=== PATIENT | male | born 1945 | race Caucasian/White ===

== ENCOUNTER → 2017-04-03 11:54 | Emergency (ER) | payer MEDICARE ==
[~2017-04-03 11:54] MED LIST: Iodixanol* (CONTRAST) 320 MG/ML 100 ML SDV IV ONE; NS 0.9% 1000 ML* 1,000 ML IV ONE
[2017-04-03 13:34] LABS: Hematocrit 41 % (42-52); Hemoglobin 13.9 g/dl (14.0-18.0); Mean Corpuscular HGB Conc 34 g/dl (31-36); Mean Corpuscular Hemoglobin 30 pg (27-31); Mean Corpuscular Volume 90 fL (80-94); Mean Platelet Volume 8 um3 (7.4-10.4); Red Blood Count 4.56 10^6/ul (4.0-5.4); Red Cell Distribution Width 14 % (10.5-15); White Blood Count 6.2 10^3/ul (3.5-10.8)
[2017-04-03 13:49] LABS: ALT 16 U/L (7-52); AST 23 U/L (13-39); Albumin 4.1 g/dL (3.2-5.2); Alkaline Phosphatase 64 U/L (34-104); Anion Gap 2 mmol/L (2-11); BUN/Creatinine Ratio 12.4 (8-20); Blood Urea Nitrogen 12 mg/dL (6-24); C Reactive Protein < 1.00 mg/L (< 5.00); CO2 Carbon Dioxide 36 mmol/L (22-32); Calcium 9.7 mg/dL (8.6-10.3); Chloride 100 mmol/L (101-111); EGFR African American 98.4 (>60); EGFR Non-African American 76.5 (>60); Globulin 2.6 g/dL (2-4); Glucose 118 mg/dL (70-100); Lipase 28 U/L (11.0-82.0); Potassium 4.9 mmol/L (3.5-5.0); Sodium 138 mmol/L (133-145); Total Protein 6.7 g/dL (6.4-8.9)
[2017-04-03 13:52] LABS: Urine Bacteria Absent (Absent); Urine Bilirubin Negative (Negative); Urine Glucose Negative (Negative); Urine Nitrite Negative (Negative)
--- NOTE | 2017-04-03 14:10 | RAD ---
HISTORY: Right lower quadrant, right inguinal pain and swelling COMPARISONS: None TECHNIQUE: Multiple transverse and longitudinal ultrasound images were obtained of the scrotum, using grayscale, color Doppler, and spectral Doppler imaging. FINDINGS: RIGHT: RIGHT TESTICLE: The right testicle measures 4.8 x 2.3 x 3.2 cm. The right testicle is homogeneous in echotexture, without testicular parenchymal mass. Normal arterial and venous waveforms are identified within the right testicle on spectral Doppler imaging. RIGHT EPIDIDYMIS: The right epididymis measures 0.8 cm at the head. RIGHT SCROTUM: There is no hydrocele or varicocele. LEFT: LEFT TESTICLE: The left testicle measures 4.4 x 2.4 x 2.9 cm. The left testicle is homogeneous in echotexture, without testicular parenchymal mass. Normal arterial and venous waveforms are identified within the left testicle on spectral Doppler imaging. LEFT EPIDIDYMIS: The left epididymis measures 1 cm at the head. LEFT SCROTUM: There is no hydrocele or varicocele. OTHER: None IMPRESSION: NO TESTICULAR PARENCHYMAL MASS. NO SONOGRAPHIC FEATURES OF TORSION. PLEASE NOTE THAT PARTIAL OR INTERMITTENT TORSION MAY BE SONOGRAPHICALLY NORMAL.
--- NOTE | 2017-04-03 15:29 | RAD ---
CLINICAL HISTORY: Right lower quadrant pain, epigastric pain, inguinal hernia COMPARISON: December 23, 2015 TECHNIQUE: Multiple contiguous axial CT scans were obtained of the abdomen and pelvis after the administration of intravenous contrast. Coronal and sagittal multiplanar reformations are submitted for review. Oral contrast was administered. Delayed images were obtained through the abdomen and pelvis. FINDINGS: LUNG BASES: The lung bases are clear. LIVER: The liver is diffusely low in attenuation compared to the spleen. There are no focal hepatic parenchymal masses. BILE DUCTS: There is no intrahepatic or extrahepatic biliary dilatation. GALLBLADDER: The gallbladder is normal, without pericholecystic inflammatory change. PANCREAS: The pancreas is normal, without mass or ductal dilatation. SPLEEN: Normal in size and appearance. UPPER GI TRACT: Evaluation of the gastrointestinal tract is limited by incomplete gastric distention. The upper GI tract is unremarkable. SMALL BOWEL AND MESENTERY: The small bowel is normal in contour, course, and caliber. There is no obstruction or dilatation. COLON: There is large amount of stool throughout the colon. There is a tubular, vermiform, hollow viscus that is blind ending, and originates from the cecum, consistent with a normal appendix. There is no periappendiceal inflammatory change. This is best seen on coronal images 50 through 54. ADRENALS: Normal bilaterally. KIDNEYS: The kidneys are normal in shape, size, contour, and axis. There is no hydronephrosis or nephrolithiasis. BLADDER: The bladder is smooth in contour. PELVIC ORGANS: The prostate is diffusely enlarged. The seminal vesicles are symmetric. AORTA: There is calcific atherosclerotic disease of the abdominal aorta and its branches, without aneurysmal dilatation IVC: Unremarkable LYMPH NODES: There is no lymphadenopathy by size criteria. ABDOMINAL WALL: There is minimal amount of fluid noted along the right inguinal canal and spermatic cord BONES AND SOFT TISSUES: Degenerative changes noted of the spine. In the area of low attenuation of the right proximal thigh and the previous examination, there is a heterogeneously enhancing lesion measuring approximately 4.3 x 3.1 x 2.9 cm in size. OTHER: None IMPRESSION: 1. FATTY LIVER. 2. LARGE AMOUNT OF STOOL THROUGHOUT THE COLON. 3. ENLARGED PROSTATE. 4. NORMAL APPENDIX. 5. IN THE AREA OF SUSPECTED HEMATOMA OF THE RIGHT THIGH ON THE PREVIOUS EXAMINATION, THERE IS A HETEROGENEOUSLY ENHANCING LESION, MEASURING UP TO 4.3 CM IN SIZE. WHILE THIS MAY REPRESENT CHRONIC HEMATOMA, THE IMAGING APPEARANCE IS ATYPICAL. RECOMMEND CONSIDERATION OF FURTHER EVALUATION CONTRAST ENHANCED MRI OR TISSUE SAMPLING IN THE NONACUTE SETTING. 6. THERE IS MILD INFLAMMATORY CHANGE OF THE RIGHT INGUINAL CANAL AND ALONG THE SPERMATIC CORD.
--- NOTE | 2017-04-03 16:04 | ED ---
Fredrick He SooYoung, scribed for Matthew Mcarthur MD on 04/03/17 at 1215 . Abdominal Pain/Male - HPI Summary HPI Summary: A 71 y/o M presents to ED with c/o suprapubic and umbilicus abd pain onset yesterday, which was still present and worsening this AM around 0900. Pain radiates to back. Pt has had a known hernia for approx 1.5 years. Denies nausea , dysuria, testicular pain. Alleviating factors: lying supine. He took one Vicodin this AM. Last BM was this AM and he says it was nml. Denies pain at bedside. He ate breakfast OK. Denies prev abd surgery. PCP is Dr. Farooq. - History of Current Complaint Chief Complaint: EDAbdPain Stated Complaint: ABD PAIN Time Seen by Provider: 04/03/17 12:06 Hx Obtained From: Patient Onset/Duration: Gradual Onset, Lasting Days - onset yesterday, Still Present Timing: Constant Severity Initially: Moderate Severity Currently: Moderate Pain Intensity: 4 Pain Scale Used: 0-10 Numeric Location: Suprapubic, Umbilical Radiates: Yes Radiates to: Back Alleviating Factor(s): Position - supine Associated Signs And Symptoms: Negative: Urinary Symptoms, Decreased Appetite, Nausea, Other - neg: testicular pain - Allergies/Home Medications Allergies/Adverse Reactions: Allergies Allergy/AdvReac Type Severity Reaction Status Date / Time Cephalexin [From Keflex] Allergy Unknown Verified 12/23/15 11:18 Reaction Details relefan Allergy Nausea And Uncoded 12/23/15 11:18 Vomiting PMH/Surg Hx/FS Hx/Imm Hx Previously Healthy: No Endocrine/Hematology History: Reports: Hx Diabetes - type II, resolved with weight loss Cardiovascular History: Reports: Hx Hypercholesterolemia, Hx Hypertension, Other Cardiovascular Problems/Disorders - HX OF A-FIB GI History: Reports: Hx Gastroesophageal Reflux Disease History: Reports: Hx Benign Prostatic Hyperplasia Musculoskeletal History: Reports: Hx Osteoporosis Denies: Hx Rheumatoid Arthritis Sensory History: Reports: Hx Contacts or Glasses Opthamlomology History: Reports: Hx Contacts or Glasses - Cancer History Cancer Type, Location and Year: 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 Negative: Nausea Negative: dysuria, other - neg: testicular pain All Other Systems Reviewed And Are Negative: Yes Physical Exam Triage Information Reviewed: Yes Vital Signs On Initial Exam: Initial Vitals Temp Pulse Resp BP Pulse Ox 99.6 F 106 20 147/85 97 04/03/17 12:06 04/03/17 12:06 04/03/17 12:06 04/03/17 12:06 04/03/17 12:06 Vital Signs Reviewed: Yes Appearance: Positive: Well-Appearing, No Pain Distress Skin: Positive: Warm, Skin Color Reflects Adequate Perfusion, Dry Head/Face: Positive: Normal Head/Face Inspection Eyes: Positive: EOMI, EDILMA ENT: Positive: Normal ENT inspection Neck: Positive: Supple, Nontender Respiratory/Lung Sounds: Positive: Clear to Auscultation, Breath Sounds Present Cardiovascular: Positive: RRR Abdomen Description: Positive: Nontender, Soft Bowel Sounds: Positive: Present Male Genital Exam: Positive: other - R inguinal swelling that is reducible and non-tender. Testicular exam is nml, non-swollen, non-tender.. Negative: inguinal tenderness, testicular tenderness (R), testicular tenderness (L) Musculoskeletal: Positive: Normal, Strength/ROM Intact Neurological: Positive: Normal, Sensory/Motor Intact, Alert, Oriented to Person Place, Time Psychiatric: Positive: Affect/Mood Appropriate Diagnostics - Vital Signs Vital Signs Temp Pulse Resp BP Pulse Ox 04/03/17 12:06 99.6 F 106 20 147/85 97 - Laboratory Lab Results: Lab Results 04/03/17 04/03/17 04/03/17 Range/Units 13:22 13:22 13:22 WBC 6.2 (3.5-10.8) 10^3/ul RBC 4.56 (4.0-5.4) 10^6/ul Hgb 13.9 L (14.0-18.0) g/dl Hct 41 L (42-52) % MCV 90 (80-94) fL MCH 30 (27-31) pg MCHC 34 (31-36) g/dl RDW 14 (10.5-15) % Plt Count 239 (150-450) 10^3/ul MPV 8 (7.4-10.4) um3 Neut % (Auto) 62.5 (38-83) % Lymph % (Auto) 25.6 (25-47) % Irion % (Auto) 6.2 (1-9) % Eos % (Auto) 4.6 (0-6) % Baso % (Auto) 1.1 (0-2) % Absolute Neuts (auto) 3.9 (1.5-7.7) 10^3/ul Absolute Lymphs (auto) 1.6 (1.0-4.8) 10^3/ul Absolute Monos (auto) 0.4 (0-0.8) 10^3/ul Absolute Eos (auto) 0.3 (0-0.6) 10^3/ul Absolute Basos (auto) 0.1 (0-0.2) 10^3/ul Absolute Nucleated RBC 0 10^3/ul Nucleated RBC % 0 INR (Anticoag Therapy) 1.96 H (0.89-1.11) APTT 37.9 H (26.0-36.3) seconds Sodium 138 (133-145) mmol/L Potassium 4.9 (3.5-5.0) mmol/L Chloride 100 L (101-111) mmol/L Carbon Dioxide 36 H (22-32) mmol/L Anion Gap 2 (2-11) mmol/L BUN 12 (6-24) mg/dL Creatinine 0.97 (0.67-1.17) mg/dL Est GFR ( Amer) 98.4 (>60) Est GFR (Non-Af Amer) 76.5 (>60) BUN/Creatinine Ratio 12.4 (8-20) Glucose 118 H (70-100) mg/dL Lactic Acid (0.5-2.0) mmol/L Calcium 9.7 (8.6-10.3) mg/dL Total Bilirubin 0.50 (0.2-1.0) mg/dL AST 23 (13-39) U/L ALT 16 (7-52) U/L Alkaline Phosphatase 64 (34-104) U/L C-Reactive Protein < 1.00 (< 5.00) mg/L Total Protein 6.7 (6.4-8.9) g/dL Albumin 4.1 (3.2-5.2) g/dL Globulin 2.6 (2-4) g/dL Albumin/Globulin Ratio 1.6 (1-3) Lipase 28 (11.0-82.0) U/L Urine Color Urine Appearance Urine pH (5-9) Ur Specific [place] (1.010-1.030) Urine Protein (Negative) Urine Ketones (Negative) Urine Blood (Negative) Urine Nitrate (Negative) Urine Bilirubin (Negative) Urine Urobilinogen (Negative) Ur Leukocyte Esterase (Negative) Urine WBC (Auto) (Absent) Urine RBC (Auto) (Absent) Urine Bacteria (Absent) Urine Glucose (Negative) 04/03/17 04/03/17 Range/Units 13:22 13:22 WBC (3.5-10.8) 10^3/ul RBC (4.0-5.4) 10^6/ul Hgb (14.0-18.0) g/dl Hct (42-52) % MCV (80-94) fL MCH (27-31) pg MCHC (31-36) g/dl RDW (10.5-15) % Plt Count (150-450) 10^3/ul MPV (7.4-10.4) um3 Neut % (Auto) (38-83) % Lymph % (Auto) (25-47) % Irion % (Auto) (1-9) % Eos % (Auto) (0-6) % Baso % (Auto) (0-2) % Absolute Neuts (auto) (1.5-7.7) 10^3/ul Absolute Lymphs (auto) (1.0-4.8) 10^3/ul Absolute Monos (auto) (0-0.8) 10^3/ul Absolute Eos (auto) (0-0.6) 10^3/ul Absolute Basos (auto) (0-0.2) 10^3/ul Absolute Nucleated RBC 10^3/ul Nucleated RBC % INR (Anticoag Therapy) (0.89-1.11) APTT (26.0-36.3) seconds Sodium (133-145) mmol/L Potassium (3.5-5.0) mmol/L Chloride (101-111) mmol/L Carbon Dioxide (22-32) mmol/L Anion Gap (2-11) mmol/L BUN (6-24) mg/dL Creatinine (0.67-1.17) mg/dL Est GFR ( Amer) (>60) Est GFR (Non-Af Amer) (>60) BUN/Creatinine Ratio (8-20) Glucose (70-100) mg/dL Lactic Acid 1.3 (0.5-2.0) mmol/L Calcium (8.6-10.3) mg/dL Total Bilirubin (0.2-1.0) mg/dL AST (13-39) U/L ALT (7-52) U/L Alkaline Phosphatase (34-104) U/L C-Reactive Protein (< 5.00) mg/L Total Protein (6.4-8.9) g/dL Albumin (3.2-5.2) g/dL Globulin (2-4) g/dL Albumin/Globulin Ratio (1-3) Lipase (11.0-82.0) U/L Urine Color Yellow Urine Appearance Cloudy Urine pH 8.0 (5-9) Ur Specific [place] 1.006 L (1.010-1.030) Urine Protein Negative (Negative) Urine Ketones Negative (Negative) Urine Blood Negative (Negative) Urine Nitrate Negative (Negative) Urine Bilirubin Negative (Negative) Urine Urobilinogen Negative (Negative) Ur Leukocyte Esterase 3+ H (Negative) Urine WBC (Auto) 3+(>20/hpf) H (Absent) Urine RBC (Auto) Absent (Absent) Urine Bacteria Absent (Absent) Urine Glucose Negative (Negative) Result Diagrams: 04/03/17 13:22 04/03/17 13:22 Lab Statement: Any lab studies that have been ordered have been reviewed, and results considered in the medical decision making process. - CT ABD/PEL CT CT Interpretation: Positive (See Comments) - IMPRESSION: 1. FATTY LIVER. 2. LARGE AMOUNT OF STOOL THROUGHOUT THE COLON. 3. ENLARGED PROSTATE. 4. NORMAL APPENDIX. 5. IN THE AREA OF SUSPECTED HEMATOMA OF THE RIGHT THIGH ON THE PREVIOUS EXAMINATION, THERE IS A HETEROGENEOUSLY ENHANCING LESION, MEASURING UP TO 4.3 CM IN SIZE. WHILE THIS MAY REPRESENT CHRONIC HEMATOMA, THE IMAGING APPEARANCE IS ATYPICAL. RECOMMEND CONSIDERATION OF FURTHER EVALUATION CONTRAST ENHANCED MRI OR TISSUE SAMPLING IN THE NONACUTE SETTING. 6. THERE IS MILD INFLAMMATORY CHANGE OF THE RIGHT INGUINAL CANAL AND ALONG THE SPERMATIC CORD. ED physician has reviewed this radiology report and agrees. CT Interpretation Completed By: Radiologist - Ultrasound No standard instances Ultrasound Interpretation: No Acute Changes - Testicular U/S IMPRESSION: NO TESTICULAR PARENCHYMAL MASS. NO SONOGRAPHIC FEATURES OF TORSION. PLEASE NOTE THAT PARTIAL OR INTERMITTENT TORSION MAY BE SONOGRAPHICALLY NORMAL. ED physician has reviewed this radiology report and agrees. Ultrasound Interpretation Completed By: Radiologist Re-Evaluation - Re-Evaluation 1 Re-Evaluation Time: 15:44 Change: Improved Comment: Discussing results with pt and family. Abdominal Pain Fem Course/Dx - Course Course Of Treatment: Pt is a 71 y/o M presenting with known inguinal, has c/o diffuse abd pain radiating to back onset yesterday and worsening this AM around 0900. Denies nausea, dysuria, testicular pain. Alleviating factors: lying supine. He took one Vicodin this AM. Last BM was this AM and he says it was nml. Denies abd SHx. PCP is Dr. Farooq. Medications reviewed. BP noted and advised to follow up with PCP. Bloodwork obtained. UA results are 3+ leukocyte esterase present, 3+ WBCs, and 1.006 specific gravity. PAIN FREE IN THE ED. DISCUSSED RESULTS WITH PATIENT TO INCLUDE THE THIGH MASS. HE WILL F/U WITH HIS PMD AND SURGERY; WILL RETURN IF WORSE. NO CRITICAL CARE TIME. - Diagnoses Provider Diagnoses: Abdominal pain, Inguinal hernia, right Discharge - Discharge Plan Condition: Stable Disposition: HOME Patient Education Materials: Inguinal Hernia (ED), Abdominal Pain (ED) Referrals: [facility] [Provider Group] Joshua Gordillo MD [Medical Doctor] - Montserrat Farooq MD [Primary Care Provider] - Additional Instructions: FOLLOW UP WITH YOUR DOCTOR FOR YOUR PAIN, HERNIA AND THE MASS IN YOUR THIGH. AN MRI OR BIOPSY IS RECOMMENDED FOR THE MASS IN YOUR THIGH; DISCUSS THIS WITH YOUR DOCTOR. FOLLOW UP WITH SURGERY FOR THE HERNIA. RETURN TO THE EMERGENCY DEPARTMENT FOR ANY WORSENING OF YOUR CONDITION; PAIN, FEVER, VOMITING, YOU FEEL ILL OR QUESTIONS OR CONCERNS. The documentation as recorded by the Fredrick gold SooYoung accurately reflects the service I personally performed and the decisions made by me, Matthew Mcarthur MD.
[2017-04-03 16:22] VITALS: BP 122/87
== END | disposition home or self-care (01) ==
LOC: ED 11:54
DX: K40.90 Unilateral inguinal hernia, without obstruction or gangrene, not specified as recurrent (principal); R10.9 Unspecified abdominal pain; Z87.891 Personal history of nicotine dependence
CPT/HCPCS: 36415; 74177; 76870; 80053; 81003; 81015; 83605; 83690; 85025; 85610; 85730; 86140; 87086; 99282; Q9967

== ENCOUNTER 2017-05-12 09:33 | Observation (INO) | payer MEDICARE ==
[~2017-05-12 09:33] MED LIST changes: +Buffered Lidocaine 0.9% SYRIN* 5 ML/SYR SYRINGE INTRADERM ONE; +Dexamethasone IV* 4 MG/ML 1 ML (4 MG) IV SLOW PU ONE; +Famotidine IV* 10 MG/ML 2 ML (20 mg) IV ONE; -Iodixanol* (CONTRAST) 320 MG/ML 100 ML SDV IV ONE; -NS 0.9% 1000 ML* 1,000 ML IV ONE
[2017-05-12] MEDS ORDERED: Famotidine IV* 10 MG/ML 2 ML (20 mg) ONE (09:51)
[2017-05-12] MEDS ORDERED: Dexamethasone IV* 4 MG/ML 1 ML (4 MG) ONE (09:51)
[2017-05-12] MEDS ORDERED: Clindamycin 900 MG IVPREMIX(* 900 MG/50 ML SDV IV ONE (09:51)
[2017-05-12] MEDS ORDERED: Buffered Lidocaine 0.9% SYRIN* 5 ML/SYR SYRINGE ONE (09:52)
[2017-05-12] MEDS ORDERED: Midazolam* 1 MG/ML 5 ML VIAL (5 MG) ONE (11:38)
[2017-05-12] MEDS ORDERED: fentaNYL* 50 MCG/ML 2 ML VIAL (100 MCG VIAL) ONE ×2 (11:38→12:40)
[2017-05-12] MEDS ORDERED: Lidocaine 1% MPF wEPI 200,000* 30 ML SDV ONE (12:01)
[2017-05-12] MEDS ORDERED: Bupivacaine 0.5% SDV PF* 30 ML VIAL ONE (12:02)
[2017-05-12] MEDS ORDERED: Lidocaine 1% INJ* 10 MG/ML 30 ML SDV ONE (12:02)
[2017-05-12] MEDS ORDERED: Propofol* 10 MG/ML 20 ML BTL IV PUSH ONE ×2 (12:09→12:10)
[2017-05-12] MEDS ORDERED: Ketorolac INJ* 30 MG/ML 1 ML VIAL ONE (12:09)
[2017-05-12] MEDS ORDERED: Acetaminophen TAB* 325 MG PO PRN (13:12)
[2017-05-12] MEDS ORDERED: Ondansetron INJ* 2 MG/ML VIAL IV PRN (13:12)
[2017-05-12] MEDS ORDERED: Ibuprofen TAB* 600 MG PO PRN (13:12)
[2017-05-12] MEDS ORDERED: Diazepam TAB(*) 5 MG PO PRN (13:25)
[2017-05-12] MEDS ORDERED: Lisinopril TAB* 5 MG PO SCH (18:00)
[2017-05-12] MEDS: HYDROcodone/ACETAMIN 5-325 MG* 1 TAB PO PRN (20:30)
[2017-05-12] MEDS: Docusate CAP* 100 MG PO SCH (20:30)
--- NOTE | 2017-05-13 04:32 | OP ---
CC: Dr. Montserrat Farooq * DATE OF OPERATION: 05/12/17 - ROOM #337 DATE OF : 47 SURGEON: Joshua Gordillo MD PRINCIPLE SOFTWARE ENGINEER: Jenna Bejarano NP ANESTHESIOLOGIST: Beto Maddox MD ANESTHESIA: LMAC anesthesia. PRE-OP DIAGNOSIS: Right inguinal hernia. POST-OP DIAGNOSES: Right inguinal hernia with suspicious looking mole of right groin. OPERATIVE PROCEDURE: Open right inguinal hernia repair with mesh and biopsy of right groin mole. DESCRIPTION OF PROCEDURE: The patient was supine in the operating room table. After adequate intravenous sedation, compression stockings, Alex Hugger warmer, and intravenous antibiotics, the right groin was clipped and prepped with antiseptic and draped in a sterile fashion. Local infiltrative anesthesia was administered. Right at the site of the groin incision, was a 1-cm mole which had variegated color, brown around the edge and kind of a pinkish brown in the center, somewhat irregularly shaped. It was decided that the biopsy would be carried out. Therefore, approximately a 3-inch incision was created with a small ellipse encompassing the mole which was removed and sent in formalin for pathologic evaluation. Incision was carried down to the external oblique fascia , which had a little bit of a fibrotic appearance, this was opened in the direction of its fibers. Cord structures were encircled. The [place] drain tented upward. A large indirect hernia sac was identified, was dissected from the cord structures and back to the preperitoneal fat and then it was reduced and a cone mesh plug was placed into the internal ring and sutured there with 2- 0 Vicryl. A second piece of mesh was placed on the inguinal floor, sutured at the tubercle at the transverse abdominis at the inguinal ligament and tails were split, brought around the cord structures and tacked down laterally. External oblique was closed over the top with 2-0 Vicryl followed by 3-0 Vicryl for Osito's and 4-0 Prolene for skin followed by sterile dressing. He tolerated the procedure well, was brought to Recovery in good condition. There were no complications. No drains. Pathologic specimen was skin biopsy. Sponge and instrument counts were correct. Estimated blood loss was 30 mL. [id number]/[facility] #: [id number] [facility]
[2017-05-13] MEDS: HYDROcodone/ACETAMIN 5-325 MG* 1 TAB PO PRN (08:36)
[2017-05-13] MEDS: Docusate CAP* 100 MG PO SCH (08:36)
[2017-05-13 08:59] VITALS: BP 129/69
[2017-05-13] MEDS ORDERED: Potassium Chlor TAB* 20 MEQ TAB.ER PO SCH (09:00)
[2017-05-13] MEDS ORDERED: Finasteride TAB* 5 MG PO SCH (09:00)
[2017-05-13] MEDS ORDERED: Diltiazem CD CAP* 120 MG PO SCH (09:00)
--- NOTE | 2017-05-13 10:24 | PN ---
Progress Note - Progress Note Date of Service: 05/13/17 Note: See dictated discharge summary. Home today. Instructions reviewed. I left a message w/ nsg at Dr. Farooq's office re: Rx for Coumadin as patient had discarded his remaining Rx when told to hold preop.
[2017-05-13] MEDS ORDERED: Warfarin TAB(*) 4 MG PO ONE (17:00)
--- NOTE | 2017-05-14 03:36 | DS ---
CC: Dr. Montserrat Farooq, [facility] * DISCHARGE SUMMARY: DATE OF ADMISSION: 05/12/17 DATE OF DISCHARGE: 05/13/17 ATTENDING PHYSICIAN: Dr. Gordillo * (DICTATED BY [facility] [place]) HOSPITAL COURSE: Please refer to admission history and physical for admission details and separate operative report. The patient was taken to the operating room on 05/12/17 and underwent open right inguinal herniorrhaphy with mesh with Dr. Gordillo. There was also an apparent skin lesion in the area of the incision and this was excised as well (pathology pending). Surgery and postoperative course have otherwise been uneventful and as of the morning of discharge, the patient's pain was well controlled and he was tolerating diet well. PHYSICAL EXAMINATION: Vital Signs: Temperature 97.7, blood pressure 129/69, pulse 84, respirations 17, room air saturation 100%. General: Well-nourished, well- developed, in no acute distress. Heart: Irregularly irregular, consistent with known atrial fibrillation. Lungs: Clear to auscultation. Abdomen: Soft, nontender. The right groin incision reveals small amount of dried blood on the dressing. No evidence of active bleeding, no hematoma, minimal incisional tenderness. Clean, dry sterile dressing was placed, which the patient may remove in 24 to 48 hours. IMPRESSION: Status post open right inguinal herniorrhaphy with mesh and excision of skin lesion. PLAN: Home today. Instructions were reviewed. I put a call into Dr. Farooq's office for his Coumadin prescription, which he may resume this evening per his usual preoperative regimen. [place] [place] [id number]/[facility] #: [id number] [facility]
== END 2017-05-13 10:41 | disposition home or self-care (01) ==
LOC: OR 09:33 → SSU 13:12
PROVIDERS: ADMIT Surgery; ATTEND Surgery
PROC: 0YU50JZ Supplement Right Inguinal Region with Synthetic Substitute, Open Approach (ICD-10-PCS; principal; 2017-05-12 12:00)
DX: K40.90 Unilateral inguinal hernia, without obstruction or gangrene, not specified as recurrent (principal); I48.91 Unspecified atrial fibrillation; Z79.01 Long term (current) use of anticoagulants; E11.9 Type 2 diabetes mellitus without complications; I10 Essential (primary) hypertension; E78.5 Hyperlipidemia, unspecified; K21.9 Gastro-esophageal reflux disease without esophagitis; M10.9 Gout, unspecified; F41.9 Anxiety disorder, unspecified; Z88.8 Allergy status to other drugs, medicaments and biological substances; Z87.891 Personal history of nicotine dependence; A63.0 Anogenital (venereal) warts
CPT/HCPCS: 36415; 85610; 88305; A9270-GY; C1781; G0378; J1100; J1885; J2001; J2250; J2704; J3010

== ENCOUNTER 2017-06-07 08:56 | Emergency (ER) | payer MEDICARE ==
[2017-06-07] MEDS ORDERED: NS 0.9% 1000 ML* 1,000 ML IV ONE (09:31)
[2017-06-07] MEDS ORDERED: Diazepam TAB(*) 5 MG PO ONE (09:31)
[2017-06-07 09:53] LABS: Hematocrit 43 % (42-52); Hemoglobin 14.7 g/dl (14.0-18.0); Mean Corpuscular HGB Conc 34 g/dl (31-36); Mean Corpuscular Hemoglobin 31 pg (27-31); Mean Corpuscular Volume 90 fL (80-94); Mean Platelet Volume 8 um3 (7.4-10.4); Red Blood Count 4.78 10^6/ul (4.0-5.4); Red Cell Distribution Width 14 % (10.5-15)
[2017-06-07 10:08] LABS: ALT 15 U/L (7-52); AST 22 U/L (13-39); Albumin 4.4 g/dL (3.2-5.2); Alkaline Phosphatase 75 U/L (34-104); Anion Gap 11 mmol/L (2-11); BUN/Creatinine Ratio 9.3 (8-20); Blood Urea Nitrogen 9 mg/dL (6-24); C Reactive Protein < 1.00 mg/L (< 5.00); CO2 Carbon Dioxide 27 mmol/L (22-32); Calcium 10.2 mg/dL (8.6-10.3); Chloride 104 mmol/L (101-111); EGFR African American 98.4 (>60); EGFR Non-African American 76.5 (>60); Globulin 2.7 g/dL (2-4); Glucose 113 mg/dL (70-100); Potassium 3.6 mmol/L (3.5-5.0); Sodium 142 mmol/L (133-145); Total Protein 7.1 g/dL (6.4-8.9)
[2017-06-07 10:20] LABS: Urine Bacteria 1+ (Absent); Urine Bilirubin Negative (Negative); Urine Glucose Negative (Negative); Urine Nitrite Negative (Negative)
[2017-06-07 10:28] LABS: Benzodiazepine Urine Screen Presumptive Positive (None Detect)
[2017-06-07 10:33] LABS: Acetaminophen < 15 mcg/mL; Alcohol < 10 mg/dL (<10); Salicylate < 2.50 mg/dL (<30)
--- NOTE | 2017-06-07 10:56 | RAD ---
HISTORY: Intermittent headache, anticoagulation COMPARISONS: June 17, 2015 TECHNIQUE: Multiple contiguous axial CT scans were obtained of the head without intravenous contrast. FINDINGS: HEMORRHAGE/INFARCT: There is no hemorrhage or acute infarct. MASSES/SHIFT: There is no mass or shift. EXTRA-AXIAL SPACES: There are no extra-axial fluid collections. SULCI AND VENTRICLES: The sulci and ventricles are normal in size and position for the patient's stated age. CEREBRUM: There are no focal parenchymal abnormalities. BRAINSTEM: There are no focal parenchymal abnormalities. CEREBELLUM: There are no focal parenchymal abnormalities. VESSELS: The vessels are grossly normal. PARANASAL SINUSES: There is mucosal thickening of the ethmoid air cells and maxillary sinuses. There is postsurgical change to the left nasal cavity. ORBITS: The orbits are unremarkable. BONES AND SOFT TISSUE: No bone or soft tissue abnormalities are noted. OTHER: None IMPRESSION: NO ACUTE INTRACRANIAL PATHOLOGY.
--- NOTE | 2017-06-07 11:05 | RAD ---
Indication: Hematuria. Coronal and sagittal reconstructed images were obtained. Lung bases demonstrate no pleural fluid, nodules or masses. Heart is of normal size without evidence of pericardial effusion. Liver is normal in size. No focal lesions or intrahepatic ductal dilatation is noted. The gallbladder demonstrates no calcified gallstones. No pericholecystic fluid or wall thickening is identified. Spleen is normal in size. No adrenal masses are noted. No hydronephrosis is noted in either kidney. No retroperitoneal lymphadenopathy is noted. Atherosclerotic aorta is noted. There is a distended urinary bladder. Enlarged prostate is noted. No hernias are noted. Stool is noted throughout the colon. IMPRESSION: No evidence of obstructive uropathy is noted. Nonobstructing calculi in the right kidney. No abnormal masses or fluid collections are noted. CT of the abdomen and pelvis was performed without oral or IV contrast administration. [facility]
[2017-06-07] MEDS ORDERED: Ciprofloxacin TAB* 500 MG PO ONE (13:48)
[2017-06-07 13:54] VITALS: BP 159/90
--- NOTE | 2017-06-07 13:54 | ED ---
Adolfo He Benjamin, scribed for Matthew Mcarthur MD on 06/07/17 at 0931 . GI/ HPI - HPI Summary HPI Summary: 71yo male c/o having blood in urine yesterday and this morning. Pt had hernia surgery 3 weeks ago. Denies any abdominal or back pain. No testicular pain. Pt reports chills but denies fever. Pt is currently on Coumadin. Also states that he has been having pressure in his head lately. Hx of kidney stones, and afib. - History of Current Complaint Chief Complaint: EDUrogenitalProblems Time Seen by Provider: 06/07/17 09:10 Stated Complaint: BLOOD IN URINE Hx Obtained From: Patient Onset/Duration: Started Days Ago - 1 day ago, Still Present Timing: Intermittent Severity: Mild Current Severity: None Vaginal Bleeding Description: Bright Red Pain Intensity: 0 Location of Pain: None Associated Signs and Symptoms: Positive: Hematuria, Chills. Negative: Back Pain , Weakness, Nausea, Vomiting, Bruising, Abdominal Pain Aggravating Factor(s): Nothing Alleviating Factor(s): Nothing - Additional Pertinent History Primary Care Physician: [id number] - Allergy/Home Medications Allergies/Adverse Reactions: Allergies Allergy/AdvReac Type Severity Reaction Status Date / Time Cephalexin [From Keflex] Allergy Unknown Verified 05/12/17 10:11 Reaction Details Nabumetone [From Relafen] AdvReac Nausea And Verified 05/12/17 13:57 Vomiting Home Medications: Home Medications Cholecalciferol TAB* [Vitamin D TAB*] 1,000 unit PO DAILY 06/07/17 [History Confirmed 06/07/17] Dextromethorphan LIQ(NF) [[facility] Diabetes CF (NF)] 10 ml PO DAILY PRN 06/07 [History Confirmed 06/07/17] Diltiazem CD CAP* [Cardizem CD CAP*] 120 mg PO DAILY 06/07/17 [History Confirmed 06/07/17] Hydrocodone-Acetaminophen [Lorcet Plus 7.5-325 mg] 1 tab PO .5TIMESDAILY PRN 06/12 [History Confirmed 06/07/17] Magnesium Oxide (mg Supplement [Magnesium Oxide] 250 mg PO DAILY 06/07/17 [ History Confirmed 06/07/17] Potassium Chlor TAB* [Klor Con ER TAB*] 20 meq PO DAILY 06/07/17 [History Confirmed 06/07/17] PMH/Surg Hx/FS Hx/Imm Hx Endocrine/Hematology History: Denies: Hx Diabetes - type II, resolved with weight loss Cardiovascular History: Reports: Hx Hypercholesterolemia, Hx Hypertension - ON DAILY MEDS, STATES WELL CONTROLLED, Hx Peripheral Vascular Disease - STATES HAS ANEURYSM BEHIND RT KNEE, Other Cardiovascular Problems/Disorders - FOLLOWED BY DR CHEN, SEEN LAST WEEK & STATES CLEARED Denies: Hx Pacemaker/ICD GI History: Reports: Hx Gastroesophageal Reflux Disease - ON DAILY MEDS History: Reports: Hx Benign Prostatic Hyperplasia, Hx Kidney Stones - 04/12, PASSED Musculoskeletal History: Reports: Hx Osteoporosis Denies: Hx Rheumatoid Arthritis Sensory History: Reports: Hx Contacts or Glasses - READING GLASSES Denies: Hx Hearing Aid Comment Only: Hx Cataracts - STATES RIGHT EYE SLOWLY GROWING Opthamlomology History: Reports: Hx Contacts or Glasses - READING GLASSES Comment Only: Hx Cataracts - STATES RIGHT EYE SLOWLY GROWING Psychiatric History: Reports: Hx Anxiety - PRN MEDS, Hx Depression - GETS VERY DPRESSED, NO SPECIFIC MEDS Denies: Hx Panic Disorder - Cancer History Cancer Type, Location and Year: 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 Hx Anesthesia Reactions: No Infectious Disease History: No Infectious Disease History: Denies: Traveled Outside the [place] in Last 30 Days - Family History Known Family History: Positive: Cardiac Disease - father, Diabetes - father - Social History Alcohol Use: None Hx Substance Use: No Substance Use Type: Reports: None Hx Tobacco Use: Yes Smoking Status (MU): Former Smoker Type: Cigarettes Amount Used/How Often: 2PPD 10 YRS Length of Time of Smoking/Using Tobacco: 10 YRS Have You Smoked in the Last Year: No Review of Systems Positive: Chills. Negative: Fever Eyes: Negative ENT: Negative Cardiovascular: Negative Respiratory: Negative Gastrointestinal: Negative Positive: hematuria Musculoskeletal: Negative Skin: Negative Positive: Headache - pressure in head Psychological: Normal All Other Systems Reviewed And Are Negative: Yes Physical Exam - Summary Physical Exam Summary: General: well-appearing, no pain distress Skin: warm, color reflects adequate perfusion, dry Head: normal Eyes: EOMI, EDILMA ENT: normal Neck: supple, nontender Respiratory: CTA, breath sounds present :normal scrotum exam. Cardiovascular: Irregularly irregular rhythm Abdomen: soft, nontender. healing surgical wound on lower abdomen without any erythema, tenderness or drainage. Bowel: present Musculoskeletal: normal, strength/ROM intact Neurological: normal, sensory/motor intact, A&O x3 Psychological: anxious Triage Information Reviewed: Yes Vital Signs On Initial Exam: Initial Vitals Temp Pulse Resp BP Pulse Ox 98.2 F 81 19 168/98 100 06/07/17 09:02 06/07/17 09:02 06/07/17 09:02 06/07/17 09:02 06/07/17 09:02 Vital Signs Reviewed: Yes Diagnostics - Vital Signs Vital Signs Temp Pulse Resp BP Pulse Ox 06/07/17 09:02 98.2 F 81 19 168/98 100 - Laboratory Lab Results: Lab Results 06/07/17 06/07/17 06/07/17 Range/Units 09:41 09:41 09:41 WBC (3.5-10.8) 10^3/ul RBC (4.0-5.4) 10^6/ul Hgb (14.0-18.0) g/dl Hct (42-52) % MCV (80-94) fL MCH (27-31) pg MCHC (31-36) g/dl RDW (10.5-15) % Plt Count (150-450) 10^3/ul MPV (7.4-10.4) um3 Neut % (Auto) (38-83) % Lymph % (Auto) (25-47) % [place] % (Auto) (1-9) % Eos % (Auto) (0-6) % Baso % (Auto) (0-2) % Absolute Neuts (auto) (1.5-7.7) 10^3/ul Absolute Lymphs (auto) (1.0-4.8) 10^3/ul Absolute Monos (auto) (0-0.8) 10^3/ul Absolute Eos (auto) (0-0.6) 10^3/ul Absolute Basos (auto) (0-0.2) 10^3/ul Absolute Nucleated RBC 10^3/ul Nucleated RBC % INR (Anticoag Therapy) 2.07 H (0.77-1.02) APTT 45.7 H (26.0-36.3) seconds Sodium 142 (133-145) mmol/L Potassium 3.6 (3.5-5.0) mmol/L Chloride 104 (101-111) mmol/L Carbon Dioxide 27 (22-32) mmol/L Anion Gap 11 (2-11) mmol/L BUN 9 (6-24) mg/dL Creatinine 0.97 (0.67-1.17) mg/dL Est GFR ( Amer) 98.4 (>60) Est GFR (Non-Af Amer) 76.5 (>60) BUN/Creatinine Ratio 9.3 (8-20) Glucose 113 H (70-100) mg/dL Lactic Acid (0.5-2.0) mmol/L Calcium 10.2 (8.6-10.3) mg/dL Total Bilirubin 0.90 (0.2-1.0) mg/dL AST 22 (13-39) U/L ALT 15 (7-52) U/L Alkaline Phosphatase 75 (34-104) U/L C-Reactive Protein < 1.00 (< 5.00) mg/L B-Natriuretic Peptide 100 ( - 100) pg/mL Total Protein 7.1 (6.4-8.9) g/dL Albumin 4.4 (3.2-5.2) g/dL Globulin 2.7 (2-4) g/dL Albumin/Globulin Ratio 1.6 (1-3) TSH 1.40 (0.34-5.60) mcIU/mL Urine Color Urine Appearance Urine pH (5-9) Ur Specific [place] (1.010-1.030) Urine Protein (Negative) Urine Ketones (Negative) Urine Blood (Negative) Urine Nitrate (Negative) Urine Bilirubin (Negative) Urine Urobilinogen (Negative) Ur Leukocyte Esterase (Negative) Urine WBC (Auto) (Absent) Urine RBC (Auto) (Absent) Urine Bacteria (Absent) Urine Glucose (Negative) Salicylates < 2.50 (<30) mg/dL Urine Opiates Screen (None Detect) Acetaminophen < 15 mcg/mL Ur Barbiturates Screen (None Detect) Ur Phencyclidine Scrn (None Detect) Ur Amphetamines Screen (None Detect) U Benzodiazepines Scrn (None Detect) Urine Cocaine Screen (None Detect) U Cannabinoids Screen (None Detect) Serum Alcohol < 10 (<10) mg/dL 06/07/17 06/07/17 06/07/17 Range/Units 09:41 09:41 10:00 WBC 6.0 (3.5-10.8) 10^3/ul RBC 4.78 (4.0-5.4) 10^6/ul Hgb 14.7 (14.0-18.0) g/dl Hct 43 (42-52) % MCV 90 (80-94) fL MCH 31 (27-31) pg MCHC 34 (31-36) g/dl RDW 14 (10.5-15) % Plt Count 263 (150-450) 10^3/ul MPV 8 (7.4-10.4) um3 Neut % (Auto) 61.9 (38-83) % Lymph % (Auto) 26.0 (25-47) % [place] % (Auto) 4.9 (1-9) % Eos % (Auto) 5.8 (0-6) % Baso % (Auto) 1.4 (0-2) % Absolute Neuts (auto) 3.7 (1.5-7.7) 10^3/ul Absolute Lymphs (auto) 1.6 (1.0-4.8) 10^3/ul Absolute Monos (auto) 0.3 (0-0.8) 10^3/ul Absolute Eos (auto) 0.4 (0-0.6) 10^3/ul Absolute Basos (auto) 0.1 (0-0.2) 10^3/ul Absolute Nucleated RBC 0 10^3/ul Nucleated RBC % 0 INR (Anticoag Therapy) (0.77-1.02) APTT (26.0-36.3) seconds Sodium (133-145) mmol/L Potassium (3.5-5.0) mmol/L Chloride (101-111) mmol/L Carbon Dioxide (22-32) mmol/L Anion Gap (2-11) mmol/L BUN (6-24) mg/dL Creatinine (0.67-1.17) mg/dL Est GFR ( Amer) (>60) Est GFR (Non-Af Amer) (>60) BUN/Creatinine Ratio (8-20) Glucose (70-100) mg/dL Lactic Acid 1.2 (0.5-2.0) mmol/L Calcium (8.6-10.3) mg/dL Total Bilirubin (0.2-1.0) mg/dL AST (13-39) U/L ALT (7-52) U/L Alkaline Phosphatase (34-104) U/L C-Reactive Protein (< 5.00) mg/L B-Natriuretic Peptide ( - 100) pg/mL Total Protein (6.4-8.9) g/dL Albumin (3.2-5.2) g/dL Globulin (2-4) g/dL Albumin/Globulin Ratio (1-3) TSH (0.34-5.60) mcIU/mL Urine Color Urine Appearance Urine pH (5-9) Ur Specific [place] (1.010-1.030) Urine Protein (Negative) Urine Ketones (Negative) Urine Blood (Negative) Urine Nitrate (Negative) Urine Bilirubin (Negative) Urine Urobilinogen (Negative) Ur Leukocyte Esterase (Negative) Urine WBC (Auto) (Absent) Urine RBC (Auto) (Absent) Urine Bacteria (Absent) Urine Glucose (Negative) Salicylates (<30) mg/dL Urine Opiates Screen Presumptive positive H (None Detect) Acetaminophen mcg/mL Ur Barbiturates Screen None detected (None Detect) Ur Phencyclidine Scrn None detected (None Detect) Ur Amphetamines Screen None detected (None Detect) U Benzodiazepines Scrn Presumptive positive H (None Detect) Urine Cocaine Screen None detected (None Detect) U Cannabinoids Screen None detected (None Detect) Serum Alcohol (<10) mg/dL 06/07/17 Range/Units 10:00 WBC (3.5-10.8) 10^3/ul RBC (4.0-5.4) 10^6/ul Hgb (14.0-18.0) g/dl Hct (42-52) % MCV (80-94) fL MCH (27-31) pg MCHC (31-36) g/dl RDW (10.5-15) % Plt Count (150-450) 10^3/ul MPV (7.4-10.4) um3 Neut % (Auto) (38-83) % Lymph % (Auto) (25-47) % [place] % (Auto) (1-9) % Eos % (Auto) (0-6) % Baso % (Auto) (0-2) % Absolute Neuts (auto) (1.5-7.7) 10^3/ul Absolute Lymphs (auto) (1.0-4.8) 10^3/ul Absolute Monos (auto) (0-0.8) 10^3/ul Absolute Eos (auto) (0-0.6) 10^3/ul Absolute Basos (auto) (0-0.2) 10^3/ul Absolute Nucleated RBC 10^3/ul Nucleated RBC % INR (Anticoag Therapy) (0.77-1.02) APTT (26.0-36.3) seconds Sodium (133-145) mmol/L Potassium (3.5-5.0) mmol/L Chloride (101-111) mmol/L Carbon Dioxide (22-32) mmol/L Anion Gap (2-11) mmol/L BUN (6-24) mg/dL Creatinine (0.67-1.17) mg/dL Est GFR ( Amer) (>60) Est GFR (Non-Af Amer) (>60) BUN/Creatinine Ratio (8-20) Glucose (70-100) mg/dL Lactic Acid (0.5-2.0) mmol/L Calcium (8.6-10.3) mg/dL Total Bilirubin (0.2-1.0) mg/dL AST (13-39) U/L ALT (7-52) U/L Alkaline Phosphatase (34-104) U/L C-Reactive Protein (< 5.00) mg/L B-Natriuretic Peptide ( - 100) pg/mL Total Protein (6.4-8.9) g/dL Albumin (3.2-5.2) g/dL Globulin (2-4) g/dL Albumin/Globulin Ratio (1-3) TSH (0.34-5.60) mcIU/mL Urine Color Yellow Urine Appearance Clear Urine pH 7.0 (5-9) Ur Specific [place] 1.005 L (1.010-1.030) Urine Protein Negative (Negative) Urine Ketones Negative (Negative) Urine Blood 3+ H (Negative) Urine Nitrate Negative (Negative) Urine Bilirubin Negative (Negative) Urine Urobilinogen Negative (Negative) Ur Leukocyte Esterase 2+ H (Negative) Urine WBC (Auto) 2+(11-20/hpf) H (Absent) Urine RBC (Auto) 3+(>10/hpf) H (Absent) Urine Bacteria 1+ H (Absent) Urine Glucose Negative (Negative) Salicylates (<30) mg/dL Urine Opiates Screen (None Detect) Acetaminophen mcg/mL Ur Barbiturates Screen (None Detect) Ur Phencyclidine Scrn (None Detect) Ur Amphetamines Screen (None Detect) U Benzodiazepines Scrn (None Detect) Urine Cocaine Screen (None Detect) U Cannabinoids Screen (None Detect) Serum Alcohol (<10) mg/dL Result Diagrams: 06/07/17 09:41 06/07/17 09:41 Lab Statement: Any lab studies that have been ordered have been reviewed, and results considered in the medical decision making process. - CT CT Brain CT Interpretation: No Acute Changes CT Interpretation Completed By: Radiologist - ED physician has reviewed this radiology report and agrees. CT A/P WO CT Interpretation: No Acute Changes - IMPRESSION: No evidence of obstructive uropathy is noted. Nonobstructing calculi in the right kidney. No abnormal masses or fluid collections are noted. CT of the abdomen and pelvis was performed without oral or IV contrast administration. CT Interpretation Completed By: Radiologist - ED physician has reviewed this radiology report and agrees. - EKG 0953 Cardiac Rate: NL EKG Rhythm: Atrial Fibrillation ST Segment: Normal Re-Evaluation - Re-Evaluation 1 Re-Evaluation Time: 13:40 Comment: Discuss test results and plan of care GIGU Course/Dx - Course Course Of Treatment: BP noted and advised to follow up with PCP. Allergies noted. Medications reviewed. DISCUSSED RESULTS WITH PATIENT. F/U WITH PMD; RETURN IF WORSE. NO CRITICAL CARE TIME. - Diagnoses Provider Diagnoses: UTI (urinary tract infection), Hematuria, Headache Discharge - Discharge Plan Condition: Stable Disposition: HOME Prescriptions: Ciprofloxacin TAB* [Cipro 500 MG TAB*] 500 mg PO BID #19 tab Patient Education Materials: Urinary Tract Infection in Men (ED), Hematuria (ED ), Acute Headache (ED) Referrals: Montserrat Farooq MD [Primary Care Provider] - Additional Instructions: FOLLOW UP WITH YOUR DOCTOR. CALL TODAY TO ARRANGE FOLLOW UP. IF YOU CONTINUE TO HAVE BLOOD IN YOUR URINE, YOU WILL NEED TO BE EVALUATED BY UROLOGY. RETURN TO THE EMERGENCY DEPARTMENT FOR ANY WORSENING OF YOUR CONDITION; PAIN, FEVER, YOU FEEL ILL, YOU ARE UNABLE TO URINATE, EXCESSIVE BLOOD IN THE URINE OR QUESTIONS OR CONCERNS. The documentation as recorded by the Adolfo gold Benjamin accurately reflects the service I personally performed and the decisions made by me, Matthew Mcarthur MD.
== END 2017-06-07 14:06 | disposition home or self-care (01) ==
LOC: ED 08:56
DX: N39.0 Urinary tract infection, site not specified (principal); R31.9 Hematuria, unspecified; R51 Headache
CPT/HCPCS: 36415; 70450; 74176; 80053; 80307; 80320; 80329; 81003; 81015; 83605; 83880; 84443; 85025; 85610; 85730; 86140; 87086; 93005; 96360; 99282; A9270-GY; G0480

== ENCOUNTER 2017-07-05 00:32 | Emergency (ER) | payer MEDICARE ==
[2017-07-05] MEDS ORDERED: NS 0.9% 1000 ML* 1,000 ML IV ONE (02:56)
[2017-07-05 03:25] LABS: ABS Basophils 0.1 10^3/ul (0-0.2); ABS Eosinophils 0.5 10^3/ul (0-0.6); ABS Lymphocytes 2.4 10^3/ul (1.0-4.8); ABS Monocytes 0.6 10^3/ul (0-0.8); ABS Neutrophils 4.2 10^3/ul (1.5-7.7); ABS Nucleated RBC 0 10^3/ul; Eosinophil % 6.1 % (0-6); Hematocrit 42 % (42-52); Hemoglobin 14.1 g/dl (14.0-18.0); Lymphocyte % 30.9 % (25-47); Mean Corpuscular HGB Conc 34 g/dl (31-36); Mean Corpuscular Hemoglobin 30 pg (27-31); Mean Corpuscular Volume 91 fL (80-94); Mean Platelet Volume 8 um3 (7.4-10.4); Nucleated Red Blood Cells % 0.1; Platelet Count 241 10^3/ul (150-450); Red Blood Count 4.64 10^6/ul (4.0-5.4); Red Cell Distribution Width 14 % (10.5-15); White Blood Count 7.8 10^3/ul (3.5-10.8)
[2017-07-05 03:33] LABS: INR 2.24 (0.77-1.02)
[2017-07-05 03:40] LABS: EGFR Non-African American 83.4 (>60)
[2017-07-05 04:18] LABS: Urine Appearance Cloudy; Urine Blood 3+ (Negative); Urine Color Yellow; Urine Ketones Negative (Negative); Urine Protein Negative (Negative); Urine Specific Gravity 1.015 (1.010-1.030); Urine Urobilinogen Negative (Negative)
[2017-07-05] MEDS ORDERED: Iodixanol* (CONTRAST) 320 MG/ML 100 ML SDV IV ONE (05:23)
[2017-07-05] MEDS ORDERED: Ciprofloxacin TAB* 500 MG PO ONE (05:48)
[2017-07-05 06:48] VITALS: BP 137/73
--- NOTE | 2017-07-05 07:10 | ED ---
Jamison He Natalie, scribed for Matthew Mcarthur MD on 07/05/17 at 0251 . GI/ HPI - HPI Summary HPI Summary: The pt is a 71 y/o M presenting to the ED c/o groin pain starting today. The pain is described as a burning and feeling like a bee-sting. The pain is rated 6/10. He does not currently have pain. Pt additionally c/o increased frequency of urination, green urine that started two weeks ago, dysuria, chills, and normal BM. Pt denies testicular pain, leg pain, and fever. He had hernia operation 3 weeks ago. - History of Current Complaint Chief Complaint: EDGeneral Time Seen by Provider: 07/05/17 02:39 Stated Complaint: GROIN PAIN Hx Obtained From: Patient Onset/Duration: Started Hours Ago, Still Present Pain Intensity: 6 Location of Pain: Groin Pain Characteristics: Burning, Other: - "bee sting" Associated Signs and Symptoms: Positive: Dysuria, Chills, Other: - POSITIVE: "green" urine, normal BM; NEGATIVE: testicular or leg pain. Negative: Fever - Additional Pertinent History Primary Care Physician: [id number] - Allergy/Home Medications Allergies/Adverse Reactions: Allergies Allergy/AdvReac Type Severity Reaction Status Date / Time Cephalexin [From Keflex] Allergy Unknown Verified 05/12/17 10:11 Reaction Details Nabumetone [From Relafen] AdvReac Nausea And Verified 05/12/17 13:57 Vomiting PMH/Surg Hx/FS Hx/Imm Hx Previously Healthy: No Endocrine/Hematology History: Denies: Hx Diabetes - type II, resolved with weight loss Cardiovascular History: Reports: Hx Hypercholesterolemia, Hx Hypertension - ON DAILY MEDS, STATES WELL CONTROLLED, Hx Peripheral Vascular Disease - STATES HAS ANEURYSM BEHIND RT KNEE, Other Cardiovascular Problems/Disorders - FOLLOWED BY DR CHEN, SEEN LAST WEEK & STATES CLEARED Denies: Hx Pacemaker/ICD GI History: Reports: Hx Gastroesophageal Reflux Disease - ON DAILY MEDS History: Reports: Hx Benign Prostatic Hyperplasia, Hx Kidney Stones - 04/12, PASSED Musculoskeletal History: Reports: Hx Osteoporosis Denies: Hx Rheumatoid Arthritis Sensory History: Reports: Hx Contacts or Glasses - READING GLASSES Denies: Hx Hearing Aid Comment Only: Hx Cataracts - STATES RIGHT EYE SLOWLY GROWING Opthamlomology History: Reports: Hx Contacts or Glasses - READING GLASSES Comment Only: Hx Cataracts - STATES RIGHT EYE SLOWLY GROWING Psychiatric History: Reports: Hx Anxiety - PRN MEDS, Hx Depression - GETS VERY DPRESSED, NO SPECIFIC MEDS Denies: Hx Panic Disorder - Cancer History Cancer Type, Location and Year: 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 Hx Anesthesia Reactions: No Infectious Disease History: No Infectious Disease History: Denies: Traveled Outside the [place] in Last 30 Days - Family History Known Family History: Positive: Cardiac Disease - father, Diabetes - father - Social History Alcohol Use: None Hx Substance Use: No Substance Use Type: Reports: None Hx Tobacco Use: Yes Smoking Status (MU): Former Smoker Type: Cigarettes Amount Used/How Often: 2PPD 10 YRS Length of Time of Smoking/Using Tobacco: 10 YRS Have You Smoked in the Last Year: No Review of Systems Negative: Fever Eyes: Negative ENT: Negative Cardiovascular: Negative Respiratory: Negative Positive: Abdominal Pain Positive: dysuria Musculoskeletal: Negative Skin: Negative Neurological: Negative Psychological: Normal All Other Systems Reviewed And Are Negative: Yes Physical Exam Triage Information Reviewed: Yes Vital Signs On Initial Exam: Initial Vitals Temp Pulse Resp BP Pulse Ox 98.9 F 84 18 142/89 99 07/05/17 00:40 07/05/17 00:40 07/05/17 00:40 07/05/17 00:40 07/05/17 00:40 Vital Signs Reviewed: Yes Appearance: Positive: Well-Appearing, No Pain Distress Skin: Positive: Warm, Skin Color Reflects Adequate Perfusion, Dry Head/Face: Positive: Normal Head/Face Inspection Eyes: Positive: EOMI, EDILMA ENT: Positive: Normal ENT inspection Neck: Positive: Supple, Nontender Respiratory/Lung Sounds: Positive: Clear to Auscultation, Breath Sounds Present Cardiovascular: Positive: RRR Abdomen Description: Positive: Soft, Other: - mild tenderness in suprapubic region, no erythema Bowel Sounds: Positive: Present Musculoskeletal: Positive: Strength/ROM Intact, Other - pedal edema, calves nontender Neurological: Positive: Normal, Sensory/Motor Intact, Alert, Oriented to Person Place, Time - [place] Coma Scale Coma Scale Total: 15 Diagnostics - Vital Signs Vital Signs Temp Pulse Resp BP Pulse Ox 07/05/17 00:40 98.9 F 84 18 142/89 99 - Laboratory Lab Results: Lab Results 07/05/17 07/05/17 07/05/17 Range/Units 02:34 03:04 03:04 WBC (3.5-10.8) 10^3/ul RBC (4.0-5.4) 10^6/ul Hgb (14.0-18.0) g/dl Hct (42-52) % MCV (80-94) fL MCH (27-31) pg MCHC (31-36) g/dl RDW (10.5-15) % Plt Count (150-450) 10^3/ul MPV (7.4-10.4) um3 Neut % (Auto) (38-83) % Lymph % (Auto) (25-47) % [place] % (Auto) (1-9) % Eos % (Auto) (0-6) % Baso % (Auto) (0-2) % Absolute Neuts (auto) (1.5-7.7) 10^3/ul Absolute Lymphs (auto) (1.0-4.8) 10^3/ul Absolute Monos (auto) (0-0.8) 10^3/ul Absolute Eos (auto) (0-0.6) 10^3/ul Absolute Basos (auto) (0-0.2) 10^3/ul Absolute Nucleated RBC 10^3/ul Nucleated RBC % INR (Anticoag Therapy) 2.24 H (0.77-1.02) APTT 43.0 H (26.0-36.3) seconds Sodium 138 (133-145) mmol/L Potassium 3.6 (3.5-5.0) mmol/L Chloride 101 (101-111) mmol/L Carbon Dioxide 33 H (22-32) mmol/L Anion Gap 4 (2-11) mmol/L BUN 10 (6-24) mg/dL Creatinine 0.90 (0.67-1.17) mg/dL Est GFR ( Amer) 107.3 (>60) Est GFR (Non-Af Amer) 83.4 (>60) BUN/Creatinine Ratio 11.1 (8-20) Glucose 104 H (70-100) mg/dL Lactic Acid (0.5-2.0) mmol/L Calcium 9.4 (8.6-10.3) mg/dL Total Bilirubin 0.60 (0.2-1.0) mg/dL AST 22 (13-39) U/L ALT 14 (7-52) U/L Alkaline Phosphatase 54 (34-104) U/L C-Reactive Protein 6.53 H (< 5.00) mg/L Total Protein 6.7 (6.4-8.9) g/dL Albumin 4.1 (3.2-5.2) g/dL Globulin 2.6 (2-4) g/dL Albumin/Globulin Ratio 1.6 (1-3) Lipase 18 (11.0-82.0) U/L Urine Color Yellow Urine Appearance Cloudy Urine pH 6.0 (5-9) Ur Specific [place] 1.015 (1.010-1.030) Urine Protein Negative (Negative) Urine Ketones Negative (Negative) Urine Blood 3+ H (Negative) Urine Nitrate Negative (Negative) Urine Bilirubin Negative (Negative) Urine Urobilinogen Negative (Negative) Ur Leukocyte Esterase 3+ H (Negative) Urine WBC (Auto) 3+(>20/hpf) H (Absent) Urine RBC (Auto) 3+(>10/hpf) H (Absent) Calcium Oxalate Crystal Present H (Absent) Urine Bacteria Absent (Absent) Urine Glucose Negative (Negative) Urine Ascorbic Acid * H (Negative) 07/05/17 07/05/17 Range/Units 03:04 03:04 WBC 7.8 (3.5-10.8) 10^3/ul RBC 4.64 (4.0-5.4) 10^6/ul Hgb 14.1 (14.0-18.0) g/dl Hct 42 (42-52) % MCV 91 (80-94) fL MCH 30 (27-31) pg MCHC 34 (31-36) g/dl RDW 14 (10.5-15) % Plt Count 241 (150-450) 10^3/ul MPV 8 (7.4-10.4) um3 Neut % (Auto) 54.7 (38-83) % Lymph % (Auto) 30.9 (25-47) % [place] % (Auto) 7.5 (1-9) % Eos % (Auto) 6.1 H (0-6) % Baso % (Auto) 0.8 (0-2) % Absolute Neuts (auto) 4.2 (1.5-7.7) 10^3/ul Absolute Lymphs (auto) 2.4 (1.0-4.8) 10^3/ul Absolute Monos (auto) 0.6 (0-0.8) 10^3/ul Absolute Eos (auto) 0.5 (0-0.6) 10^3/ul Absolute Basos (auto) 0.1 (0-0.2) 10^3/ul Absolute Nucleated RBC 0 10^3/ul Nucleated RBC % 0.1 INR (Anticoag Therapy) (0.77-1.02) APTT (26.0-36.3) seconds Sodium (133-145) mmol/L Potassium (3.5-5.0) mmol/L Chloride (101-111) mmol/L Carbon Dioxide (22-32) mmol/L Anion Gap (2-11) mmol/L BUN (6-24) mg/dL Creatinine (0.67-1.17) mg/dL Est GFR ( Amer) (>60) Est GFR (Non-Af Amer) (>60) BUN/Creatinine Ratio (8-20) Glucose (70-100) mg/dL Lactic Acid 0.8 (0.5-2.0) mmol/L Calcium (8.6-10.3) mg/dL Total Bilirubin (0.2-1.0) mg/dL AST (13-39) U/L ALT (7-52) U/L Alkaline Phosphatase (34-104) U/L C-Reactive Protein (< 5.00) mg/L Total Protein (6.4-8.9) g/dL Albumin (3.2-5.2) g/dL Globulin (2-4) g/dL Albumin/Globulin Ratio (1-3) Lipase (11.0-82.0) U/L Urine Color Urine Appearance Urine pH (5-9) Ur Specific [place] (1.010-1.030) Urine Protein (Negative) Urine Ketones (Negative) Urine Blood (Negative) Urine Nitrate (Negative) Urine Bilirubin (Negative) Urine Urobilinogen (Negative) Ur Leukocyte Esterase (Negative) Urine WBC (Auto) (Absent) Urine RBC (Auto) (Absent) Calcium Oxalate Crystal (Absent) Urine Bacteria (Absent) Urine Glucose (Negative) Urine Ascorbic Acid (Negative) Result Diagrams: 07/05/17 03:04 07/05/17 03:04 Lab Statement: Any lab studies that have been ordered have been reviewed, and results considered in the medical decision making process. - CT Abdomen/Pelvis CT CT Interpretation: Positive (See Comments) - Tiny right renal stone. Large amount of solid stool. Possible neurogenic bladder. Mild prostate enlargement. Soft tissue mass anterior to the right femoral neck could represent neoplasm and should be further evaluated with enhanced MRI. ED physician has reviewed this report. CT Interpretation Completed By: Radiologist LENA Course/Dx - Course Course Of Treatment: Advised to follow up with PCP. Medications noted. Allergies noted. DISCUSSED RESULTS WITH PATIENT TO INCLUDE THE RIGHT THIGH MASS. DISCUSSED THE THIGH MASS WITH DR AU, HEMATOLOGY/ONCOLOGY. PATIENT WILL F/U WITH HEMATOLOGY/ONCOLOGY AND PMD; RETURN IF WORSE. - Diagnoses Provider Diagnoses: UTI (urinary tract infection), Mass of right thigh, Abdominal pain Discharge - Discharge Plan Condition: Stable Disposition: HOME Prescriptions: Ciprofloxacin TAB* [Cipro 500 MG TAB*] 500 mg PO BID #13 tab Patient Education Materials: Urinary Tract Infection in Men (ED), Abdominal Pain (ED) Referrals: Montserrat Farooq MD [Primary Care Provider] - Additional Instructions: FOLLOW UP WITH YOUR PRIMARY CARE DOCTOR FOR THE UTI AND WITH HEMATOLOGY/ ONCOLOGY FOR THE MASS IN YOUR RIGHT THIGH. THE MASS IN YOUR RIGHT THIGH NEEDS FURTHER EVALUATION BY MRI AND/OR BIOPSY IT COULD BE CANCER. RETURN TO THE EMERGENCY DEPARTMENT FOR ANY WORSENING OF YOUR CONDITION OR QUESTIONS OR CONCERNS. The documentation as recorded by the Jamison gold Natalie accurately reflects the service I personally performed and the decisions made by me, Matthew Mcarthur MD.
--- NOTE | 2017-07-05 08:23 | RAD ---
INDICATION: Suprapubic pain. Recent hernia repair. COMPARISON: June 07, [address] TECHNIQUE: Multidetector CT images were obtained from the lung bases to the ischial tuberosities with 96 mL Visipaque 320 IV and oral contrast. Multiplanar reformation. REPORT: Unremarkable visualized inferior thorax. Unremarkable liver and gallbladder. Negative for biliary dilatation. Mildly atrophic pancreas. Unremarkable spleen. Enteric contrast extends to the ileum but does not reach the ileocecal valve. No CT abnormality of the upper GI, small bowel, medially extending appendix, or colon. Moderately large volume of stool within the colon. Negative for ascites or free air. Mild subcutaneous and fascia edema at the RIGHT groin corresponds with history of recent hernia repair. The RIGHT spermatic cord and pampiniform plexus complex remains larger than the LEFT however the discrepancy is decreased compared with the prior exam. No recurrent or new hernia evident. Normal adrenal glands. 2 mm nonobstructing calyceal stone lower pole RIGHT kidney without change. Symmetric nephrograms and pyelograms. Negative for suspicious focal renal lesions or hydronephrosis. Unremarkable nondilated ureters. Moderately distended urinary bladder without CT evidence for bladder wall thickening. Enlarged prostate with extensive macroscopic calcification. The enlarged prostate protrudes into the floor of the urinary bladder. Negative for lymphadenopathy. Normal diameter abdominal aorta and iliac arteries with mild atherosclerotic plaque. Physiologic distention of the IVC. 3.7 cm AP by 4.6 cm transverse by 5.1 cm cephalocaudal heterogeneously enhancing mass within the anterior skeletal muscle compartment of the RIGHT thigh subjacent to the tensor fascia césar and rectus femoris muscle and superficial to the vastus lateralis is concerning for a primary sarcoma or a metastatic lesion. No additional soft tissue plane lesions evident. Negative for suspicious focal osseous lesions. Lumbar sacral spine degenerative spondylosis and facet joint osteoarthritis. Degenerative spondylosis and facet joint osteoarthritis results in moderately severe acquired central canal stenosis at L4-L5 without significant interval change. IMPRESSION: 1. Normal appendix documented. No acute pathologic process of the alimentary tract evident. 2. Negative for ascites or free air. 3. Negative for recurrent or new hernia. Mild postsurgical change of the RIGHT groin corresponding with history of recent hernia repair. The RIGHT spermatic cord and pampiniform plexus complex remains larger than the LEFT however the discrepancy is decreased compared with the prior exam. 4. Enlarged prostate protrudes into the floor of the urinary bladder. Moderately distended urinary bladder without gross CT evidence for wall thickening or other abnormality. Correlate for BPH/urinary retention. 5. Small nonobstructing RIGHT renal stone. 6. Suspicious soft tissue mass within the proximal RIGHT thigh anterior muscle compartment. Targeted ultrasound is suggested to assess for feasibility of ultrasound-guided biopsy.
== END 2017-07-05 07:17 | disposition home or self-care (01) ==
LOC: ED 00:32
DX: N39.0 Urinary tract infection, site not specified (principal); M79.9 Soft tissue disorder, unspecified; N20.0 Calculus of kidney; N40.0 Benign prostatic hyperplasia without lower urinary tract symptoms; Z87.891 Personal history of nicotine dependence; Z88.3 Allergy status to other anti-infective agents; Z88.8 Allergy status to other drugs, medicaments and biological substances
CPT/HCPCS: 36415; 74177; 80053; 81003; 81015; 83605; 83690; 85025; 85610; 85730; 86140; 87086; 96360; 99283; A9270-GY; Q9967

== ENCOUNTER → 2017-12-28 19:38 | Emergency (ER) | payer MEDICARE ==
[2017-12-28 20:27] LABS: ABS Basophils 0.1 10^3/ul (0-0.2); ABS Eosinophils 0.4 10^3/ul (0-0.6); ABS Lymphocytes 2.4 10^3/ul (1.0-4.8); ABS Monocytes 0.6 10^3/ul (0-0.8); ABS Neutrophils 4.5 10^3/ul (1.5-7.7); ABS Nucleated RBC 0 10^3/ul; Eosinophil % 4.5 % (0-6); Hematocrit 38 % (42-52); Hemoglobin 12.9 g/dl (14.0-18.0); Lymphocyte % 29.9 % (25-47); Mean Corpuscular HGB Conc 34 g/dl (31-36); Mean Corpuscular Hemoglobin 31 pg (27-31); Mean Corpuscular Volume 91 fL (80-94); Mean Platelet Volume 8.8 um3 (7.4-10.4); Nucleated Red Blood Cells % 0.1; Platelet Count 238 10^3/ul (150-450); Red Cell Distribution Width 14 % (10.5-15); White Blood Count 7.9 10^3/ul (3.5-10.8)
--- NOTE | 2017-12-28 20:33 | RAD ---
INDICATION: Dizziness COMPARISON: CT brain June 07, 2017 TECHNIQUE: Noncontrast axial source images were acquired from the skull base to the vertex. FINDINGS: Ventricles/sulci: There is cortical atrophy with compensatory dilatation of the CSF spaces. Brain parenchyma: There is no focal parenchymal finding, evidence of intracranial mass, or intracranial mass effect. Intracranial hemorrhage:None. Extra-axial spaces: There are no abnormal extra axial fluid collections or evidence of extra-axial mass. Calvarium: There is no calvarial fracture or other calvarial abnormality. Scalp: There is no evidence of scalp or extracalvarial soft tissue abnormality. Paranasal sinuses/mastoid: The paranasal sinuses and mastoid air cells are clear. There is postsurgical change involving the left nasal cavity Other: None. IMPRESSION: NO ACUTE INTRACRANIAL FINDINGS. AGE-RELATED CORTICAL ATROPHY.
[2017-12-28 20:38] LABS: INR 2.91 (0.77-1.02)
--- NOTE | 2017-12-28 20:39 | RAD ---
INDICATION: Dizziness COMPARISON: Chest x-ray March 21, 2015 TECHNIQUE: A seated AP portable view obtained at 2033 hours is submitted. FINDINGS: Bones/Soft Tissues: There are no acute bony findings. Cardiomediastinal: The cardiomediastinal silhouette is normal. Lungs: There is an irregular 1.5 cm opacity projected over the left midlung field worrisome for a pulmonary parenchymal mass. This represents a new finding relative to the 2015 examination. Suggest contrast enhanced CT imaging the chest. As part of follow-up Pleura: There are no pleural effusions. Other: None IMPRESSION: 1.5 CM LEFT SIDED PARENCHYMAL OPACITY SUSPICIOUS FOR BRONCHOGENIC CARCINOMA. SUGGEST CT IMAGING FOLLOW-UP. Findings called to ED.
[2017-12-28 20:44] LABS: EGFR Non-African American 77.2 (>60)
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
[2017-12-28 21:58] VITALS: BP 138/86
== END | disposition home or self-care (01) ==
LOC: ED 19:38
DX: R42 Dizziness and giddiness (principal); R91.8 Other nonspecific abnormal finding of lung field; K92.1 Melena; R10.9 Unspecified abdominal pain; Z86.39 Personal history of other endocrine, nutritional and metabolic disease; I10 Essential (primary) hypertension; E78.00 Pure hypercholesterolemia, unspecified; I73.9 Peripheral vascular disease, unspecified; Z86.79 Personal history of other diseases of the circulatory system; K21.9 Gastro-esophageal reflux disease without esophagitis; N40.0 Benign prostatic hyperplasia without lower urinary tract symptoms; Z87.442 Personal history of urinary calculi; F41.9 Anxiety disorder, unspecified; F32.9 Major depressive disorder, single episode, unspecified; Z85.828 Personal history of other malignant neoplasm of skin; Z88.6 Allergy status to analgesic agent; Z88.1 Allergy status to other antibiotic agents; Z82.49 Family history of ischemic heart disease and other diseases of the circulatory system; Z83.3 Family history of diabetes mellitus; Z87.891 Personal history of nicotine dependence
CPT/HCPCS: 36415; 70450; 71045; 80053; 82270; 83605; 83735; 84484; 85025; 85610; 85730; 93005; 99283

== ENCOUNTER 2018-01-27 12:31 | Emergency (ER) | payer MEDICARE ==
[2018-01-27 12:41] VITALS: BP 132/75
[2018-01-27] MEDS ORDERED: Lidocaine 1%* 5 ML VIAL ONE (13:00)
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
--- NOTE | 2018-01-29 21:46 | UC ---
- Progress Note Progress Note: 01/29/2018 PT Dx w/ Cellulitis and Rx Augmentin PO. Wound culture positive for MRSA and Staph Aureus. Final report shows resistance to Augmentin and multiple other antibiotics. Sensitive to Doxycycline PO. Please Call PT and Advise to stop Augmentin PO and a new prescription for Doxycycline PO 1 tab PO BID x 10 days sent to pharmacy. Maddie Mario Discharge - Sign-Out/Discharge Documenting (check all that apply): Patient Departure - D/C home - Discharge Plan Condition: Stable Disposition: HOME Prescriptions: Amoxicillin/Clavulanate TAB* [Augmentin TAB 875*] 875 mg PO BID #20 tab Clindamycin HCl 150 mg PO QID #40 capsule Patient Education Materials: Cellulitis (ED) Referrals: Montserrat Farooq MD [Primary Care Provider] - Additional Instructions: Take medications as instructed and adhere to plan Take Acetaminophen or ibuprofen for pain or fever Increase your fluid intake Return to the or go to the emergency department if symptoms worsen Follow-up with primary care physician in next 2-3 days - Billing Disposition and Condition Condition: STABLE Disposition: Home
--- NOTE | 2018-01-29 21:53 | UC ---
- Progress Note Progress Note: 01/29/2018 Pt Rx doxycycline for his cellulitis since positive for MRSA and S. Aureus. Please inform the patient he needs to stop taking Calcium Carbonate while he takes the Doxycycline PO since it can cause and adverse reaction. Thank you Maddie Mario PA-C Discharge - Sign-Out/Discharge Documenting (check all that apply): Patient Departure - D/c home - Discharge Plan Condition: Stable Disposition: HOME Prescriptions: DOXYcycline CAP(*) [DOXYcycline 100MG CAP(*)] 100 mg PO BID #20 cap Patient Education Materials: Cellulitis (ED) Referrals: Montserrat Farooq MD [Primary Care Provider] - Additional Instructions: Take medications as instructed and adhere to plan Take Acetaminophen or ibuprofen for pain or fever Increase your fluid intake Return to the or go to the emergency department if symptoms worsen Follow-up with primary care physician in next 2-3 days - Billing Disposition and Condition Condition: STABLE Disposition: Home
== END 2018-01-27 13:30 | disposition home or self-care (01) ==
LOC: UCEAST 12:31
DX: L02.413 Cutaneous abscess of right upper limb (principal); L03.113 Cellulitis of right upper limb; B95.62 Methicillin resistant Staphylococcus aureus infection as the cause of diseases classified elsewhere; Z88.1 Allergy status to other antibiotic agents; Z88.8 Allergy status to other drugs, medicaments and biological substances; Z87.891 Personal history of nicotine dependence
CPT/HCPCS: 10060; 87070; 87077; 87186; 87205; 87640; 87641

== ENCOUNTER 2018-01-30 09:34 | Emergency (ER) | payer MEDICARE ==
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
[2018-01-30 09:41] VITALS: BP 127/83
== END 2018-01-30 10:00 | disposition home or self-care (01) ==
LOC: UCEAST 09:34
DX: L02.413 Cutaneous abscess of right upper limb (principal); Z88.6 Allergy status to analgesic agent; Z88.8 Allergy status to other drugs, medicaments and biological substances; Z82.49 Family history of ischemic heart disease and other diseases of the circulatory system; Z83.3 Family history of diabetes mellitus; Z87.891 Personal history of nicotine dependence
CPT/HCPCS: 99212; G0463

== ENCOUNTER 2018-02-01 09:30 | Emergency (ER) | payer MEDICARE ==
[2018-02-01 09:39] VITALS: BP 136/78
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
== END 2018-02-01 10:40 | disposition home or self-care (01) ==
LOC: UCEAST 09:30
DX: L02.411 Cutaneous abscess of right axilla (principal); Z88.1 Allergy status to other antibiotic agents; Z88.8 Allergy status to other drugs, medicaments and biological substances; Z82.49 Family history of ischemic heart disease and other diseases of the circulatory system; Z83.3 Family history of diabetes mellitus; Z87.891 Personal history of nicotine dependence
CPT/HCPCS: 99211; G0463

== ENCOUNTER 2018-02-03 06:22 | Emergency (ER) | payer MEDICARE ==
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
[2018-02-03 07:40] LABS: ABS Basophils 0.1 10^3/ul (0-0.2); ABS Eosinophils 0.5 10^3/ul (0-0.6); ABS Lymphocytes 1.7 10^3/ul (1.0-4.8); ABS Monocytes 0.4 10^3/ul (0-0.8); ABS Neutrophils 3.5 10^3/ul (1.5-7.7); ABS Nucleated RBC 0 10^3/ul; Eosinophil % 7.7 % (0-6); Hematocrit 39 % (42-52); Hemoglobin 13.2 g/dl (14.0-18.0); Lymphocyte % 28.3 % (25-47); Mean Corpuscular HGB Conc 34 g/dl (31-36); Mean Corpuscular Hemoglobin 31 pg (27-31); Mean Corpuscular Volume 91 fL (80-94); Mean Platelet Volume 7.9 um3 (7.4-10.4); Nucleated Red Blood Cells % 0.1; Platelet Count 284 10^3/ul (150-450); Red Blood Count 4.25 10^6/ul (4.00-5.40); Red Cell Distribution Width 14 % (10.5-15); White Blood Count 6.2 10^3/ul (3.5-10.8)
--- NOTE | 2018-02-03 07:45 | RAD ---
INDICATION: Hemoptysis. Known left chest mass COMPARISON: Chest x-ray December 28, 2017; CT chest January 12, 2018 TECHNIQUE: PA and lateral dual-energy views were obtained. FINDINGS: Bones/Soft Tissues: There are no acute bony findings. Cardiomediastinal: The cardiomediastinal silhouette is normal. Lungs: There are no infiltrates. There is hyperinflation with mild chronic interstitial change and there is a known left chest mass as best evaluated on the recent CT. The chest x-ray appearance is unchanged Pleura: There are no pleural effusions. Other: None IMPRESSION: LEFT CHEST MASS. HYPERINFLATION. NO ACUTE FINDINGS.
[2018-02-03 07:49] LABS: INR 2.51 (0.77-1.02)
[2018-02-03 07:57] LABS: EGFR Non-African American 75.4 (>60)
[2018-02-03 08:14] VITALS: BP 144/91
== END 2018-02-03 08:20 | disposition home or self-care (01) ==
LOC: ED 06:22
DX: R04.2 Hemoptysis (principal); R91.1 Solitary pulmonary nodule; I10 Essential (primary) hypertension; I48.91 Unspecified atrial fibrillation; K21.9 Gastro-esophageal reflux disease without esophagitis; Z79.01 Long term (current) use of anticoagulants; Z79.899 Other long term (current) drug therapy; Z87.891 Personal history of nicotine dependence; Z88.3 Allergy status to other anti-infective agents
CPT/HCPCS: 36415; 71046; 80053; 83605; 85025; 85610; 85730; 86140; 99283

== ENCOUNTER 2018-04-08 12:18 | Emergency (ER) | payer MEDICARE ==
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
[2018-04-08 13:54] VITALS: BP 120/81
== END 2018-04-08 13:52 | disposition home or self-care (01) ==
LOC: ED 12:18
DX: K92.0 Hematemesis (principal); E11.9 Type 2 diabetes mellitus without complications; I48.91 Unspecified atrial fibrillation; Z79.01 Long term (current) use of anticoagulants; E78.00 Pure hypercholesterolemia, unspecified; I10 Essential (primary) hypertension; I73.9 Peripheral vascular disease, unspecified; G47.30 Sleep apnea, unspecified; K21.9 Gastro-esophageal reflux disease without esophagitis; Z87.442 Personal history of urinary calculi; Z87.891 Personal history of nicotine dependence; C76.0 Malignant neoplasm of head, face and neck; C78.00 Secondary malignant neoplasm of unspecified lung
CPT/HCPCS: 99282

== ENCOUNTER 2018-04-27 23:39 | Emergency (ER) | payer MEDICARE ==
[2018-04-28 01:09] LABS: ABS Basophils 0.1 10^3/ul (0-0.2); ABS Eosinophils 0.5 10^3/ul (0-0.6); ABS Lymphocytes 2.1 10^3/ul (1.0-4.8); ABS Monocytes 0.5 10^3/ul (0-0.8); ABS Neutrophils 3.9 10^3/ul (1.5-7.7); ABS Nucleated RBC 0 10^3/ul; Eosinophil % 7.1 % (0-6); Hematocrit 41 % (42-52); Hemoglobin 13.8 g/dl (14.0-18.0); Lymphocyte % 30.1 % (25-47); Mean Corpuscular HGB Conc 34 g/dl (31-36); Mean Corpuscular Hemoglobin 31 pg (27-31); Mean Corpuscular Volume 91 fL (80-94); Mean Platelet Volume 8.1 um3 (7.4-10.4); Nucleated Red Blood Cells % 0; Platelet Count 219 10^3/ul (150-450); Red Blood Count 4.52 10^6/ul (4.00-5.40); Red Cell Distribution Width 14 % (10.5-15); White Blood Count 7.1 10^3/ul (3.5-10.8)
[2018-04-28 01:18] LABS: INR 1.99 (0.77-1.02)
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
[2018-04-28 02:23] LABS: Urine Appearance Cloudy; Urine Blood 3+ (Negative); Urine Color Yellow; Urine Ketones Negative (Negative); Urine Protein Negative (Negative); Urine Red Blood Cell 3+(>10/hpf) (Absent); Urine Specific Gravity 1.011 (1.010-1.030); Urine Urobilinogen Negative (Negative); Urine White Blood Cell 3+(>20/hpf) (Absent)
[2018-04-28 02:47] LABS: EGFR Non-African American 77.2 (>60)
--- NOTE | 2018-04-28 03:51 | RAD ---
EXAM: CT Abdomen and Pelvis Without Intravenous Contrast EXAM DATE/TIME: 04/28/2018 2:38 AM CLINICAL HISTORY: 72 years old, male; Signs and symptoms; Other: Hematuria; Patient HX: Lle tumor, has metastasized to lung TECHNIQUE: Axial computed tomography images of the abdomen and pelvis without intravenous contrast. All CT scans at this facility use at least one of these dose optimization techniques: automated exposure control; mA and/or kV adjustment per patient size (includes targeted exams where dose is matched to clinical indication); or iterative reconstruction. Coronal and sagittal reformatted images were created and reviewed. COMPARISON: No relevant prior studies available. FINDINGS: Lower thorax: No acute findings. ABDOMEN: Liver: Normal. No mass. Gallbladder and bile ducts: Normal. No calcified stones. No ductal dilation. Pancreas: Normal. No ductal dilation. Spleen: Normal. No splenomegaly. Adrenals: Normal. No mass. Kidneys and ureters: 3 mm nonobstructing calculus in the right midpole region. Stomach and bowel: Moderate colonic fecal load. Appendix: Appendix is unremarkable. PELVIS: Bladder: There is bladder wall thickening. There is a 1 cm bladder wall thickening which may represent a polyp(series 4, image 125). Reproductive: Prostate is enlarged and measures 5.1 x 6.5 cm with the multiple calcifications. ABDOMEN and PELVIS: Intraperitoneal space: Normal. No free air. No significant fluid collection. Bones/joints: Degenerative changes of the spine. Soft tissues: Unremarkable. Vasculature: Normal. No abdominal aortic aneurysm. Lymph nodes: Normal. No enlarged lymph nodes. IMPRESSION: 1. Enlarged prostate. 2. Bladder wall thickening with a 1 cm possible polyp. Direct cystoscopic examination can be obtained for evaluation of the mass/polyp. The diffuse bladder wall thickening may be secondary to infection/inflammation. Correlation with UA. To contact [facility] with a general question: Operations Center - [phone] For direct physician to physician contact: Physician Hotline - [phone] [facility] ([facility] Facility ID #[id number])
[2018-04-28] MEDS ORDERED: Nitrofurantoin Macrocrystals* 100 MG CAP PO ONE (04:10)
[2018-04-28 05:01] VITALS: BP 138/93
== END 2018-04-28 04:24 | disposition home or self-care (01) ==
LOC: ED 23:39
DX: N30.91 Cystitis, unspecified with hematuria (principal); N40.0 Benign prostatic hyperplasia without lower urinary tract symptoms; C34.90 Malignant neoplasm of unspecified part of unspecified bronchus or lung; C79.51 Secondary malignant neoplasm of bone; C79.89 Secondary malignant neoplasm of other specified sites; I48.91 Unspecified atrial fibrillation; Z79.01 Long term (current) use of anticoagulants; I10 Essential (primary) hypertension; K21.9 Gastro-esophageal reflux disease without esophagitis; Z88.1 Allergy status to other antibiotic agents; Z88.8 Allergy status to other drugs, medicaments and biological substances; Z87.891 Personal history of nicotine dependence
CPT/HCPCS: 36415; 74176; 80053; 81003; 81015; 85025; 85610; 85730; 87086; 99282; A9270-GY

== ENCOUNTER → 2018-05-05 11:17 | Emergency (ER) | payer MEDICARE ==
[~2018-05-05 11:17] MED LIST changes: -Buffered Lidocaine 0.9% SYRIN* 5 ML/SYR SYRINGE INTRADERM ONE; +Ciprofloxacin 400MG IVPREMIX(* 400 MG/200 ML BAG IVPB ONE; -Dexamethasone IV* 4 MG/ML 1 ML (4 MG) IV SLOW PU ONE; -Famotidine IV* 10 MG/ML 2 ML (20 mg) IV ONE; +NS 0.9% 1000 ML* 1,000 ML IV ONE
[2018-05-05 11:44] LABS: ABS Basophils 0.1 10^3/ul (0-0.2); ABS Eosinophils 1.2 10^3/ul (0-0.6); ABS Monocytes 0.7 10^3/ul (0-0.8); ABS Neutrophils 7.9 10^3/ul (1.5-7.7); ABS Nucleated RBC 0 10^3/ul; Hematocrit 42 % (42-52); Hemoglobin 14.1 g/dl (14.0-18.0); Lymphocyte % 8.9 % (25-47); Mean Corpuscular HGB Conc 34 g/dl (31-36); Mean Corpuscular Hemoglobin 31 pg (27-31); Mean Corpuscular Volume 91 fL (80-94); Mean Platelet Volume 8.2 fL (7.4-10.4); Nucleated Red Blood Cells % 0; Platelet Count 216 10^3/ul (150-450); Red Blood Count 4.56 10^6/ul (4.00-5.40); Red Cell Distribution Width 14 % (10.5-15); White Blood Count 10.9 10^3/ul (3.5-10.8)
[2018-05-05 11:53] LABS: INR 1.7 (0.77-1.02)
[2018-05-05 12:07] LABS: EGFR Non-African American 82.1 (>60)
[2018-05-05 13:43] LABS: Urine Appearance Cloudy; Urine Blood 3+ (Negative); Urine Color Amber; Urine Ketones Negative (Negative); Urine Protein Negative (Negative); Urine Red Blood Cell 3+(>10/hpf) (Absent); Urine Specific Gravity 1.008 (1.010-1.030); Urine Urobilinogen Negative (Negative); Urine White Blood Cell 3+(>20/hpf) (Absent)
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
--- NOTE | 2018-05-05 16:39 | CONSULT ---
Subjective Date of Service: 05/05/18 Interval History: Chief Complaint: Confusion History of Present Illness: Pt is a 72 year old male with a PMH of Lung cancer with mets to bone, HTN, Afib (on coumadin), HLD, diet controlled DM, BPH, DOLORES, anxiety who presented was sent to the ED from Dr. Moyer's office after seeming more confused than his baseline, not remembering that he had been to the office before, and having an brief episode of sharp chest pain lasting seconds. The patient describes the chest pain as a "twinge" that was maximum 2/10 and occurred in his lower left chest. He says he sometimes feels similar twinges in his right upper abdomen and things it is related to gas. The patient denied shortness of breath, orthopnea, palpitations, diaphoresis, N/V, abdominal pain, fevers, lower extremity swelling, headache or dizziness. In the ED, the pt had a CT brain which showed no acute intracranial process, EKG that showed pt's known A-fib, without evidence of ischemia or infarction. CXR demonstrated left midlung density that correlates with pt's klnown lung cancer, but no acute cardiopulmonary disease. Pt had negative troponin x2. Of note, pt was seen in this ED on 04/28 for dysuria and hematuria and was sent home with Macrobid. Culture from that time had no growth. Pt reports his symptoms of dysuria and visible hematuria have resolved since then, but UA was positive for blood and WBC and +1 bacteria. Pt is afebrile without leukocytosis and VSS. Urology follow -up is recommended. Also of note, the patient mentioned to staff that he wanted to "shoot himself" and was placed on 1:1 observation. The patient then said that he was joking and did not actually want to kill himself. He denied having a plan. Mental health will be evaluating the patient for this statement. Hospitalist team was asked to admit this patient for confusion and chest pain, and my recommendation is to admit the patient for additional workup, however the patient does not want to be admitted and wishes to leave against medical advice. The patient is alert and oriented to person, place, and situation. The patient was able to cogently list his reasons for wanting to leave. The patient was able to verbalize the risks of leaving and understands that he should return to the emergency room if he experiences a return of the chest pain or any other symptom. Dr. Garcia also evaluated the patient for decision making capacity and we believe the patient is able to make this decision. Dr. Garcia also spoke with the patient's daughter who agrees to follow up with the patient tomorrow. Family History: Findings - Pt reports a family history of heart disease in his mother. No family history of diabetes. Pt reports extensive family history of cancer in his mother, brother, and sisters Social History: Findings - Pt is not a current smoker or alcohol drinker, but does endorse substance abuse and tobacco abuse in his 20s-30s. THe patient would like to be full code and his medical decision maker is his clarita Paige. Past Medical History: Findings - Lung cancer, HTN, HLD, Afib (on warfarin), Diet controlled DM, BPH, DOLORES, Anxiety Review of Systems - Measurements Intake and Output: Intake and Output Last 24 Hours 05/03/18 05/04/18 05/05/18 05/06/18 06:59 06:59 06:59 06:59 Weight 79.379 kg - Review of Systems General Comments: I completed a 14 point review of systems. All the pertinent positives and negatives are mentioned in the history of present illness. The remaining review of systems are negative Objective Vital Signs - 8 hr 05/05/18 05/05/18 05/05/18 11:19 13:21 14:00 Temperature 98.8 F Pulse Rate 84 83 68 Respiratory 18 18 13 Rate Blood Pressure 124/74 (mmHg) O2 Sat by Pulse 99 100 97 Oximetry 05/05/18 05/05/18 05/05/18 14:53 15:00 15:23 Temperature Pulse Rate 92 74 75 Respiratory 20 18 23 Rate Blood Pressure 111/79 142/78 (mmHg) O2 Sat by Pulse 88 96 91 Oximetry 05/05/18 05/05/18 15:53 16:00 Temperature Pulse Rate 72 82 Respiratory 21 23 Rate Blood Pressure 145/85 (mmHg) O2 Sat by Pulse 97 92 Oximetry Oxygen Devices in Use Now: None Eyes: No Scleral Icterus, PERRLA Ears/Nose/Mouth/Throat: NL Teeth, Lips, Gums, Clear Oropharnyx, Mucous Membranes Moist Neck: NL Appearance and Movements; NL JVP, Trachea Midline Respiratory: Symmetrical Chest Expansion and Respiratory Effort, Clear to Auscultation Cardiovascular: NL Sounds; No Murmurs; No JVD, RRR, No Edema Abdominal: NL Sounds; No Tenderness; No Distention Extremities: No Edema, No Clubbing, Cyanosis Skin: No Rash or Ulcers, No Nodules or Sclerosis Neurological: NL Sensation, NL Muscle Strength and Tone, - - Alert and oriented to person, place, situation. Able to name president and discuss recent election results but was not able to name month or year. Says "I don't pay attention to time." No facial droop or pronator drift. Lines/Tubes/Other Access: Clean, Dry and Intact Peripheral IV Result Diagrams: 05/05/18 11:37 05/05/18 11:37 Additional Lab and Data: Lab Results 05/05/18 05/05/18 05/05/18 Range/Units 11:28 11:37 11:37 WBC 10.9 H (3.5-10.8) 10^3/ul RBC 4.56 (4.00-5.40) 10^6/ul Hgb 14.1 (14.0-18.0) g/dl Hct 42 (42-52) % MCV 91 (80-94) fL MCH 31 (27-31) pg MCHC 34 (31-36) g/dl RDW 14 (10.5-15) % Plt Count 216 (150-450) 10^3/ul MPV 8.2 (7.4-10.4) fL Neut % (Auto) 72.8 (38-83) % Lymph % (Auto) 8.9 L (25-47) % Latimer % (Auto) 6.6 (0-7) % Eos % (Auto) 11.0 H (0-6) % Baso % (Auto) 0.7 (0-2) % Absolute Neuts (auto) 7.9 H (1.5-7.7) 10^3/ul Absolute Lymphs (auto) 1.0 (1.0-4.8) 10^3/ul Absolute Monos (auto) 0.7 (0-0.8) 10^3/ul Absolute Eos (auto) 1.2 H (0-0.6) 10^3/ul Absolute Basos (auto) 0.1 (0-0.2) 10^3/ul Absolute Nucleated RBC 0 10^3/ul Nucleated RBC % 0 INR (Anticoag Therapy) (0.77-1.02) APTT (26.0-36.3) seconds Sodium 135 (135-145) mmol/L Potassium 4.1 (3.5-5.0) mmol/L Chloride 98 L (101-111) mmol/L Carbon Dioxide 30 (22-32) mmol/L Anion Gap 7 (2-11) mmol/L BUN 8 (6-24) mg/dL Creatinine 0.91 (0.67-1.17) mg/dL Est GFR ( Amer) 99.4 (>60) Est GFR (Non-Af Amer) 82.1 (>60) BUN/Creatinine Ratio 8.8 (8-20) Glucose 106 H (70-100) mg/dL Lactic Acid (0.5-2.0) mmol/L Calcium 9.7 (8.6-10.3) mg/dL Magnesium 2.1 (1.9-2.7) mg/dL Total Bilirubin 1.40 H (0.2-1.0) mg/dL AST 21 (13-39) U/L ALT 15 (7-52) U/L Alkaline Phosphatase 69 (34-104) U/L Total Creatine Kinase 61 (10-223) U/L CK-MB (CK-2) 1.2 (0.6-6.3) ng/mL Troponin I 0.00 (<0.04) ng/mL B-Natriuretic Peptide (<=100) pg/mL Total Protein 7.2 (6.4-8.9) g/dL Albumin 4.2 (3.2-5.2) g/dL Globulin 3.0 (2-4) g/dL Albumin/Globulin Ratio 1.4 (1-3) TSH 0.76 (0.34-5.60) mcIU/mL Urine Color Emma Urine Appearance Cloudy Urine pH 7.0 (5-9) Ur Specific Russell 1.008 L (1.010-1.030) Urine Protein Negative (Negative) Urine Ketones Negative (Negative) Urine Blood 3+ A (Negative) Urine Nitrate Negative (Negative) Urine Bilirubin Negative (Negative) Urine Urobilinogen Negative (Negative) Ur Leukocyte Esterase 3+ A (Negative) Urine WBC (Auto) 3+(>20/hpf) A (Absent) Urine RBC (Auto) 3+(>10/hpf) A (Absent) Ur Squamous Epith Cells Present A (Absent) Urine Bacteria 1+ A (Absent) Urine Glucose Negative (Negative) Salicylates < 2.50 (<30) mg/dL Acetaminophen < 15 mcg/mL Serum Alcohol < 10 (<10) mg/dL 05/05/18 05/05/18 05/05/18 Range/Units 11:37 11:37 11:37 WBC (3.5-10.8) 10^3/ul RBC (4.00-5.40) 10^6/ul Hgb (14.0-18.0) g/dl Hct (42-52) % MCV (80-94) fL MCH (27-31) pg MCHC (31-36) g/dl RDW (10.5-15) % Plt Count (150-450) 10^3/ul MPV (7.4-10.4) fL Neut % (Auto) (38-83) % Lymph % (Auto) (25-47) % Latimer % (Auto) (0-7) % Eos % (Auto) (0-6) % Baso % (Auto) (0-2) % Absolute Neuts (auto) (1.5-7.7) 10^3/ul Absolute Lymphs (auto) (1.0-4.8) 10^3/ul Absolute Monos (auto) (0-0.8) 10^3/ul Absolute Eos (auto) (0-0.6) 10^3/ul Absolute Basos (auto) (0-0.2) 10^3/ul Absolute Nucleated RBC 10^3/ul Nucleated RBC % INR (Anticoag Therapy) 1.70 H (0.77-1.02) APTT 39.1 H (26.0-36.3) seconds Sodium (135-145) mmol/L Potassium (3.5-5.0) mmol/L Chloride (101-111) mmol/L Carbon Dioxide (22-32) mmol/L Anion Gap (2-11) mmol/L BUN (6-24) mg/dL Creatinine (0.67-1.17) mg/dL Est GFR ( Amer) (>60) Est GFR (Non-Af Amer) (>60) BUN/Creatinine Ratio (8-20) Glucose (70-100) mg/dL Lactic Acid 0.6 (0.5-2.0) mmol/L Calcium (8.6-10.3) mg/dL Magnesium (1.9-2.7) mg/dL Total Bilirubin (0.2-1.0) mg/dL AST (13-39) U/L ALT (7-52) U/L Alkaline Phosphatase (34-104) U/L Total Creatine Kinase (10-223) U/L CK-MB (CK-2) (0.6-6.3) ng/mL Troponin I (<0.04) ng/mL B-Natriuretic Peptide 143 H (<=100) pg/mL Total Protein (6.4-8.9) g/dL Albumin (3.2-5.2) g/dL Globulin (2-4) g/dL Albumin/Globulin Ratio (1-3) TSH (0.34-5.60) mcIU/mL Urine Color Urine Appearance Urine pH (5-9) Ur Specific Russell (1.010-1.030) Urine Protein (Negative) Urine Ketones (Negative) Urine Blood (Negative) Urine Nitrate (Negative) Urine Bilirubin (Negative) Urine Urobilinogen (Negative) Ur Leukocyte Esterase (Negative) Urine WBC (Auto) (Absent) Urine RBC (Auto) (Absent) Ur Squamous Epith Cells (Absent) Urine Bacteria (Absent) Urine Glucose (Negative) Salicylates (<30) mg/dL Acetaminophen mcg/mL Serum Alcohol (<10) mg/dL Assessment/Plan - Billing Assessment: Pt is a 72 year old male with a H afib, HTN who presented to the ED from Dr. Moyer's office with intermittent chest pain and confusion. Hospitalist recommends admission for further workup, but patient wishes to leave AMA. Plan By Medical Problem: 1. Confusion: Etiology is unclear at this point and we recommend further workup. CT brain showed no acute abnormalities and pt did not demonstrate any focal defecits. The patient is afebrile without leukocytosis, and denies dysuria , cough, fever, SOB, and says he is in his usual state of health, so infectious etiology is unlikely. Patient could have some underlying dementia that has not been formally diagnosed. Pt's daughter told Dr. Garcia that she has also noticed he is a litte more forgetful lately. 2. Chest Pain: Pt describes at intermittent "twinges" that he has been getting occasionally for a long time. Says weeks go by between and that the episodes last seconds. Pt says he does a lot of exercise and weight lifting and does not feel chest pain or shortness of breath with these activities. Pt does have a history of afib on eliquis . Rates have been controlled in the ED. Trop negative x2 and EKG without acute ischemic changes, however would recommend additional trop trending and EKG as well as overnight tele monitoring to r/o ACS. 3. Abnormal UA: Pt was recently treated for a UTI with Macrobid, however urine culture did not grow any bacteria. Pt reports that his symptoms of dysuria and visible hematuria have resolved. UA today did have blood, WBC and +1 bacteria. Pt is afebrile without leukocytosis. Recommend outpatient urology follow up. 4. Suicidal Ideation: Pt reports that his earlier comment was a joke and that he does not want to harm himself and does not have a plan to do so. VTE PPX: Anticoagulated with warfarin Diet: Regular diet Code Status: Full Admission Status and Rationale: I recommend that the patient be admitted for further workup of his confusion and chest pain, however pt wishes to leave against medical advice. His reason for wanting to leave is that he wants to make sure he locked his door, and he wants to pick up man his medications at [facility] and get groceries at [facility]. Both Dr. Garcia and Ying discussed the risks of leaving the hospital AMA and the patient was able to verbalize understanding of the risks associated. He was also able to verbalize what he would do if he felt the return of symptoms. He said he would "pull the rip cord" where he lives to call for help and could call a cab if he needed to return to the hospital. We feel the patient has capacity to make this decision. Dr. Garcia spoke with the patient's daughter who will be checking in on the patient. Attending: Janeth Garcia
--- NOTE | 2018-05-05 16:45 | PN ---
Progress Note - Progress Note Date of Service: 05/05/18 Note: I was asked to see Mr Hernandes by Jesus Figueredo NP to discuss leaving the hospital AMA. The patient was sent for AMS from Dr. Moyer's office. Currently the patient is alert and oriented to self, situation and place. He does not know the month or year but states he does not pay attention to the date. He was oriented to Trump being president and the recent election results. He states he wants to go home to run errands and then go to a friends to watch TV and rest tonight. He understands that we want to observe him for the reported confusion. He is able to tell me that if he had any problems at home he could call a cab to be brought back to the ER or pull the "rip cord" in his apartment to get help. He allowed me to speak to his daughter to explain my concerns. She stated he has become more confused recently and will frequently repeat himself. She also states that she thinks he is frustrated about the fact he has been diagnosed with cancer and has yet to start treatment and has to keep going to Dr. dyson'jesus without any action happening. She is not surprised by the fact that he stated he wanted to kill himself and states that she does not think he meant it or would ever go through with it. At this point it is my impression that the patient has capacity to sign himself out against medical advice from the ER. I spoke with Dr. Sanchez and relayed my thoughts. A full consult is being typed up by Jesus Figueredo NP. The patient has been instructed to return to the ER for any concerning issues.
[2018-05-05 18:35] VITALS: BP 137/77
== END | disposition left against medical advice (07) ==
LOC: ED 11:17
DX: R41.0 Disorientation, unspecified (principal); N39.0 Urinary tract infection, site not specified; R07.9 Chest pain, unspecified; Z53.21 Procedure and treatment not carried out due to patient leaving prior to being seen by health care provider; Z87.891 Personal history of nicotine dependence; E11.9 Type 2 diabetes mellitus without complications; I48.91 Unspecified atrial fibrillation; Z79.01 Long term (current) use of anticoagulants; E78.00 Pure hypercholesterolemia, unspecified; I10 Essential (primary) hypertension; I73.9 Peripheral vascular disease, unspecified; G47.30 Sleep apnea, unspecified; C34.90 Malignant neoplasm of unspecified part of unspecified bronchus or lung; C79.51 Secondary malignant neoplasm of bone; Z82.49 Family history of ischemic heart disease and other diseases of the circulatory system; R45.851 Suicidal ideations
CPT/HCPCS: 36415; 70450; 71045; 80053; 80320; 80329; 81003; 81015; 82140; 82550; 82553; 83605; 83735; 83880; 84443; 84484; 85025; 85610; 85730; 87086; 93005; 96361; 96374; 99285; G0480; J0744

== ENCOUNTER 2018-10-26 11:11 | Inpatient (IN) | payer MEDICARE ==
[2018-10-26] MEDS ORDERED: Acetaminophen TAB* 325 MG PO ONE (11:30)
[2018-10-26] MEDS ORDERED: Diltiazem IV push/loading dose 5 MG/ML 5 ML vial (25 mg) IV SLOW PU ONE (11:33)
[2018-10-26] MEDS ORDERED: NS 0.9% 1000 ML** 1,000 ML IV.FLUID IV ONE (11:33)
[2018-10-26 12:00] LABS: ABS Lymphocytes 0.3 10^3/ul (1.0-4.8); ABS Neutrophils 13.2 10^3/ul (1.5-7.7); Hematocrit 37 % (42-52); Hemoglobin 12.4 g/dL (14.0-18.0); Lymphocyte % 2.1 %; Mean Corpuscular HGB Conc 34 g/dL (31-36); Mean Corpuscular Hemoglobin 30 pg (27-31); Mean Corpuscular Volume 90 fL (80-94); Mean Platelet Volume 7.6 fL (7.4-10.4); Platelet Count 204 10^3/uL (150-450); Red Blood Count 4.07 10^6 /uL (4.18-5.48); Red Cell Distribution Width 15 % (10.5-15); White Blood Count 14.5 10^3/uL (3.5-10.8)
[2018-10-26] MEDS ORDERED: Vancomycin(*) 1,250 MG in NS 0.9% 250 ML* 250 ML IVPB ONE (12:08)
[2018-10-26] MEDS ORDERED: Ciprofloxacin 400MG IVPREMIX(* 400 MG/200 ML BAG IVPB ONE (12:08)
[2018-10-26] MEDS ORDERED: metroNIDAZOLE IV 500 MG/100ML* 500 MG/100 ML BAG IVPB ONE (12:09)
[2018-10-26 12:25] LABS: Troponin I 0.01 ng/mL (<0.04)
[2018-10-26 12:27] LABS: Albumin 3.5 g/dL (3.2-5.2); Albumin/Globulin Ratio 1.6 (1-3); BUN/Creatinine Ratio 10.7 (8-20); C Reactive Protein 43.69 mg/L (<8.01); EGFR Non-African American 64.4 (>60); Globulin 2.2 g/dL (2-4); Potassium 3.3 mmol/L (3.5-5.0); Total Bilirubin 1.1 mg/dL (0.2-1.0); Total Protein 5.7 g/dL (6.4-8.9)
[2018-10-26 12:28] LABS: INR 2.46 (0.82-1.09)
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
[2018-10-26 14:02] LABS: Urine Appearance Clear; Urine Bacteria Absent (Absent); Urine Bilirubin Negative (Negative); Urine Blood Negative (Negative); Urine Color Yellow; Urine Glucose Negative (Negative); Urine Ketones Negative (Negative); Urine Nitrite Negative (Negative); Urine Protein Negative (Negative); Urine Red Blood Cell Trace(0-2/hpf) (Absent); Urine Specific Gravity 1.006 (1.010-1.030); Urine Squamous Epithelial Cell Present (Absent); Urine Urobilinogen Negative (Negative); Urine White Blood Cell 1+(6-10/hpf) (Absent)
[2018-10-26] MEDS ORDERED: Ondansetron INJ* 2 MG/ML VIAL IV PRN (14:08)
[2018-10-26] MEDS ORDERED: Acetaminophen TAB* 325 MG PO PRN (14:08)
[2018-10-26] MEDS ORDERED: Ibuprofen TAB* 400 MG PO PRN (14:27)
[2018-10-26] MEDS ORDERED: HYDROcodone/ACET. 7.5/325 LIQ* 15 ML UDC PO PRN (14:27)
[2018-10-26] MEDS ORDERED: Albuterol 2.5 MG/3 ML NEB.SOL* (0.083%) INH PRN (14:29)
[2018-10-26] MEDS ORDERED: Potassium Chloride LIQUID* 20 MEQ PACKET PO ONE (14:30)
[2018-10-26] MEDS ORDERED: Piperacillin/Tazobac ADVAN(*) 3.375 GM in NS 0.9% 100 ML* 100 ML IVPB ONE (14:41)
[2018-10-26] MEDS ORDERED: Dextrose 50% Syringe 50 ML* 25 GM/50 ML SYRINGE IV PUSH PRN (14:46)
[2018-10-26] MEDS ORDERED: Zosyn per Pharmacy* NOTE FOLLOW UP SCH (15:00)
[2018-10-26] MEDS ORDERED: Vancomycin per Pharmacy* NOTE FOLLOW UP PRN (15:49)
[2018-10-26] MEDS ORDERED: Warfarin TAB(*) 2 MG PO SCH (17:00)
[2018-10-26] MEDS: Diltiazem CD CAP* 120 MG PO SCH (17:40)
[2018-10-26] MEDS: Lactated Ringers 1000 ML Bag* 1,000 ML IV SCH (17:41)
[2018-10-26] MEDS: Insulin LISPRO* 1 UNITS UNIT SUBCUT SCH ×2 (17:42→21:34)
--- NOTE | 2018-10-26 17:46 | HP ---
CC: Dr. Montserrat Farooq * ADMISSION HISTORY AND PHYSICAL: DATE OF ADMISSION: 10/26/18 PRIMARY CARE PROVIDER: Dr. Montserrat Farooq. MY ATTENDING WHILE IN THE HOSPITAL: Dr. Haven Tay.* (DICTATED BY GERMAN RAI) CHIEF COMPLAINT: Redness of right lower extremity wound. HISTORY OF PRESENT ILLNESS: Mr. 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 The patient underwent radiation therapy particularly on his right hip and one treatment on his lungs and then underwent recently on 10/19/18, a radical resection of the sarcoma of his right lower extremity. The patient, at that point, had a TYLER drain inserted. The patient lives at [facility], was discharged, and has been feeling well. Since then, the patient states he has not been eating very well, but attributes this to not having enough money for food. The patient denies any pain in his leg. No fevers or chills. No chest pain or shortness of breath. No palpitations. No nausea or vomiting. No abdominal pain or diarrhea. No blood in his stools. The patient has not yet followed up with his surgeon after his surgery. The patient not had any recent radiation treatments. The patient denies any dizziness from standing or passing out. The patient has no focal weakness. No other issues. The patient feels that overall he has been losing lot of muscle mass and strength. The patient states he has been taking all his medications, but cannot remember what his medications are besides warfarin and oxycodone. The patient does not think he is undergoing any treatment for his non-small cell lung cancer at this time. In the emergency department, the patient came in and was found to be having elevated temperature of 101.7, tachycardic with a high of 150, which responded well to Cardizem and to be borderline hypotensive which responded to fluids. The patient was given 30 mL/kg and antibiotics including vancomycin, ciprofloxacin, and Flagyl. The patient's right hip was found to be inflamed along the surgical incision with the worst of inflammation with purulent discharge around the TYLER drain. The patient has knocked off the TYLER bulb on his TYLER drain, he states, last night. Due to concern for wound infection of right lower extremity, we are asked to evaluate the patient for admission to the hospital. PAST MEDICAL HISTORY: Hypertension; AFib; hyperlipidemia; GERD; anxiety; diabetes mellitus; obstructive sleep apnea, on no treatment; sarcoma of right lower extremity; non-small cell lung cancer; long QT syndrome. PAST SURGICAL HISTORY: Radical resection of right lower extremity sarcoma with TYLER drain placement in late September. MEDICATIONS: Per pharmacy: 1. Diazepam 5 mg p.o. 5 times daily. 2. Ibuprofen 400 mg p.o. 3 times daily. 3. Warfarin 2 mg on and Sundays. 4. Warfarin 1 mg on Tuesday, Tuesday, Tuesday, Tuesday, and Tuesday. 5. Diltiazem ER 120 mg p.o. daily. 6. Oxycodone 5/325 one tab 5 times daily as needed. 7. Albuterol inhaler q.4 hours as needed. The patient was prescribed finasteride and pravastatin, but has not picked these up recently. ALLERGIES: CEPHALEXIN and NABUMETONE. FAMILY HISTORY: The patient's father of alcoholism. The patient has a mother, half brother, half sister, and 3 nieces, all of whom have suffered from or from various cancers that he is unable to elucidate on. SOCIAL HISTORY: The patient smoked for 20 years, quitting approximately 30 years ago. The patient denies drinking recently, but does have a history of alcohol abuse. The patient denies illicit drug use. The patient is a retired, but used to work at [employer] and various other jobs. The patient is . The patient has 1 daughter, Grecia Hernandes, who will be his surrogate decision maker. REVIEW OF SYSTEMS: A 14-point review of systems were reviewed with the patient , is negative except other than above in the HPI. PHYSICAL EXAMINATION GENERAL: The patient is a 73-year-old male, who appears older than stated age and is sitting comfortably in the bed, in no acute distress. VITAL SIGNS: At the time of evaluation, temperature 101.7, pulse rate 90, respiratory rate 20, oxygen saturation 96% on room air, blood pressure 96/57. HEENT: Head: Normocephalic, atraumatic. Sclerae anicteric. No conjunctival injection. Nasal mucosa moist. Oral mucosa moist. No pharyngeal erythema, discharge, or exudate. NECK: Supple, nontender. No lymphadenopathy. No carotid bruits auscultated. No JVD. RESPIRATORY: Clear to auscultation bilaterally. No wheezes, rales, or rhonchi. Good air exchange bilaterally. CARDIAC: Tachycardic. Irregularly irregular rhythm. No clicks, murmurs, gallops, or rubs. Pulses 2+ in the bilateral dorsalis pedis, posterior tibial, and radial areas. ABDOMEN: Soft, nontender, nondistended. Bowel sounds present. Normoactive in all 4 quadrants. No hepatosplenomegaly. No abdominal bruits auscultated. No hepatojugular reflux. GENITOURINARY: No suprapubic or CVA tenderness. NEURO: Cranial nerves II through XII intact. No focal deficits. Alert and oriented x3. PSYCHIATRIC: Pleasant and cooperative. SKIN: Large surgical incision in the right lower extremity with erythema extending up from the incision down its entire length, severe erythema, and discharge around TYLER drain in the posterior portion of the thigh with scant amount of purulent drainage. No other rash. DIAGNOSTIC STUDIES/LAB DATA: White blood cell count 14.5, hemoglobin 12.4, platelet count 204. INR 2.46, aPTT 34.0. Sodium 137, potassium 3.3, chloride 102, carbon dioxide 29, anion gap 7, BUN 12, creatinine 1.12, glucose 136, lactic acid 1.2, calcium 9.0. Bilirubin 1.1, AST 18, ALT 12, alkaline phosphatase 69. Troponin I 0.01. CRP 43.69. Protein 5.7, albumin 3.5, globulin 2.2. Studies: Electrocardiogram shows atrial fibrillation, rate of 153, QTc of 489, normal axis, no ST-segment elevation or depression, normal R-wave progression. No other hypertrophy or enlargement, intermittent PVCs compared to previous exam. Rate is faster, but there were no significant changes. Chest x-ray read as, there is a left lower lobe infiltrate in the region of the previous known cavitary mass. ASSESSMENT AND PLAN: Impression: Mr. Hernandes is a 73-year-old male with past medical history significant for hypertension, atrial fibrillation, recent diagnosis of right lower extremity sarcoma, and non-small cell lung cancer, who presents to the emergency department with worsening redness and swelling in his right lower extremity at the site of surgical incision, recently underwent radical excision of his right lower extremity sarcoma and appears currently septic with appearance of a wound infection in his right lower extremity. The patient was admitted to the hospital for further evaluation as well as IV antibiotics. 1. Right lower extremity wound infection. The patient has erythema extending out of his right lower extremity wound, worst at the site of the TYLER drain. The patient's wound swab was positive for methicillin-resistant Staphylococcus aureus. The patient received vancomycin, ciprofloxacin, and Flagyl while in the emergency department. The patient will be switched to vancomycin and Zosyn due to his CEPHALOSPORIN allergy. We will monitor the patient's renal function closely on this combination. We will get an MRI of the patient's hip to assess for abscess and presence of possible further infection into the tissues. 2. Sepsis. The patient meets criteria for sepsis with an unclear source at this time. The patient has received his normal saline bolus and this will be continued, lactated Ringer's 100 mL an hour. The patient has been given the above antibiotics and will continue on vancomycin and Zosyn. The patient had blood cultures drawn. The patient has repeat lactic acid pending. The patient met criteria for severe sepsis. The patient is currently hemodynamically stable and does not need vasopressor agents. 3. Atrial fibrillation. The patient was in rapid atrial fibrillation when he came in likely related to his infection. The patient has been given fluids as above and will be continued on his diltiazem. It is unclear whether he has been taking this at home; this may be increased and other medications added; however, given the patient's low blood pressure, we will avoid other rate- controlling agents at this time. The patient received 20 mg IV of diltiazem while in the emergency department. 4. Hypertension. The patient is borderline hypotensive as above. Continue the patient's diltiazem. 5. Non-small cell cancer with infiltrate. The patient has possible postobstructive pneumonia of his chest given infiltrate and sepsis, though given the patient's lack of respiratory symptoms, will treat with vancomycin and Zosyn at this time and consider a CT scan of the chest if the patient has further worsening in his respiratory status. 6. Diabetes mellitus, type 2. We will treat with sliding scale insulin in the hospital. The patient is on no medications at home. 7. Obstructive sleep apnea. The patient refused any treatment for this. 8. FEN. The patient will have a heart-healthy diet without caffeine. Fluids as above. 9. DVT prophylaxis. The patient is therapeutic on Coumadin. 10. Long QT syndrome. The patient's QT is not currently prolonged. 11. Disposition. The patient will be inpatient. Estimated length of stay greater than 2 midnights. TIME SPENT: Approximately 75 minutes was spent on the admission of this patient , 30 of which was spent [id number] with the patient obtaining history and physical and discussing treatment plan. This plan has been discussed with my attending, Dr. Haven Tay, and she is in agreement. GERMAN RAI [id number]/[facility] #: [id number] MARCUS
[2018-10-26] MEDS ORDERED: Potassium Chloride LIQUID 20 MEQ/15 ML PO ONE (18:00)
[2018-10-26] MEDS ORDERED: Diazepam TAB(*) 5 MG PO SCH (18:00)
[2018-10-26] MEDS: Diazepam TAB(*) 5 MG PO SCH (21:42)
[2018-10-26] MEDS: Vancomycin(*) 1,000 MG in NS 0.9% 250 ML* 250 ML IVPB SCH (23:11)
[2018-10-27] MEDS: ZOSYN 3.375 GM Q8H per EXTENDED INFUSION IVPB SCH ×6 (02:08→17:01)
[2018-10-27] MEDS: Diazepam TAB(*) 5 MG PO SCH ×4 (03:06→21:02)
[2018-10-27 06:12] LABS: ABS Eosinophils 0.1 10^3/ul (0-0.6); ABS Lymphocytes 0.9 10^3/ul (1.0-4.8); ABS Monocytes 0.9 10^3/ul (0-0.8); ABS Neutrophils 9.3 10^3/ul (1.5-7.7); Eosinophil % 1.2 %; Hematocrit 35 % (42-52); Hemoglobin 11.4 g/dL (14.0-18.0); Lymphocyte % 7.7 %; Mean Corpuscular HGB Conc 33 g/dL (31-36); Mean Corpuscular Hemoglobin 30 pg (27-31); Mean Corpuscular Volume 92 fL (80-94); Mean Platelet Volume 8.1 fL (7.4-10.4); Platelet Count 184 10^3/uL (150-450); Red Blood Count 3.78 10^6 /uL (4.18-5.48); Red Cell Distribution Width 15 % (10.5-15); White Blood Count 11.2 10^3/uL (3.5-10.8)
[2018-10-27 06:28] LABS: BUN/Creatinine Ratio 13.1 (8-20); Calcium 8.5 mg/dL (8.6-10.3); EGFR African American 108.7 (>60); EGFR Non-African American 89.8 (>60); Magnesium 1.7 mg/dL (1.9-2.7); Potassium 4.1 mmol/L (3.5-5.0)
[2018-10-27 06:31] LABS: INR 2.23 (0.82-1.09)
[2018-10-27] MEDS: Vancomycin(*) 1,000 MG in NS 0.9% 250 ML* 250 ML IVPB SCH ×3 (06:48→22:49)
[2018-10-27] MEDS: Insulin LISPRO* 1 UNITS UNIT SUBCUT SCH ×3 (07:33→16:55)
[2018-10-27] MEDS: Pantoprazole TAB * 40 MG TAB PO SCH (08:11)
[2018-10-27] MEDS: Diltiazem CD CAP* 120 MG PO SCH (08:12)
[2018-10-27] MEDS ORDERED: Magnesium Sulfate 2 GM IV* 2 GM/50 ML BAG IVPB ONE (08:16)
[2018-10-27] MEDS: Lactated Ringers 1000 ML Bag* 1,000 ML IV SCH (10:32)
[2018-10-27] MEDS ORDERED: Vancomycin Trough Check NOTE FOLLOW UP ONE (14:30)
--- NOTE | 2018-10-27 14:57 | PN ---
Subjective Date of Service: 10/27/18 Interval History: VS: intermittent low grade tachy Labs: WBC trending down; H/H low; low Mag Pt states that he wants to leave. States his leg feels fine, and he can walk fine. At this point, I do no believe that he has capacity. 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 When told that he needed to stay, he seems to accept this. Objective Active Medications: Acetaminophen (Tylenol Tab*) 650 mg PO Q6H PRN Hydrocodone Bitart/Acetaminophen (Nortab 7.5/325 Liq*) 1 ml PO Q6H PRN Albuterol (Ventolin 2.5 Mg/3 Ml Neb.Sunni*) 2.5 mg INH Q6H PRN Dextrose (D50w Syringe 50 Ml*) 12.5 gm IV PUSH .FOR FS < 60 - SS PRN Diazepam (Valium Tab(*)) 5 mg PO 0300,0900,1500,2100 [facility] Diltiazem HCl (Cardizem Cd Cap*) 120 mg PO QAM [facility] Vancomycin HCl 1,000 mg/ (Sodium Chloride) 250 mls @ 166.667 mls/hr IVPB Q8H [facility]; Protocol Lactated Ringer's (Lactated Ringers 1000 Ml Bag*) 1,000 mls @ 100 mls/hr IV PER RATE [facility] Piperacillin Sod/Tazobactam (Sod 3.375 gm/ Sodium Chloride) 100 mls @ 25 mls/ hr IVPB Q8H [facility] Ibuprofen (Motrin Tab*) 400 mg PO TID PRN Insulin Human Lispro (Humalog*) 0 units SUBCUT ACHS [facility]; Protocol Ondansetron HCl (Zofran Inj*) 4 mg IV Q6H PRN Pantoprazole Sodium (Protonix Tab*) 40 mg PO DAILY [facility]; Protocol Pharmacy Consult (Zosyn Per Pharmacy*) 1 note FOLLOW UP .ZOSYN PER PHARMACY [facility] Pharmacy Consult (Vancomycin Per Pharmacy*) 1 note FOLLOW UP . PRN Warfarin Sodium (Coumadin Tab(*)) 1 mg PO MoTuWeFrSa@1700 [facility]; Protocol Warfarin Sodium (Coumadin Tab(*)) 2 mg PO SuTh@1700 [facility]; Protocol Vital Signs: Temp Pulse Resp BP Pulse Ox 98.5 F 88 19 104/55 100 10/27/18 15:45 10/27/18 15:45 10/27/18 16:55 10/27/18 15:45 10/27/18 15:45 Oxygen Devices in Use Now: None Appearance: Pt is ill-appearing older male who is sitting at edge of bed. He is somewhat disheveled, but responds appropriate to questions and is cooperative. He has lower lip tremor, which he states is chronic. Eyes: No Scleral Icterus, PERRLA Ears/Nose/Mouth/Throat: NL Teeth, Lips, Gums, Clear Oropharnyx, Mucous Membranes Moist Neck: NL Appearance and Movements; NL JVP, Trachea Midline Respiratory: Symmetrical Chest Expansion and Respiratory Effort, Clear to Auscultation Cardiovascular: NL Sounds; No Murmurs; No JVD, RRR, No Edema Abdominal: NL Sounds; No Tenderness; No Distention, No Hepatosplenomegaly Extremities: No Edema, No Clubbing, Cyanosis, - - R lat thigh with incision that is closed and somewhat erythematous, without drainage. Other incision site with surrounding erythema and small amount of purulent d/c around edge of drain. Drain inserted and draining yellow-brown fluid; 200 cc reported. Neurological: - - Alert. Oriented to self, place. Result Diagrams: 10/27/18 05:10 10/27/18 05:10 Additional Lab and Data: Lab Results 10/26/18 10/26/18 10/26/18 Range/Units 11:48 11:48 11:48 WBC 14.5 H (3.5-10.8) 10^3/uL RBC 4.07 L (4.18-5.48) 10^6 /uL Hgb 12.4 L (14.0-18.0) g/dL Hct 37 L (42-52) % MCV 90 (80-94) fL MCH 30 (27-31) pg MCHC 34 (31-36) g/dL RDW 15 (10.5-15) % Plt Count 204 (150-450) 10^3/uL MPV 7.6 (7.4-10.4) fL Neut % (Auto) 90.7 % Lymph % (Auto) 2.1 % [place] % (Auto) 7.0 % Eos % (Auto) 0.0 % Baso % (Auto) 0.2 % Absolute Neuts (auto) 13.2 H (1.5-7.7) 10^3/ul Absolute Lymphs (auto) 0.3 L (1.0-4.8) 10^3/ul Absolute Monos (auto) 1.0 H (0-0.8) 10^3/ul Absolute Eos (auto) 0.0 (0-0.6) 10^3/ul Absolute Basos (auto) 0.0 (0-0.2) 10^3/ul Absolute Nucleated RBC 0.0 10^3/ul Nucleated RBC % 0.0 INR (Anticoag Therapy) 2.46 H (0.82-1.09) APTT 34.0 (26.0-36.3) seconds Sodium 137 (135-145) mmol/L Potassium 3.3 L (3.5-5.0) mmol/L Chloride 102 (101-111) mmol/L Carbon Dioxide 28 (22-32) mmol/L Anion Gap 7 (2-11) mmol/L BUN 12 (6-24) mg/dL Creatinine 1.12 (0.67-1.17) mg/dL Est GFR ( Amer) 78.0 (>60) Est GFR (Non-Af Amer) 64.4 (>60) BUN/Creatinine Ratio 10.7 (8-20) Glucose 136 H (70-100) mg/dL Lactic Acid (0.5-2.0) mmol/L Calcium 9.0 (8.6-10.3) mg/dL Total Bilirubin 1.10 H (0.2-1.0) mg/dL AST 18 (13-39) U/L ALT 12 (7-52) U/L Alkaline Phosphatase 69 (34-104) U/L Troponin I 0.01 (<0.04) ng/mL C-Reactive Protein 43.69 H (<8.01) mg/L Total Protein 5.7 L (6.4-8.9) g/dL Albumin 3.5 (3.2-5.2) g/dL Globulin 2.2 (2-4) g/dL Albumin/Globulin Ratio 1.6 (1-3) 10/26/18 Range/Units 11:48 WBC (3.5-10.8) 10^3/uL RBC (4.18-5.48) 10^6 /uL Hgb (14.0-18.0) g/dL Hct (42-52) % MCV (80-94) fL MCH (27-31) pg MCHC (31-36) g/dL RDW (10.5-15) % Plt Count (150-450) 10^3/uL MPV (7.4-10.4) fL Neut % (Auto) % Lymph % (Auto) % [place] % (Auto) % Eos % (Auto) % Baso % (Auto) % Absolute Neuts (auto) (1.5-7.7) 10^3/ul Absolute Lymphs (auto) (1.0-4.8) 10^3/ul Absolute Monos (auto) (0-0.8) 10^3/ul Absolute Eos (auto) (0-0.6) 10^3/ul Absolute Basos (auto) (0-0.2) 10^3/ul Absolute Nucleated RBC 10^3/ul Nucleated RBC % INR (Anticoag Therapy) (0.82-1.09) APTT (26.0-36.3) seconds Sodium (135-145) mmol/L Potassium (3.5-5.0) mmol/L Chloride (101-111) mmol/L Carbon Dioxide (22-32) mmol/L Anion Gap (2-11) mmol/L BUN (6-24) mg/dL Creatinine (0.67-1.17) mg/dL Est GFR ( Amer) (>60) Est GFR (Non-Af Amer) (>60) BUN/Creatinine Ratio (8-20) Glucose (70-100) mg/dL Lactic Acid 1.2 (0.5-2.0) mmol/L Calcium (8.6-10.3) mg/dL Total Bilirubin (0.2-1.0) mg/dL AST (13-39) U/L ALT (7-52) U/L Alkaline Phosphatase (34-104) U/L Troponin I (<0.04) ng/mL C-Reactive Protein (<8.01) mg/L Total Protein (6.4-8.9) g/dL Albumin (3.2-5.2) g/dL Globulin (2-4) g/dL Albumin/Globulin Ratio (1-3) Microbiology and Other Data: Microbiology 10/26/18 11:50 Skin and Soft Tissue MRSA/MSSA (PCR - Final Hip Right Mrsa Positive S.aureus Positive Gram Stain - Final Wound Culture - Preliminary Staphylococcus Aureus 10/26/18 13:52 Urine Culture - Final Urine 10/26/18 11:48 Aerobic Blood Culture - Preliminary Blood Venous No Growth Day 1 Anaerobic Blood Culture - Preliminary No Growth Day 1 10/26/18 11:33 Aerobic Blood Culture - Preliminary Blood Venous No Growth Day 1 Anaerobic Blood Culture - Preliminary No Growth Day 1 Assess/Plan/Problems-Billing Assessment: 73 yom PMHx HTN, AF, HLD, GERD, DM, anxiety, DOLORES, Sarcoma RLE with resection , NSCLC, long QT syndrome who presents with 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 - Patient Problems (1) Infection of wound due to methicillin resistant Staphylococcus aureus (MRSA) Comment: -R thigh wound growing MRSA -Continue vanco -Discontinue zosyn (2) Sepsis Comment: -Resolved -Elevated WBC, source of infection is R thigh wound (3) Confusion Comment: -Unsure of baseline mentation, but patient disoriented to time. ? due to infection or baseline -Will attempt to reach family members in a.m. (4) Afib Comment: -AF, rate controlled -Continue diltiazem (5) HTN (hypertension) Comment: -Continue home medications (6) DVT prophylaxis Comment: -Pt on warfarin, therapeutic Status and Disposition: Inpatient. Discharge when stable.
[2018-10-27] MEDS: Warfarin TAB(*) 1 MG PO SCH (16:52)
[2018-10-27] MEDS ORDERED: NS 0.9% 1000 ML** 1,000 ML IV ONE (21:39)
[2018-10-28] MEDS: ZOSYN 3.375 GM Q8H per EXTENDED INFUSION IVPB SCH ×2 (01:31)
[2018-10-28] MEDS: Diazepam TAB(*) 5 MG PO SCH ×3 (03:24→15:29)
[2018-10-28 07:05] LABS: ABS Eosinophils 0.2 10^3/ul (0-0.6); ABS Lymphocytes 0.7 10^3/ul (1.0-4.8); ABS Monocytes 0.5 10^3/ul (0-0.8); ABS Neutrophils 6.7 10^3/ul (1.5-7.7); Eosinophil % 2.4 %; Hematocrit 35 % (42-52); Hemoglobin 11.8 g/dL (14.0-18.0); Lymphocyte % 8.8 %; Mean Corpuscular HGB Conc 34 g/dL (31-36); Mean Corpuscular Hemoglobin 31 pg (27-31); Mean Corpuscular Volume 90 fL (80-94); Nucleated Red Blood Cells % 0.1; Platelet Count 187 10^3/uL (150-450); Red Blood Count 3.85 10^6 /uL (4.18-5.48); Red Cell Distribution Width 15 % (10.5-15); White Blood Count 8.2 10^3/uL (3.5-10.8)
[2018-10-28 07:12] LABS: INR 1.55 (0.82-1.09)
[2018-10-28] MEDS: Vancomycin(*) 1,000 MG in NS 0.9% 250 ML* 250 ML IVPB SCH ×2 (07:20→15:30)
[2018-10-28 07:21] LABS: EGFR African American 111.7 (>60); EGFR Non-African American 92.4 (>60)
[2018-10-28] MEDS: Diltiazem CD CAP* 120 MG PO SCH (09:16)
[2018-10-28] MEDS: Pantoprazole TAB * 40 MG TAB PO SCH (09:16)
[2018-10-28 12:15] VITALS: BP 125/79
--- NOTE | 2018-10-28 15:00 | PN ---
Subjective Date of Service: 10/28/18 Interval History: VS: Occasional tachycardia Labs: Anemia- trending up; WBC WNL Pt is confused and disoriented today. He has no complaints, but is confusing staff members for friends who he has known for years. He appears to be acutely confused and disoriented. Today, he states that he drinks approximately 1/2-2/ 3 vodka a day, but does not give a unit. He states he drinks approximately 5 days per week. Yesterday, he denies alcohol use for years. Unclear which is the case. Talked with granddaughter, Zayra, who states that she and mother have difficult relationship with Mr. Fletcher, but state that he does display some level of confusion and short term memory loss at baseline, such as difficulty with dates, repetitive questions. She states that he has not drank alcohol for over 30 years, and is fairly certain that he has not started drinking again. Objective Active Medications: Acetaminophen (Tylenol Tab*) 650 mg PO Q6H PRN Hydrocodone Bitart/Acetaminophen (Nortab 7.5/325 Liq*) 1 ml PO Q6H PRN Albuterol (Ventolin 2.5 Mg/3 Ml Neb.Sunni*) 2.5 mg INH Q6H PRN Diazepam (Valium Tab(*)) 5 mg PO 0300,0900,1500,2100 [facility] Diltiazem HCl (Cardizem Cd Cap*) 120 mg PO QAM [facility] Vancomycin HCl 1,000 mg/ (Sodium Chloride) 250 mls @ 166.667 mls/hr IVPB Q8H [facility]; Protocol Ibuprofen (Motrin Tab*) 400 mg PO TID PRN Ondansetron HCl (Zofran Inj*) 4 mg IV Q6H PRN Pantoprazole Sodium (Protonix Tab*) 40 mg PO DAILY [facility]; Protocol Pharmacy Consult (Vancomycin Per Pharmacy*) 1 note FOLLOW UP . PRN Pharmacy Profile Note (Vancomycin Trough Check) 1 note FOLLOW UP 0630 [facility] Warfarin Sodium (Coumadin Tab(*)) 1 mg PO MoTuWeFrSa@1700 [facility]; Protocol Warfarin Sodium (Coumadin Tab(*)) 2 mg PO SuTh@1700 [facility]; Protocol Vital Signs: Temp Pulse Resp BP Pulse Ox 97.9 F 88 16 125/79 100 10/28/18 12:04 10/28/18 12:04 10/28/18 12:04 10/28/18 12:04 10/28/18 12:04 Oxygen Devices in Use Now: None Appearance: Pt is sitting in chair. He appears somewhat dissheveled. He is talkative, but disoriented and confused. He is non-tremulous and does not appear acutely ill. Eyes: No Scleral Icterus, PERRLA Ears/Nose/Mouth/Throat: NL Teeth, Lips, Gums, Clear Oropharnyx - edentulous, Mucous Membranes Moist Neck: NL Appearance and Movements; NL JVP, Trachea Midline Respiratory: Symmetrical Chest Expansion and Respiratory Effort, Clear to Auscultation Cardiovascular: NL Sounds; No Murmurs; No JVD, No Edema - Tachycardic Abdominal: NL Sounds; No Tenderness; No Distention, No Hepatosplenomegaly Extremities: No Edema, No Clubbing, Cyanosis Neurological: - - Alert. Oriented to self only. Talkative, but confused and disoriented. Result Diagrams: 10/28/18 06:46 10/28/18 06:46 Additional Lab and Data: Lab Results 10/26/18 10/26/18 10/26/18 Range/Units 11:48 11:48 11:48 WBC 14.5 H (3.5-10.8) 10^3/uL RBC 4.07 L (4.18-5.48) 10^6 /uL Hgb 12.4 L (14.0-18.0) g/dL Hct 37 L (42-52) % MCV 90 (80-94) fL MCH 30 (27-31) pg MCHC 34 (31-36) g/dL RDW 15 (10.5-15) % Plt Count 204 (150-450) 10^3/uL MPV 7.6 (7.4-10.4) fL Neut % (Auto) 90.7 % Lymph % (Auto) 2.1 % [place] % (Auto) 7.0 % Eos % (Auto) 0.0 % Baso % (Auto) 0.2 % Absolute Neuts (auto) 13.2 H (1.5-7.7) 10^3/ul Absolute Lymphs (auto) 0.3 L (1.0-4.8) 10^3/ul Absolute Monos (auto) 1.0 H (0-0.8) 10^3/ul Absolute Eos (auto) 0.0 (0-0.6) 10^3/ul Absolute Basos (auto) 0.0 (0-0.2) 10^3/ul Absolute Nucleated RBC 0.0 10^3/ul Nucleated RBC % 0.0 INR (Anticoag Therapy) 2.46 H (0.82-1.09) APTT 34.0 (26.0-36.3) seconds Sodium 137 (135-145) mmol/L Potassium 3.3 L (3.5-5.0) mmol/L Chloride 102 (101-111) mmol/L Carbon Dioxide 28 (22-32) mmol/L Anion Gap 7 (2-11) mmol/L BUN 12 (6-24) mg/dL Creatinine 1.12 (0.67-1.17) mg/dL Est GFR ( Amer) 78.0 (>60) Est GFR (Non-Af Amer) 64.4 (>60) BUN/Creatinine Ratio 10.7 (8-20) Glucose 136 H (70-100) mg/dL Lactic Acid (0.5-2.0) mmol/L Calcium 9.0 (8.6-10.3) mg/dL Total Bilirubin 1.10 H (0.2-1.0) mg/dL AST 18 (13-39) U/L ALT 12 (7-52) U/L Alkaline Phosphatase 69 (34-104) U/L Troponin I 0.01 (<0.04) ng/mL C-Reactive Protein 43.69 H (<8.01) mg/L Total Protein 5.7 L (6.4-8.9) g/dL Albumin 3.5 (3.2-5.2) g/dL Globulin 2.2 (2-4) g/dL Albumin/Globulin Ratio 1.6 (1-3) 10/26/18 Range/Units 11:48 WBC (3.5-10.8) 10^3/uL RBC (4.18-5.48) 10^6 /uL Hgb (14.0-18.0) g/dL Hct (42-52) % MCV (80-94) fL MCH (27-31) pg MCHC (31-36) g/dL RDW (10.5-15) % Plt Count (150-450) 10^3/uL MPV (7.4-10.4) fL Neut % (Auto) % Lymph % (Auto) % [place] % (Auto) % Eos % (Auto) % Baso % (Auto) % Absolute Neuts (auto) (1.5-7.7) 10^3/ul Absolute Lymphs (auto) (1.0-4.8) 10^3/ul Absolute Monos (auto) (0-0.8) 10^3/ul Absolute Eos (auto) (0-0.6) 10^3/ul Absolute Basos (auto) (0-0.2) 10^3/ul Absolute Nucleated RBC 10^3/ul Nucleated RBC % INR (Anticoag Therapy) (0.82-1.09) APTT (26.0-36.3) seconds Sodium (135-145) mmol/L Potassium (3.5-5.0) mmol/L Chloride (101-111) mmol/L Carbon Dioxide (22-32) mmol/L Anion Gap (2-11) mmol/L BUN (6-24) mg/dL Creatinine (0.67-1.17) mg/dL Est GFR ( Amer) (>60) Est GFR (Non-Af Amer) (>60) BUN/Creatinine Ratio (8-20) Glucose (70-100) mg/dL Lactic Acid 1.2 (0.5-2.0) mmol/L Calcium (8.6-10.3) mg/dL Total Bilirubin (0.2-1.0) mg/dL AST (13-39) U/L ALT (7-52) U/L Alkaline Phosphatase (34-104) U/L Troponin I (<0.04) ng/mL C-Reactive Protein (<8.01) mg/L Total Protein (6.4-8.9) g/dL Albumin (3.2-5.2) g/dL Globulin (2-4) g/dL Albumin/Globulin Ratio (1-3) Microbiology and Other Data: Microbiology 10/26/18 11:50 Skin and Soft Tissue MRSA/MSSA (PCR - Final Hip Right Mrsa Positive S.aureus Positive Gram Stain - Final Wound Culture - Preliminary Staphylococcus Aureus 10/26/18 13:52 Urine Culture - Final Urine 10/26/18 11:48 Aerobic Blood Culture - Preliminary Blood Venous No Growth Day 1 Anaerobic Blood Culture - Preliminary No Growth Day 1 10/26/18 11:33 Aerobic Blood Culture - Preliminary Blood Venous No Growth Day 1 Anaerobic Blood Culture - Preliminary No Growth Day 1 Assess/Plan/Problems-Billing Assessment: 73 yom PMHx HTN, AF, HLD, GERD, DM, anxiety, DOLORES, Sarcoma RLE with resection , NSCLC, long QT syndrome who presents with 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 - Patient Problems (1) Infection of wound due to methicillin resistant Staphylococcus aureus (MRSA) Comment: -R thigh wound growing MRSA; BC negative day 2 -Hip MRI concerning for myositis and soft tissue abscess; negative for osteomyelitis; ortho consulted -Call in to Dr. Black, covering for Dr. Funes, at [place] -Culture sensitive to vanco -Continue vanco -Zosyn discontinued (2) Confusion Comment: -Unsure of baseline mentation, but patient disoriented to time. Patient appears more confused today; this appears acute. -DDx: EtOH withdrawal, infection, mets to brain from NSCLC -MVT, folic acid, thiamine ordered. Pt on diazepam 5 qid. -Low threshold for brain imaging -Will attempt to reach family members in a.m. (3) Afib Comment: -AF, rate controlled -Continue diltiazem, coumadin (4) HTN (hypertension) Comment: -Controlled -Continue home medications (5) Sepsis Comment: -Resolved -Elevated WBC, source of infection is R thigh wound (6) DVT prophylaxis Comment: -Pt on warfarin, therapeutic Status and Disposition: Inpatient. Discharge when stable.
[2018-10-28] MEDS ORDERED: Folic Acid TAB* 1 MG PO SCH (16:00)
[2018-10-28] MEDS ORDERED: Multivitamins/Minerals TAB PO SCH (16:00)
[2018-10-28] MEDS ORDERED: Thiamine TAB* 100 MG TAB PO SCH (16:00)
--- NOTE | 2018-10-28 17:02 | CONSULT ---
Consult Consult: Orthopedic Surgery Consultation Date: 10/28/18 Requesting Service: Medicine Chief Complaint: Right thigh pain and infection. History: 73yoM with Afib, DM, DOLORES, Non small cell lung cancer, and right thigh sarcoma. On 10/19/18, in [place], he underwent a radical resection of his right thigh sarcoma. He presented to the hospital 2 days ago, with fevers, thigh pain, and purulence at the drain site. He was admitted to the medical service and started on antibiotics. MRI did reveal an abscess at the surgical site. Orthopedics was consulted today. The patient is a poor historian, and does not give a clear history of when the symptoms started. Review of Systems: Negative for fever, recent visual changes, difficulty swallowing, chest pain, shortness of breath, abdominal pain, hematuria, easy bruising, diffuse weakness or lack of coordination, and diffuse rash. 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 History of alcohol abuse, although denies recent alcohol. Denies illicit drug use. FH: Alcoholism. Physical Examination: Constitutional: Temp Pulse Resp BP Pulse Ox 97.9 F 88 20 125/79 100 10/28/18 12:04 10/28/18 12:04 10/28/18 15:29 10/28/18 12:04 10/28/18 12:04 Non-septic appearing and in no acute distress. Cardiovascular: Pulse examination demonstrates positive pedal pulses with brisk capillary refill. There are no varicosities. Abdomen: Soft and nontender Lymphatic: No lymphadenopathy appreciated. Skin: Bilateral upper and lower extremity examination demonstrates no ulcerative lesions. Psychiatric / Neurological: Appropriate affect. Alert and oriented to person, place. There is no significant abnormality in coordination appreciated. Normoreflexive deep tendon reflex of the affected extremity. Musculoskeletal: Bilateral upper extremities and contralateral lower extremity show full range of motion with no evidence of instability and no tenderness with palpation and 5 /5 strength. There is no gross deformity. He has a longitudinal incision anteriorly at the proximal thigh. No drainage incision or erythema. Lateral to the incision on the lateral thigh, there is a TYLER drain with purulent drainage, both in the TYLER drain as well as around the TYLER drain. There is some mild erythema around the TYLER drain site. No other erythema about the thigh. 5/5 motor strength distally with intact sensation to light touch There is no global swelling, edema, or varicosities. Palpable DP pulse. Painless right hip, knee, ankle range of motion. Imaging: MRI was reviewed and does show postsurgical changes from his recent right thigh sarcoma resection. There does appear to be fluid collection, consistent with an abscess. 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 He has a postoperative infection with abscess and purulent drainage from his drain site. I discussed the diagnosis with the patient and my recommendation would be a surgical I&D of the abscess. Given his recent surgery, I do think transfer to [place] and management by the orthopedic oncology service would be best. I have spoken with the medical service, and they are working on a transfer now. If this is not feasible, please let me know, and I will arrange for a surgical I&D here. For now, continue IV antibiotics. Senthil Kay MD
[2018-10-28] MEDS: Warfarin TAB(*) 1 MG PO SCH (17:37)
[2018-10-28] MEDS ORDERED: LORazepam INJ* 2 MG/ML 1 ML VIAL IV PUSH ONE (18:40)
[2018-10-28] MEDS ORDERED: Lorazepam PYXIS KEY PRN (18:40)
--- NOTE | 2018-10-28 18:40 | TRS ---
DISCHARGE SUMMARY: DATE OF ADMISSION: 10/26/18 DATE OF DISCHARGE: 10/28/18 ACCEPTING FACILITY: [facility] ACCEPTING PHYSICIAN: Dr. Joshua Brownlee PRIMARY CARE PROVIDER: Montserrat Farooq M.D. ATTENDING PHYSICIAN: Sonal Harrison MD * (dictated by GERMAN Quispe) PRIMARY DIAGNOSES: 1. 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 2. Confusion. SECONDARY DIAGNOSES: 1. Hypertension. 2. Atrial fibrillation. 3. Hyperlipidemia. 4. Non-small cell lung cancer. 5. 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 6. Gastroesophageal reflux disease. 7. Anxiety. 8. Long QT syndrome. STUDIES WHILE IN THE HOSPITAL: Hip MRI 10/26/18. Impression: Postoperative changes of the periarticular right hip, as described above. Given the provided clinical history, findings are concerning for development of myositis and superficial soft tissue abscess, as described above. No findings of osteomyelitis DISCHARGE MEDICATIONS: Home medications: 1. Esomeprazole 20 mg p.o. daily. 2. Diltiazem XR 120 mg p.o. q.a.m. 3. Diazepam 5 mg p.o. every 4-6 hours maximum daily dose 25 mg. 4. Albuterol HFA inhaler 2 puff inhalation every 6 hours p.r.n. 5. Warfarin 1 mg p.o. Tuesday, Tuesday, Tuesday, Tuesday, Tuesday at 1700. 6. Warfarin 2 mg p.o. and Tuesday at 1700. 7. Ibuprofen 400 mg p.o. t.i.d. p.r.n. 8. Hydrocodone/acetaminophen 7.5-325 one tab p.o. every 6 hours p.r.n. pain. Medications added while in the hospital: 1. Folic acid 1 mg p.o. daily. 2. Ondansetron 4 mg IV every 6 hours p.r.n. nausea. 3. Thiamine 100 mg p.o. daily. 4. Vancomycin every 8 hours IV piggyback last dose was 10/28/18 at 1530. HISTORY OF PRESENT ILLNESS/HOSPITAL COURSE: Mr. Hernandes is a 73-year-old male with a complex past medical history significant for non-small cell lung cancer and sarcoma of the right hip. He recently underwent radiation therapy to the right hip and the lung. He then had resection of the sarcoma on 10/17/18 at [facility]. A TYLER drain was inserted and he was discharged feeling well. He presented to [facility] ER on with complaints of loss of muscle mass, strength and decreased p.o. intake due to not having enough money. He was found to be febrile, tachycardic, with borderline hypotension. This responded to Cardizem and fluids. He was given vancomycin, Cipro and Flagyl for sepsis. The right hip was noted to be inflamed along the surgical incision site with inflammation and purulent drainage about the TYLER drain site. He notes that he knocked the TYLER bulb some time recently which has impeded draining. The patient was admitted to the hospital with diagnosis of sepsis and possible right hip wound infection. His sepsis resolved with administration of Cardizem, one of his home medications, and fluid bolus. His lactic acid was within normal limits. A culture of his right hip wound was obtained and grew MRSA. Blood cultures were negative x2 days, as were urine cultures. It is presumed that his sepsis was due to the right hip wound. The patient then underwent a hip MRI which was concerning for possible superficial soft tissue abscess. The wound continues to drain with purulent discharge about the drain site, inflammation, erythema and tenderness to palpation. Orthopedics was consulted regarding this wound. Orthopedics recommend continuation of IV antibiotics with transfer to [place] for management by Orthopedic Oncology. The patient has had the surgery at [place] recently and it is recommended for continuity of care he return to [facility] where his Orthopedic Oncologist works. He will then followup with Orthopedic Oncology and be assessed for likely need for surgical intervention. PHYSICAL EXAMINATION: General: Mr. Hernandes is a well-developed, thin, somewhat disheveled appearing white male who appears older than his stated age. He appears to be in no acute distress. He is talkative, but disoriented and confused. He is non-tremulous and does not appear acutely ill. Vital Signs: Temperature 97.9 oral, heart rate 88, respiratory rate 20, oxygen saturation 100 % on room air, blood pressure 125/79. HEENT: Pupils equally round and reactive to light. Extraocular movements intact. Sclerae are without icterus. Hearing is grossly intact. Oral mucous membranes are moist. There are no lesions. The pharynx is clear. Neck with full range of motion. Trachea at midline. Cardiovascular: Regular rate, irregular rhythm with S1, S2 present. No murmurs, rubs, or gallops. There is no JVD. Respiratory: Symmetrical chest expansion. There is no use of accessory muscles. The lungs are clear to auscultation bilaterally. There are no rhonchi, wheezes, or rubs. Abdomen: Flat. Bowel sounds are noted in all quadrants. The abdomen is soft, and nontender to palpation. There is no hepatosplenomegaly. Extremities: Skin is warm and smooth bilaterally. There is no clubbing, cyanosis, or edema. Radial and pedal pulses are palpable. The right thigh has a longitudinal incision site that is intact without drainage or erythema. There is another incision site with a TYLER drain that is intact and draining. There is erythema and edema about this site. There is purulent drainage noted coming from the wound. There is tenderness to palpation. Neuro: The patient is awake. He is alert, he is oriented to self, but disoriented to place and time. He is able to move all of his extremities. He has a steady gait with no impairment. LABORATORY DATA: WBC 8.2, RBC 3.5, hemoglobin 11.8, hematocrit 35. BUN 8, creatinine 0.82. ASSESSMENT AND PLAN: Mr. Hernandes is a 73-year-old male with a past medical history significant for non-small cell lung cancer, right lateral hip sarcoma with recent resection and TYLER drain insertion, who presented and was admitted for treatment of MRSA infection to the right hip resection site. The patient has a likely abscess that will require drainage. The patient will be transferred to [facility] for followup with his surgical oncologist for further management of the wound. This is a summarized report of a complex medical history and hospital stay. For further details, please see the entire medical record. TIME SPENT: Approximately 45 minutes were spent on this transfer. The case has been reviewed with my attending, Dr. Harrison, who is in agreement with the plan of care. GERMAN QUISPE [id number]/[facility] #: [id number] MARCUS
[2018-10-28] MEDS ORDERED: LORazepam INJ* 2 MG/ML 1 ML VIAL ONE (18:48)
[2018-10-29] MEDS ORDERED: Vancomycin Trough Check NOTE FOLLOW UP ONE (06:30)
== END 2018-10-28 19:22 | disposition short-term general hospital (02) | DRG 862 ==
LOC: ED 11:11 → MEDTELE 14:08
PROVIDERS: ADMIT Internal Medicine; ATTEND Internal Medicine
DX: T81.41XA Infection following a procedure, superficial incisional surgical site, initial encounter (principal); A41.02 Sepsis due to Methicillin resistant Staphylococcus aureus; L03.115 Cellulitis of right lower limb; C34.32 Malignant neoplasm of lower lobe, left bronchus or lung; C79.51 Secondary malignant neoplasm of bone; L02.415 Cutaneous abscess of right lower limb; G47.33 Obstructive sleep apnea (adult) (pediatric); I48.91 Unspecified atrial fibrillation; E78.00 Pure hypercholesterolemia, unspecified; I10 Essential (primary) hypertension; E11.51 Type 2 diabetes mellitus with diabetic peripheral angiopathy without gangrene; K21.9 Gastro-esophageal reflux disease without esophagitis; N40.0 Benign prostatic hyperplasia without lower urinary tract symptoms; M81.0 Age-related osteoporosis without current pathological fracture; E11.36 Type 2 diabetes mellitus with diabetic cataract; F41.9 Anxiety disorder, unspecified; F32.9 Major depressive disorder, single episode, unspecified; E78.5 Hyperlipidemia, unspecified; I45.81 Long QT syndrome; Z85.828 Personal history of other malignant neoplasm of skin; Z88.1 Allergy status to other antibiotic agents; Z87.442 Personal history of urinary calculi; Z88.8 Allergy status to other drugs, medicaments and biological substances; Z82.49 Family history of ischemic heart disease and other diseases of the circulatory system; Z83.3 Family history of diabetes mellitus; Z87.891 Personal history of nicotine dependence; Z79.01 Long term (current) use of anticoagulants
CPT/HCPCS: 36415; 71046; 80048; 80053; 80202; 81003; 81015; 82565; 83605; 83735; 83880; 84484; 84520; 85025; 85610; 85730; 86140; 87040; 87070; 87077; 87086; 87186; 87205; 87640; 87641; 93005; 99284; A9270-GY; J0744; J2060; J2405; J2543; J3370; J3475; J3490

== ENCOUNTER → 2018-12-07 13:32 | Emergency (ER) | payer MEDICARE ==
[~2018-12-07 13:32] MED LIST changes: -Ciprofloxacin 400MG IVPREMIX(* 400 MG/200 ML BAG IVPB ONE; +Diazepam TAB(*) 5 MG PO ONE; -NS 0.9% 1000 ML* 1,000 ML IV ONE; +Sulfamethox/Trimethoprim DS 800/160* TAB PO ONE
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
[2018-12-07 14:50] LABS: ABS Basophils 0.1 10^3/ul (0-0.2); ABS Eosinophils 0.2 10^3/ul (0-0.6); ABS Lymphocytes 0.9 10^3/ul (1.0-4.8); ABS Monocytes 0.5 10^3/ul (0-0.8); ABS Neutrophils 4.5 10^3/ul (1.5-7.7); Eosinophil % 2.7 %; Hematocrit 35 % (42-52); Hemoglobin 11.9 g/dL (14.0-18.0); Lymphocyte % 14.3 %; Mean Corpuscular HGB Conc 34 g/dL (31-36); Mean Corpuscular Hemoglobin 31 pg (27-31); Mean Corpuscular Volume 90 fL (80-94); Mean Platelet Volume 7.3 fL (7.4-10.4); Platelet Count 262 10^3/uL (150-450); Red Blood Count 3.91 10^6 /uL (4.18-5.48); Red Cell Distribution Width 14 % (10-15); White Blood Count 6.1 10^3/uL (3.5-10.8)
[2018-12-07 14:55] LABS: Urine Appearance Cloudy; Urine Bacteria Absent (Absent); Urine Bilirubin Negative (Negative); Urine Blood 2+ (Negative); Urine Color Yellow; Urine Glucose Negative (Negative); Urine Ketones Negative (Negative); Urine Nitrite Negative (Negative); Urine Protein Negative (Negative); Urine Red Blood Cell 3+(>10/hpf) (Absent); Urine Specific Gravity 1.011 (1.010-1.030); Urine Squamous Epithelial Cell Present (Absent); Urine Urobilinogen Negative (Negative); Urine White Blood Cell 3+(>20/hpf) (Absent)
[2018-12-07 14:57] LABS: Activated Partial Thrombo Time 40.3 seconds (26.0-38.0); INR 2.16 (0.82-1.09)
[2018-12-07 15:04] LABS: Albumin 3.7 g/dL (3.2-5.2); Albumin/Globulin Ratio 1.2 (1-3); BUN/Creatinine Ratio 7.9 (8-20); Calcium 9.8 mg/dL (8.6-10.3); EGFR African American 101.7 (>60); Globulin 3.1 g/dL (2-4); Potassium 3.8 mmol/L (3.5-5.0); Total Bilirubin 0.7 mg/dL (0.2-1.0); Total Protein 6.8 g/dL (6.4-8.9)
[2018-12-07 18:26] VITALS: BP 122/85
--- NOTE | 2018-12-08 16:15 | PN ---
Progress Note - Progress Note Date of Service: 12/07/18 Note: Final CXR read per radiology: IMPRESSION: LEFT LUNG INFILTRATE SIMILAR TO THE PRIOR CHEST X-RAY STUDY LOCATED IN THE REGION OF THE PRIOR CAVITARY MASS. RECOMMEND FOLLOW-UP CHEST X-RAYS TO RESOLUTION OR FURTHER EVALUATION WITH CT IMAGING. R1F Pt. seen in ED for MHE. This is a known finding. No change in treatment.
== END | disposition home or self-care (01) ==
LOC: ED 13:32
DX: N39.0 Urinary tract infection, site not specified (principal); R41.0 Disorientation, unspecified; R44.1 Visual hallucinations; C34.32 Malignant neoplasm of lower lobe, left bronchus or lung; C79.51 Secondary malignant neoplasm of bone; Z85.828 Personal history of other malignant neoplasm of skin; E11.9 Type 2 diabetes mellitus without complications; I48.91 Unspecified atrial fibrillation; Z79.01 Long term (current) use of anticoagulants; E78.00 Pure hypercholesterolemia, unspecified; I10 Essential (primary) hypertension; K21.9 Gastro-esophageal reflux disease without esophagitis; F41.9 Anxiety disorder, unspecified; Z88.1 Allergy status to other antibiotic agents; Z88.8 Allergy status to other drugs, medicaments and biological substances
CPT/HCPCS: 36415; 71045; 80053; 81003; 81015; 83605; 84484; 85025; 85610; 85730; 87040; 87086; 99283; A9270-GY

== ENCOUNTER 2018-12-14 17:04 | Inpatient (IN) | payer MEDICARE ==
--- NOTE | 2018-12-14 18:16 | ED ---
Lower Extremity - HPI Summary HPI Summary: The patient is a 73 y/o M presenting to [facility] with a chief complaint of myalgia and edema in the calf of the RLE after being diagnosed with a blood clot today by PCP. He reports that he isn't sure if he's been taking the Warfarin correctly , and he doesn't remember if he last took the medication last night or this morning. He thinks that he's been taking his other medications correctly. fever , chills, erythema of eyes, sore throat, CP, palpitations, SOB, cough, abdominal pain, N/V, dysuria, hematuria, rash, dizziness, and SI. He states he has been using compression socks but takes them off at night for sleeping. He lives by himself at home. He is not currently in pain. Hx of DM, afib, HLD, HTN , peripheral vascular disease, LLL nodule, kidney stones, lung cancer with metastases to bone. Former smoker, rare EtOH, no substance use. - History of Current Complaint Chief Complaint: EDExtremityLower Stated Complaint: DR SENT PT OVER PER RADIOLIGIST Time Seen by Provider: 12/14/18 18:06 Hx Obtained From: Patient Mechanism Of Injury: Other - blood clot in RLE Onset of Pain: Prior to Arrival Onset/Duration: Still Present Severity Initially: Moderate Severity Currently: Moderate Pain Intensity: 0 Pain Scale Used: 0-10 Numeric Timing: Lasting Hours Location: Is Discrete @ - RLE, calf Associated Signs And Symptoms: Positive: Swelling, Other - POSITIVE: pain in RLE ; NEGATIVE: fever, chills, erythema of eyes, sore throat, CP, palpitations, SOB , cough, abdominal pain, N/V, dysuria, hematuria, rash, dizziness, SI. Negative : Fever, Dizziness, Abdominal Pain Aggravating Factor(s): Other - possibly not taking medications as supposed to Alleviating Factor(s): Nothing Able to Bear Weight: Yes - Allergies/Home Medications Allergies/Adverse Reactions: Allergies Allergy/AdvReac Type Severity Reaction Status Date / Time cephalexin [From Keflex] Allergy Unknown Verified 12/14/18 17:10 Reaction Details nabumetone [From Relafen] Allergy Nausea And Verified 12/14/18 17:10 Vomiting PMH/Surg Hx/FS Hx/Imm Hx Endocrine/Hematology History: Reports: Hx Diabetes - type II, resolved with weight loss ? 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, Other Cardiovascular Problems/Disorders - FOLLOWED BY DR CHEN Denies: Hx Pacemaker/ICD Respiratory History: Reports: Hx Sleep Apnea - uses CPAP, Other Respiratory Problems/Disorders - uses ventolin PRN; LLL nodule Denies: Hx Asthma GI History: Reports: Hx Gastroesophageal Reflux Disease - ON DAILY MEDS History: Reports: Hx Benign Prostatic Hyperplasia, Hx Kidney Stones - 04/12, PASSED Denies: Hx Dialysis, Hx Renal Disease Musculoskeletal History: Reports: Hx Osteoporosis Denies: Hx Rheumatoid Arthritis Sensory History: Denies: Hx Contacts or Glasses, Hx Hearing Aid Comment Only: Hx Cataracts - STATES RIGHT EYE SLOWLY GROWING Opthamlomology History: Denies: Hx Contacts or Glasses Comment Only: Hx Cataracts - STATES RIGHT EYE SLOWLY GROWING Psychiatric History: Reports: Hx Anxiety - Valium, Hx Depression - GETS VERY DEPRESSED, NO SPECIFIC MEDS Denies: Hx Eating Disorder, Hx Panic Disorder, Hx Bipolar Disorder, Hx of Violent Episodes Against Others - Cancer History Cancer Type, Location and Year: 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 Hx Anesthesia Reactions: No Infectious Disease History: No Infectious Disease History: Denies: Traveled Outside the [place] in Last 30 Days - Family History Known Family History: Positive: Cardiac Disease - father, Diabetes - father - Social History Alcohol Use: Rare Hx Substance Use: Yes - stimulants Substance Use Type: Reports: None Substance Use Comment - Amount & Last Used: denies Hx Tobacco Use: Yes Smoking Status (MU): Former Smoker Type: Cigarettes Amount Used/How Often: 2PPD 10 YRS Length of Time of Smoking/Using Tobacco: 10 YRS Have You Smoked in the Last Year: No Review of Systems Negative: Fever, Chills Negative: Erythema Negative: Sore Throat Negative: Palpitations, Chest Pain Negative: Shortness Of Breath, Cough Negative: Abdominal Pain, Vomiting, Nausea Negative: dysuria, hematuria Positive: Myalgia - RLE, Edema - RLE Negative: Rash Neurological: Other - NEGATIVE: dizziness Positive: Other - NEGATIVE: SI All Other Systems Reviewed And Are Negative: Yes Physical Exam - Summary Physical Exam Summary: Constitutional: Well-developed, Well-nourished, Alert. (-) Distressed Skin: Warm, Dry HENT: Normocephalic; Atraumatic Eyes: Conjunctiva normal Neck: Musculoskeletal ROM normal neck. (-) JVD, (-) Stridor, (-) Tracheal deviation Cardio: Rhythm regular, rate normal, Heart sounds normal; Intact distal pulses; The pedal pulses are 2+ and symmetric. Radial pulses are 2+ and symmetric. (-) Murmur Pulmonary/Chest wall: Effort normal. (-) Respiratory distress, (-) Wheezes, (-) Rales Abd: Soft, (-) tenderness, (-) Distension, (-) Guarding, (-) Rebound Musculoskeletal: (+) RLE calf has trace edema Lymph: (-) Cervical adenopathy Neuro: Alert, Oriented x3 Psych: Mood and affect Normal Triage Information Reviewed: Yes Vital Signs On Initial Exam: Initial Vitals Temp Pulse Resp BP Pulse Ox 98.9 F 115 16 137/82 98 12/14/18 17:07 12/14/18 17:07 12/14/18 17:07 12/14/18 17:07 12/14/18 17:07 Vital Signs Reviewed: Yes Diagnostics - Vital Signs Vital Signs Temp Pulse Resp BP Pulse Ox 12/14/18 17:07 98.9 F 115 16 137/82 98 - Laboratory Result Diagrams: 12/14/18 18:17 12/14/18 18:17 Lab Statement: Any lab studies that have been ordered have been reviewed, and results considered in the medical decision making process. - EKG 1830 Cardiac Rate: Other Rate - 90 BPM EKG Rhythm: Atrial Fibrillation Summary of EKG Findings: Atrial fibrillation. No STEMI. Re-Evaluation - Re-Evaluation First Eval Re-Evaluation Time: 19:10 Comment: We discussed possible admission. Lower Extremity Course/Dx - Course Assessment/Plan: The patient is a 73 y/o M presenting to [facility] with a chief complaint of myalgia and edema in the calf of the RLE after being diagnosed with a blood clot today by PCP. He reports that he isn't sure if he's been taking the Warfarin correctly, and he doesn't remember if he last took the medication last night or this morning. He thinks that he's been taking his other medications correctly. fever, chills, erythema of eyes, sore throat, CP, palpitations, SOB, cough, abdominal pain, N/V, dysuria, hematuria, rash, dizziness, and SI. He states he has been using compression socks but takes them off at night for sleeping. He lives by himself at home. He is not currently in pain. Hx of DM, afib, HLD, HTN, peripheral vascular disease, LLL nodule, kidney stones, lung cancer with metastases to bone. Former smoker, rare EtOH, no substance use. Upon physical exam, the patient exhibits trace edema in the calf of the RLE. In the ED course the patient was administered Lovenox. Bloodwork shows WBC of 3.80, hgb of 11.8, hct of 34, INR of 2.23, APTT of 73.9, and glucose of 110. EKG shows atrial fibrillation at 90 BPM. The patient is diagnosed with DVT and medication noncompliance. I will consult with the hospitalist concerning admission. for DVT despite therapeutic INR. Dr. Carty, hospitalist, accepts the patient for admission. He agrees with this plan. - Diagnoses Provider Diagnoses: DVT (deep venous thrombosis), H/O medication noncompliance - Physician Notifications Discussed Care Of Patient With: Waqar Carty - hospitalist Time Discussed With Above Provider: 19:10 Instructed by Provider To: Other - I discussed the patient's case with Dr. Carty, and he accepts the patient for admission. Discharge - Sign-Out/Discharge Documenting (check all that apply): Patient Departure - Patient is accepted for admission by Dr. Carty. Patient Received Moderate/Deep Sedation with Procedure: No - Discharge Plan Condition: Stable Disposition: ADMITTED TO [facility] Referrals: Montserrat Farooq MD [Primary Care Provider] - - Billing Disposition and Condition Condition: STABLE Disposition: Admitted to [facility] - Attestation Statements Document Initiated by Scribe: Yes Documenting Scribe: Connie Swift Provider For Whom Scribe is Documenting (Include Credential): Dr. Maurisio Fitzpatrick MD Scribe Attestation: Connie He, scribed for Dr. Maurisio Fitzpatrick MD on 12/14/18 at 2107. Status of Scribe Document: Ready
[2018-12-14 18:40] LABS: Hematocrit 34 % (42-52); Hemoglobin 11.8 g/dL (14.0-18.0); Mean Corpuscular HGB Conc 34 g/dL (31-36); Mean Corpuscular Hemoglobin 31 pg (27-31); Mean Corpuscular Volume 90 fL (80-94); Mean Platelet Volume 7.5 fL (7.4-10.4); Platelet Count 336 10^3/uL (150-450); Red Cell Distribution Width 14 % (10-15); White Blood Count 6.1 10^3/uL (3.5-10.8)
[2018-12-14 18:46] LABS: Albumin 3.6 g/dL (3.2-5.2); Albumin/Globulin Ratio 1.1 (1-3); BUN/Creatinine Ratio 12.6 (8-20); Calcium 9.3 mg/dL (8.6-10.3); EGFR African American 104.4 (>60); EGFR Non-African American 86.3 (>60); Globulin 3.2 g/dL (2-4); Potassium 3.9 mmol/L (3.5-5.0); Total Bilirubin 0.5 mg/dL (0.2-1.0); Total Protein 6.8 g/dL (6.4-8.9)
[2018-12-14 18:54] LABS: INR 2.23 (0.82-1.09)
[2018-12-14 18:55] LABS: Activated Partial Thrombo Time 43.9 seconds (26.0-38.0)
[2018-12-14] MEDS ORDERED: Enoxaparin(*) 80 MG/0.8 ML SYR SUBCUT ONE (19:01)
[2018-12-14] MEDS ORDERED: Piperacillin/Tazobac ADVAN(*) 3.375 GM in NS 0.9% 100 ML* 100 ML IVPB ONE (21:10)
[2018-12-14] MEDS ORDERED: Vancomycin(*) 1,250 MG IV x ONCE IVPB ONE ×2 (21:30)
[2018-12-14] MEDS ORDERED: Vancomycin(*) 1,000 MG VIAL IVPB SCH (22:00)
[2018-12-14] MEDS ORDERED: Zosyn per Pharmacy* NOTE FOLLOW UP SCH (22:00)
[2018-12-14] MEDS ORDERED: Vancomycin per Pharmacy* NOTE FOLLOW UP PRN (22:31)
--- NOTE | 2018-12-15 01:29 | HP ---
CC: Dr. Montserrat Farooq * HISTORY AND PHYSICAL: DATE OF ADMISSION: 12/14/18 PRIMARY CARE PROVIDER: Dr. Montserrat Farooq. ATTENDING PHYSICIAN WHILE IN THE HOSPITAL: Dr. Janeth Garcia * (dictated by Pushpa Colon NP) CHIEF COMPLAINT: DVT. HISTORY OF PRESENT ILLNESS: Mr. 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 The patient is a poor historian. The patient does complain of edema to his calf. According to the emergency room records, the patient reports he is unsure if he was taking his warfarin correctly and does not remember if he last took the medication last night or this morning, but he reports that he has been taking all of his medications correctly. He denies any fever, chills. He denies any chest pain, edema, cough, hemoptysis, or shortness of breath. No nausea, vomiting, diarrhea or abdominal pain. He denies any gross hematuria, dysuria, focal weakness, or sensory loss. Denies any visual complaints, dysphagia, arthralgias, myalgias. He does report right upper thigh swelling with redness and drainage for approximately 1 to 2 days per the patient. The patient reports that he lives home alone. Due to his new finding of a DVT while on anticoagulation, we were asked to see and evaluate the patient for admission. PAST MEDICAL HISTORY: Significant for: 1. Hypertension. 2. Atrial fibrillation. 3. Hyperlipidemia. 4. GERD. 5. Anxiety. 6. Diabetes. 7. Obstructive sleep apnea, on no treatment. 8. Sarcoma of the right lower extremity, status post resection. 9. Non-small cell lung carcinoma. 10. Long QT syndrome. PAST SURGICAL HISTORY: Radical resection of the right lower extremity sarcoma in September of 2018. HOME MEDICATIONS: Include: 1. Valium 5 mg. The patient reports he takes this up to 8 times a day. 2. Cardizem 120 mg p.o. daily. 3. Coumadin 2 mg Tuesday, Tuesday, Tuesday, Tuesday, Tuesday; 4 mg Tuesday, . 4. Bactrim DS 1 tablet twice daily started on 12/07/18. 5. Albuterol HFA inhaler 2 puffs q.6 hours as needed for shortness of breath. ALLERGIES: He has allergy to CEPHALEXIN and NABUMETONE. FAMILY HISTORY: Father with a history of an NC. Mother and half-sisters x3 sisters, all with unknown type of cancer. SOCIAL HISTORY: The patient denies any tobacco, alcohol or illicit drug use. He lives alone. Surrogate decision maker, he does not wish to live. He is a full code. REVIEW OF SYSTEMS: A 14-point review of systems was completed. All pertinent positives were mentioned in the HPI. PHYSICAL EXAMINATION GENERAL: At this time, Mr. Hernandes is a 73-year-old male, resting comfortably on the stretcher in the emergency room. He is alert and oriented x3. He is in no acute distress. VITAL SIGNS: Blood pressure was 135/79, heart rate 78, respirations 15, O2 saturation 99%, temperature was 98.9. HEENT: Head is atraumatic, normocephalic. Eyes: EOMs are intact. Sclerae anicteric and not pale. Oral mucosa appeared to be moist. NECK: Supple. LUNGS: Clear to auscultation bilaterally. No wheezes, rales, or rhonchi. CARDIAC: S1, S2. Irregular rate and rhythm. No murmurs, rubs, or gallops. ABDOMEN: Soft, nontender. Bowel sounds are present x4. EXTREMITIES: He is able to move all 4 extremities. Pedal pulses are +2 bilaterally. He does have an open area noted to his right upper thigh with serous drainage with surrounding erythema and firm to the touch. Bilateral lower leg with swelling right greater than the left. NEUROLOGIC: The patient is awake, alert, and oriented x3. Speech is clear. There are no gross focal deficits. SKIN: He does have erythema and an open area noted to the right upper thigh at the previous surgical site. Area is firm with surrounding erythema. He does have some purulent drainage. DIAGNOSTIC STUDIES/LAB DATA: WBCs are 6.1, RBCs 3.80, hemoglobin 11.8, hematocrit 34, platelet count 336. INR was 2.23. Sodium 140, potassium 3.9, chloride 103, carbon dioxide was 31, anion gap was 6, BUN was 11, creatinine 0.87, glucose 110, calcium 9.3. Total bilirubin 0.50. ASTs were 15, ALTs were 9, alkaline phosphatase 78. He had an electrocardiogram which showed atrial fibrillation at a rate of 90. He had ultrasound of the soft tissues of the right upper thigh, radiologist's impression: Hypoechoic subcutaneous collection at the region of concern in the proximal right thigh concerning for abscess with a thin sinus tract communicating with overlying skin surface. 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 ASSESSMENT AND PLAN: Mr. Hernandes is a 73-year-old male who presented to the emergency room at the direction of his doctor after finding of DVT in his right leg. He will be admitted under observation for: 1. DVT: The patient did have an imaging confirming DVT in the right leg. The patient is currently on anticoagulation with Coumadin therapy. He did have a subtherapeutic INR in October, but has been therapeutic on other checks on 12/07/18 and 12/14/18. I did speak to Deysi from Hematology/Oncology as the patient does have a history of non-small cell lung carcinoma with sarcoma in the right thigh. The recommended treatment would be low molecular weight heparin i.e. Lovenox 1 mg/kg subcu twice daily. The patient is reports that he is unable to do injections on his own. Dr. Jo's second recommendation was to place the patient on a NOAC. Dr. Jo did recommend that the patient start on Xarelto at 15 mg twice daily for 21 days and then 20 mg p.o. daily. He did recommend a followup with Hematology/Oncology as an outpatient. I will stop the patient's Coumadin. I will again start him on Xarelto. 2. Cellulitis, open wound to the right upper thigh. The patient does have an open draining wound to right upper thigh with purulent drainage. He does have a firm surrounding mass. I did order an ultrasound of the right upper thigh which shows concern for abscess. I will place him on vancomycin and Zosyn. Will need to consult Surgery in the morning for any further recommendations and possible need for debridement of that area. 3. Atrial fibrillation. The patient should continue on Cardizem as previously prescribed and we will continue him on Xarelto. 4. Hypertension. The patient will continue on Cardizem. 5. Anxiety. The patient does take diazepam 5 mg q.4 hours as needed for anxiety. He reports that he takes this medication up 8 times a day, but is only prescribed upto 5 times a day. We will continue this during his hospitalization papa lower frequency. 6. FEN: The patient will continue with heart healthy diet, caffeine okay. 7. Code status: He is a full code. 8. DVT prophylaxis: He will be on Xarelto. 9. Disposition: The patient will placed inpatient on the telemetry floor. TIME SPENT: Time spent on this admission was approximately 60 minutes, greater than half that time was spent at the bedside reviewing events leading thus far to his hospitalization, performing physical exam, and reviewing my plan of care. I have discussed this with my attending, Dr. Janeth Garcia; she is in agreement with my plan. PUSHPA COLON, FLIGHT SECURITY SPECIALIST [id number]/[facility] #: [id number] MARCUS
[2018-12-15] MEDS: Diazepam TAB(*) 5 MG PO PRN ×3 (01:51→18:10)
[2018-12-15] MEDS: ZOSYN 3.375 GM Q8H per EXTENDED INFUSION IVPB SCH ×4 (01:51→10:06)
[2018-12-15] MEDS ORDERED: ZOSYN 3.375 GM Q8H per EXTENDED INFUSION IVPB SCH ×2 (02:00)
[2018-12-15 06:07] LABS: ABS Eosinophils 0.3 10^3/ul (0-0.6); ABS Lymphocytes 0.8 10^3/ul (1.0-4.8); ABS Monocytes 0.4 10^3/ul (0-0.8); ABS Neutrophils 3.9 10^3/ul (1.5-7.7); Eosinophil % 5.1 %; Hematocrit 34 % (42-52); Hemoglobin 11.3 g/dL (14.0-18.0); Lymphocyte % 14.4 %; Mean Corpuscular HGB Conc 34 g/dL (31-36); Mean Corpuscular Hemoglobin 30 pg (27-31); Mean Corpuscular Volume 91 fL (80-94); Mean Platelet Volume 7.5 fL (7.4-10.4); Platelet Count 279 10^3/uL (150-450); Red Blood Count 3.72 10^6 /uL (4.18-5.48); Red Cell Distribution Width 14 % (10-15); White Blood Count 5.4 10^3/uL (3.5-10.8)
[2018-12-15 06:20] LABS: BUN/Creatinine Ratio 11.3 (8-20); Calcium 8.8 mg/dL (8.6-10.3); Potassium 3.2 mmol/L (3.5-5.0)
[2018-12-15] MEDS: Acetaminophen TAB* 325 MG PO PRN ×2 (07:37→20:45)
[2018-12-15] MEDS: Rivaroxaban TAB(*) 15 MG PO SCH ×2 (07:46→20:44)
[2018-12-15] MEDS: Diltiazem CD CAP* 120 MG PO SCH (07:46)
[2018-12-15] MEDS ORDERED: KCL 20 MEQ/100 ML IVPREMIX* 20 MEQ/100 ML BAG IV ONE (08:14)
[2018-12-15] MEDS ORDERED: Potassium Chlor TAB* 20 MEQ TAB.ER PO ONE (08:14)
[2018-12-15] MEDS: Vancomycin(*) 1,000 MG in NS 0.9% 250 ML* 250 ML IVPB SCH ×2 (11:10→23:12)
[2018-12-15 12:19] LABS: C Reactive Protein 54.22 mg/L (<8.01)
[2018-12-15] MEDS ORDERED: Iodixanol* (CONTRAST) 320 MG/ML 100 ML SDV IV ONE (12:19)
--- NOTE | 2018-12-15 14:18 | CONS ---
CONSULTATION REPORT: DATE OF CONSULTATION: 12/15/18 DATE OF ADMISSION: 12/14/18 PRIMARY CARE PROVIDER: Dr. Montserrat Farooq. PROVIDER REQUESTING CONSULTATION: Jannette Salas NP CONSULTING SERVICE: Infectious Disease. PROVIDER: Park Khan NP My attending is Dr. Constantino Del Valle.* (DICTATED BY PARK KHAN , DIRECTOR INDUSTRIAL MUSEUM-C) REASON FOR CONSULTATION: Right thigh cellulitis with abscess. HISTORY OF PRESENT ILLNESS: Mr. Hernandes is a 73-year-old male with past medical history significant for hypertension, atrial fibrillation, hyperlipidemia, GERD, anxiety, diabetes, obstructive sleep apnea, sarcoma of the right thigh, non-small cell lung cancer, history of a prolonged QT syndrome , who came to the emergency room at the recommendation of his primary care provider after being diagnosed with a blood clot in his right lower extremity. The patient is a poor historian but reports that he always has edema in both of his legs and it is worse in the right leg above the compression stockings that he wears. According to his medical record, he was on warfarin for his atrial fibrillation, but it is unclear if he has been taking that appropriately. He was previously seen on 12/07/18 in the emergency room at which time, he presented via the police as his primary care was concerned about him not taking his medications. At that time, he had a mental health evaluation and was felt to be safe for discharge. He was also felt to have delirium secondary to a urinary tract infection, was started on Bactrim. He states that he completed the course of Bactrim that he was given at that time. The urine culture grew no growth on the final culture. He denies any fevers, chills, chest pain, shortness of breath, cough, nausea, vomiting, diarrhea, abdominal pain. He denies any urinary symptoms such as urgency, frequency, dysuria. He denies any joint pain or muscle pain. He does report some redness and drainage from his right thigh which he feels is improving. Due to the diagnosis of a new DVT while on anticoagulation, he was referred to the hospitalist service for evaluation and possible admission. While in the hospital, the patient was on vancomycin and Zosyn. He had a right thigh soft tissue ultrasound, showing hypoechoic subcutaneous collection in the region of concern in the proximal right thigh, concerning for abscess with a thin sinus tract communicating with the overlying skin surface. This area was approximately 1.1 x 1.7 cm according to the radiologist's measurement. He has no leukocytosis. He has been afebrile while in the hospital and he has no complaints today and is anxious to be discharged. IMPRESSION: 1. Right upper thigh cellulitis with associated abscess. There is an area of erythema with an open area with purulent drainage and an area of induration proximal to this. He has no leukocytosis and is afebrile. He has been on Bactrim outpatient for presumed urinary tract infection, whic was started approximately a week ago. 2. Right lower extremity deep venous thrombosis. 3. Diabetes mellitus type 2. 4. Right lower extremity sarcoma status post radiation and resection. PLAN: Recommended discontinuing Zosyn and continuing vancomycin, since the initial PCR is MRSA positive on the wound culture. Also recommend getting a contrasted CT of the right thigh to evaluate if the abscess that is present has a deep sinus tract or not. If this is found to have a significant collection, could consider orthopedic or surgical consult for debridement of thigh or drainage of the abscess. Further recommendations will be based off of the clinical course and the results of the CT scan. PAST MEDICAL HISTORY: 1. Hypertension. 2. Atrial fibrillation. 3. Hyperlipidemia. 4. GERD. 5. Anxiety. 6. Diabetes mellitus type 2. 7. Obstructive sleep apnea, he has not been using his CPAP as he states that the settings have been reset on him. 8. Right lower extremity sarcoma, status post resection and radiation. 9. Non-small cell lung cancer. 10. History of prolonged QT syndrome. PAST SURGICAL HISTORY: Status post right thigh resection in September 2018 at [place]. MEDICATIONS: Home medications include: 1. Warfarin 2 mg by mouth on Tuesday, Tuesday, Tuesday, Tuesday, Tuesday, and 4 mg by mouth on Sundays and . 2. Bactrim DS 1 tablet by mouth twice daily. 3. Diltiazem extended release 120 mg by mouth every day. 4. Diazepam 5 mg by mouth every 4 hours as needed for anxiety. 5. Albuterol HFA inhaler 2 puffs inhalation every 6 hours as needed for shortness of breath. Hospital medications: 1. Acetaminophen 650 mg by mouth every 4 hours as needed for fever or pain. 2. Albuterol HFA inhaler 2 puffs inhalation every 6 hours as needed for shortness of breath or wheeze. 3. Valium 5 mg by mouth every 4 hours as needed for anxiety. 4. Diltiazem CD 120 mg by mouth every morning. 5. Xarelto 15 mg by mouth twice daily. 6. Vancomycin 1000 mg IV every 12 hours. 7. Zosyn 3.375 g IV every 8 hours. ALLERGIES: CEPHALEXIN, he is unsure of the reaction and RELAFEN. FAMILY HISTORY: Denies any family history of recurrent resistant infections or tuberculosis. He reports father had a history of heart disease and diabetes. Mother, 3 half sisters, and a half brother with a history of unknown cancer. SOCIAL HISTORY: Denies alcohol, tobacco, or recreational drug use. REVIEW OF SYSTEMS: I performed a 10-point review of systems. All the pertinent positives and negatives are as mentioned in the history of present illness. The remaining review of systems are negative. PHYSICAL EXAMINATION: Vital Signs: Temperature 97.3, heart rate 82, respiratory rate 24, O2 sat 100% on room air, blood pressure 129/78. General Appearance: Alert, pleasant, appears to be in no acute distress. Head: Normocephalic, atraumatic. Pupils are equal, reactive to light. Extraocular movements are intact. Mucous membranes are moist. There is no subconjunctival hemorrhage noted. Neck: Supple. No lymphadenopathy. Neurological: Alert and oriented x4. Cranial nerves II through XII are grossly intact. Cardiovascular : Heart rate is irregular. S1, S2 present. No murmurs, rubs, or gallops heard. Respiratory: Lungs sounds are clear to auscultation bilaterally. No accessory muscle use. Abdomen: Bowel sounds present. Abdomen is soft, nontender, nondistended. Extremities: 2+ right lower extremity edema. Musculoskeletal: No clubbing or cyanosis noted. Negative log roll to the right lower extremity. Full range of motion of the right hip and knee. No crepitus or tenderness with palpation of either joint. Psychological: Calm and cooperative. Skin: There is an area of erythema in his upper anterior thigh. Along the healed incision line, there is an open area with purulent drainage. There is also an area of induration proximal to this and an area of erythema surrounding. DIAGNOSTIC STUDIES/LABORATORY DATA: Sodium 143, potassium 3.2, chloride 108, CO2 of 27, BUN 9, creatinine 0.80, glucose 111. White blood cell count 5.4, hemoglobin 11.3, hematocrit 34, platelet count 279,000. Right thigh wound culture with initial PCR positive for MRSA and Staph aureus. Thank you for asking us to see Mr. Hernandes in consultation. The case has been reviewed with the attending, Dr. Constantino Del Valle, who agrees with the plan of care. Reviewed by CORKY MORA 12/18/18 1814 [id number]/[facility] #: [id number] [facility] CENTERMarleni
--- NOTE | 2018-12-15 15:23 | PN ---
Subjective Date of Service: 12/15/18 Interval History: Mr. Hernandes is feeling fine today. He is anxious to go home and is not sure why he is in the hospital. He denies pain. States he has been on antibiotics for his hip wound and would like to go back home on oral antibiotics. Denies CP , SOB, N/V. Family History: Unchanged from Admission Social History: Unchanged from Admission Past Medical History: Unchanged from Admission Objective Active Medications: Acetaminophen (Tylenol Tab*) 650 mg PO Q4H PRN FEVER/PAIN Albuterol (Ventolin Hfa Inhaler*) 2 puff INH Q6H PRN SHORTNESS OF BREATH Diazepam (Valium Tab(*)) 5 mg PO Q8H PRN ANXIETY Diltiazem HCl (Cardizem Cd Cap*) 120 mg PO QAM NATHANIEL Vancomycin HCl 1,000 mg/ (Sodium Chloride) 250 mls @ 166.667 mls/hr IVPB Q12H NATHANIEL Rivaroxaban (Xarelto(*)) 15 mg PO BID [facility] Vital Signs - 8 hr 12/15/18 12/15/18 12/15/18 07:37 10:08 11:55 Temperature 98.4 F 97.5 F Pulse Rate 70 111 Respiratory 18 13 18 Rate Blood Pressure 133/72 157/93 (mmHg) O2 Sat by Pulse 100 100 Oximetry Oxygen Devices in Use Now: None Appearance: Elderly male sitting in chair in NAD Eyes: No Scleral Icterus Ears/Nose/Mouth/Throat: Mucous Membranes Moist Neck: NL Appearance and Movements; NL JVP, Trachea Midline Respiratory: Symmetrical Chest Expansion and Respiratory Effort, Clear to Auscultation Cardiovascular: NL Sounds; No Murmurs; No JVD, RRR Abdominal: NL Sounds; No Tenderness; No Distention Extremities: - - +1 pitting BLE Skin: - - Right hip would with purulent center and surrounding erythema Neurological: - - Oriented to self and place Lines/Tubes/Other Access: Clean, Dry and Intact Peripheral IV Nutrition: Taking PO's Result Diagrams: 12/15/18 05:20 12/15/18 05:20 Assess/Plan/Problems-Billing Assessment: Mr. Hernandes is a 73 yo M with PMH of HTN, afib, DM2, HLD, lung cancer, and RLE sarcoma s/p resection; who was sent to the ED by his PCP for concern for DVT and was additionally found to have right hip cellulitis. - Patient Problems (1) Cellulitis of right hip Code(s): L03.115 - CELLULITIS OF RIGHT LOWER LIMB Comment: - S/p sarcoma resection in September, now with infected surgical site - Was on Bactrim outpatient; failed outpatient therapy - CT shows 5x5x9 cm abscess with cellutlitis, myositis, and fasciitis - Wound culture growing MRSA and Staph aureus - Appreciate ID consult; recommends CT, Zosyn, vanco, possible debridement - Appreciate Surgery consult - Continue Zosyn, vanco (2) DVT (deep venous thrombosis) Code(s): I82.409 - ACUTE EMBOLISM AND THOMBOS UNSP DEEP VN UNSP LOWER EXTREMITY Comment: - US shows occlusive RLE DVT - Has been on Coumadin, intermittently subtherapeutic - Previous provider spoke with Hematology who recommended starting a NOAC as the patient is unable to self-administer Lovenox - Continue Xarelto (3) Afib Code(s): I48.91 - UNSPECIFIED ATRIAL FIBRILLATION Comment: - Rate controlled - Continue diltiazem, Xarelto (4) Diabetes mellitus Code(s): E11.9 - TYPE 2 DIABETES MELLITUS WITHOUT COMPLICATIONS Comment: - Previously diet controlled - A1c pending (5) HTN (hypertension) Code(s): I10 - ESSENTIAL (PRIMARY) HYPERTENSION Comment: - Slightly hypertensive, SBP 120-150s - Continue diltiazem (6) Anxiety Code(s): F41.9 - ANXIETY DISORDER, UNSPECIFIED Comment: - Continue diazepam (7) DVT prophylaxis Comment: - Xarelto (8) Full code status Code(s): Z78.9 - OTHER SPECIFIED HEALTH STATUS Comment: Status and Disposition: Inpatient. Pending capacity eval. Anticipate d/c home when medically stable. Attending: Waqar aCrty
--- NOTE | 2018-12-15 17:36 | CONSULT ---
Consult Consult: Consult for Medical Decision Making Capacity S: Psychiatry is asked to evaluate capacity in this 73 y.o. single, white male with a history of coagulopathy and recent surgery on his right hip to remove sarcoma, admitted to Medicine on December 14 following discovery by his primary care provider of a DVT in his right leg. The patient is supposed to be on antibiotics and anticoagulants on an outpatient basis but has a history of limited adherence with these. He is currently receiving IV antibiotics and oral blood thinners. He apparently feels that he can safely receive treatment at home and has requested discharge AMA. I spoke with Hospitalist Jannette Salas who indicates that, in particular light of his noncompliance, going home would put him at risk of further DVT, pulmonary embolus, worsening infection in his leg with potential spread to his blood or loss of ambulation. On exam the patient is calm and cooperative. He just allowed the surgical service to debride his wound and tolerated this well. I asked him in a plainspoken manner about his diagnoses and he responds "Your guess is as good as mine." He doesn't seem to know what treatment the primary team is offering. "I don't do well in places like this. I feel couped up. I'm the type that likes to stay active. I need to go home." I asked him if he could name any risks to leaving the hospital, to which he replies "Oh no, I'll be fine. I can take the medicine in pills." Mr. Hernandes cannot name any supports in the home or community such as family or friends that could assist him in meeting his needs. "My girlfriend in 2006 and I've pretty much stuck to myself since then." O: aging white male with a mustache; slender; wearing street clothing with a pack of cigarettes hanging out of his pocket; fair grooming, cooperative; euthymic mood with a somewhat constricted affect; denies SI or HI; insight and judgment poor given insistence on leaving; awake and alert; oriented to place time and situation A/P: Capacity: During our interaction, Mr. Hernandes failed to demonstrate a reasonable understanding of his illness, the recommended treatment or the associated risks of refusing said treatment. In my judgment, he lacks the capacity to make an informed decision about staying in the hospital for continued antibiotic and anticoagulant therapy. Capacity is subject to change in these situations and psychiatry can be re-consulted in the event of any significant changes in his presentation. I have discussed my opinion with the patient, unit staff and attending hosptialist, Jannette Salas. Thank you for the consult.
--- NOTE | 2018-12-15 18:02 | CONS ---
CC: [facility]; Sakshi Funes MD, [facility]; Dr. Montserrat Farooq SURGICAL CONSULTATION REPORT: DATE OF CONSULT: 12/15/18 LOCATION: The patient was seen in room 405. HISTORY OF PRESENT ILLNESS: I was contacted by the hospitalist service to evaluate Mr. Hernandes, a [age]-year-old gentleman who was sent to the emergency room yesterday by radiation oncology, when he was noted to have a DVT at the right lower extremity. The patient followed by the hospitalist service an d he underwent a CT scan of the right lower extremity, which revealed a fluid collection. The patient is a somewhat reasonable historian, who underwent resection of a soft tissue sarcoma of t he right thigh on 10/19/[address] Sakshi Funes in [place]. He was promptly discharged, but presente d to our hospital, where he was transferred back to their hospital for additional treatment and wound care. The patient was ultimately discharged home and has been having persistent drainage from the w ound that he has been managing with daily drainage and placement of bacitracin. The patient does not recall his last radiation therapy to that site. The patient does have a medical oncologist. The patient denies any pain at this time. He is ambulatory. PHYSICAL EXAM: On physical exam, the patient has been afebrile with recent tachycardia of 107. The patient had been 70s throughout much of his hospitalization. Normotensive, O2 sat 100% on room air w ith a respiration of 16. Focused examination of the right thigh reveals a healing linear incision at the lateral aspect with an opening at the mid portion of approximately 0.5 x 0.5 cm. This probe is ap proximately 8 cm in all directions with significant seropurulent drainage. Cultures were obtained an d the wound was irrigated and packed with 0.25 inch iodoform packing followed by gauze. The patient's calf, the right is mildly swollen without tenderness. DIAGNOSTIC STUDIES/LAB DATA: Labs reviewed show normal white count, mildly elevated CRP of 54. CT scan reviewed. IMPRESSION AND PLAN: Postsurgical abscess versus seroma, actively draining with surrounding cellulit is, but nontender and non-warm, who I believe should be treated with antibiotics and wound care consi sting of packing changes daily. The patient can follow up with his surgeon. If he is unable to reac h surgeon, he can follow up with either orthopedic surgery in town or with the wound center. I discu ssed this with the patient and we will consult when recalled. In the meantime, orders are written fo r the nursing staff to change packing daily with 0.25 inch plain packing, followed by gauze and paper tape. Cultures are also ordered. [id number]/[facility] #: [id number]
[2018-12-15] MEDS: Melatonin 3 MG TAB PO PRN (20:44)
[2018-12-16] MEDS ORDERED: Haloperidol INJ IV/IM* 5 MG/ML AMP IV SLOW PU ONE (05:06)
[2018-12-16] MEDS ORDERED: Haloperidol INJ IV/IM* 5 MG/ML AMP ONE (05:09)
[2018-12-16] MEDS: Acetaminophen TAB* 325 MG PO PRN (05:17)
[2018-12-16] MEDS: Diazepam TAB(*) 5 MG PO PRN ×2 (05:18→17:40)
[2018-12-16] MEDS: Diltiazem CD CAP* 120 MG PO SCH ×2 (05:36→09:51)
[2018-12-16 06:43] LABS: BUN/Creatinine Ratio 8.9 (8-20); Calcium 9.2 mg/dL (8.6-10.3); EGFR African American 116.7 (>60); EGFR Non-African American 96.4 (>60); Potassium 3.5 mmol/L (3.5-5.0)
[2018-12-16] MEDS ORDERED: Metoprolol Tartrate IV* 1 MG/ML 5 ML VIAL IV PRN (07:07)
[2018-12-16] MEDS ORDERED: Vancomycin Trough Check NOTE FOLLOW UP ONE (10:30)
[2018-12-16] MEDS: Rivaroxaban TAB(*) 15 MG PO SCH ×2 (10:42→20:08)
--- NOTE | 2018-12-16 11:18 | PN ---
Progress Note - Progress Note Date of Service: 12/16/18 SOAP: Subjective: Pt seen and chart reviewed; Pt want to leave Objective: Temp Pulse Resp BP Pulse Ox 97.5 F 91 19 113/66 100 12/16/18 03:19 12/16/18 03:19 12/16/18 09:51 12/16/18 03:19 12/16/18 03:19 no exam performed MRSA Assessment: Surgical site infection Plan: wound care- packing for now; if pt leaves AMA, remove packing and apply antibiotic ointment f/u with his surgeon- if unable, f/u at wound center recall prn
[2018-12-16] MEDS: Vancomycin(*) 1,000 MG in NS 0.9% 250 ML* 250 ML IVPB SCH ×2 (12:19→23:04)
--- NOTE | 2018-12-16 14:02 | PN ---
Subjective Date of Service: 12/16/18 Interval History: Mr. Hernandes feels fine this morning. He is frustrated to still be in the hospital. He does not understand why he cannot go home on oral antibiotics. Denies CP, SOB, N/V. Ambulating independently in his room. Nursing reports agitation. He has been requiring a safety monitor as he is an elopement risk. Family History: Unchanged from Admission Social History: Unchanged from Admission Past Medical History: Unchanged from Admission Objective Active Medications: Acetaminophen (Tylenol Tab*) 650 mg PO Q4H PRN FEVER/PAIN Albuterol (Ventolin Hfa Inhaler*) 2 puff INH Q6H PRN SHORTNESS OF BREATH Diazepam (Valium Tab(*)) 5 mg PO Q8H PRN ANXIETY Diltiazem HCl (Cardizem Cd Cap*) 120 mg PO QAM [facility] Vancomycin HCl 1,000 mg/ (Sodium Chloride) 250 mls @ 166.667 mls/hr IVPB Q12H [facility] Melatonin (Melatonin) 3 mg PO BEDTIME PRN SLEEP Metoprolol Tartrate (Lopressor Iv*) 5 mg IV Q6H PRN HEART RATE Rivaroxaban (Xarelto(*)) 15 mg PO BID [facility] Vital Signs - 8 hr 12/16/18 12/16/18 12/16/18 07:00 08:00 09:51 Temperature 97.9 F Pulse Rate 82 Respiratory Rate Blood Pressure 151/90 (mmHg) O2 Sat by Pulse 100 Oximetry Oxygen Devices in Use Now: None Appearance: Elderly male sitting in chair in NAD Eyes: No Scleral Icterus Ears/Nose/Mouth/Throat: Mucous Membranes Moist Neck: NL Appearance and Movements; NL JVP, Trachea Midline Respiratory: Symmetrical Chest Expansion and Respiratory Effort, Clear to Auscultation Cardiovascular: NL Sounds; No Murmurs; No JVD, - - Irregular Abdominal: NL Sounds; No Tenderness; No Distention Extremities: - - +1 BLE Skin: - - Right hip wound with packing and dressing intact Neurological: - - Oriented to self and place Lines/Tubes/Other Access: Clean, Dry and Intact Peripheral IV Nutrition: Taking PO's Result Diagrams: 12/15/18 05:20 12/16/18 05:55 Assess/Plan/Problems-Billing Assessment: Mr. Hernandes is a 73 yo M with PMH of HTN, afib, DM2, HLD, lung cancer, and RLE sarcoma s/p resection; who was sent to the ED by his PCP for concern for DVT and was additionally found to have right hip cellulitis. - Patient Problems (1) Cellulitis of right hip Code(s): L03.115 - CELLULITIS OF RIGHT LOWER LIMB Comment: - S/p sarcoma resection in September, now with infected surgical site - Was on Bactrim outpatient; failed outpatient therapy - CT shows 5x5x9 cm abscess with cellutlitis, myositis, and fasciitis - Wound culture growing MRSA - Appreciate ID consult; recommends CT, Zosyn, vanco, possible debridement - Appreciate Surgery consult; recommends abx, packing and gauze dressing - Continue vanco (2) DVT (deep venous thrombosis) Code(s): I82.409 - ACUTE EMBOLISM AND THOMBOS UNSP DEEP VN UNSP LOWER EXTREMITY Comment: - US shows occlusive RLE DVT - Has been on Coumadin, intermittently subtherapeutic - Previous provider spoke with Hematology who recommended starting a NOAC as the patient is unable to self-administer Lovenox - Continue Xarelto (3) Afib Code(s): I48.91 - UNSPECIFIED ATRIAL FIBRILLATION Comment: - Rate controlled - D/c tele as it is contributing to agitation - Continue diltiazem, Xarelto (4) Diabetes mellitus Code(s): E11.9 - TYPE 2 DIABETES MELLITUS WITHOUT COMPLICATIONS Comment: - Previously diet controlled - A1c 5.5%, so not an active issue (5) HTN (hypertension) Code(s): I10 - ESSENTIAL (PRIMARY) HYPERTENSION Comment: - Slightly hypertensive, SBP 110-150s - Continue diltiazem (6) Anxiety Code(s): F41.9 - ANXIETY DISORDER, UNSPECIFIED Comment: - Continue diazepam (7) DVT prophylaxis Comment: - Xarelto (8) Full code status Code(s): Z78.9 - OTHER SPECIFIED HEALTH STATUS Comment: Status and Disposition: Inpatient. Lacks capacity to make his own medical decisions and cannot leave AMA. Anticipate d/c home when medically stable, timeframe unknown. Attending: Waqar Carty
[2018-12-16] MEDS ORDERED: NS 0.9% 250 ML* 250 ML ONE (20:01)
[2018-12-17] MEDS: Diazepam TAB(*) 5 MG PO PRN ×3 (01:43→21:05)
[2018-12-17] MEDS: Acetaminophen TAB* 325 MG PO PRN (05:29)
[2018-12-17 07:43] LABS: BUN/Creatinine Ratio 9.2 (8-20); Calcium 9.5 mg/dL (8.6-10.3); EGFR Non-African American 100.8 (>60); Potassium 3.6 mmol/L (3.5-5.0)
[2018-12-17] MEDS: Rivaroxaban TAB(*) 15 MG PO SCH ×2 (09:32→21:04)
[2018-12-17] MEDS: Diltiazem CD CAP* 120 MG PO SCH (09:33)
--- NOTE | 2018-12-17 11:43 | PN ---
Subjective Date of Service: 12/17/18 Interval History: Patient wants to go back home. He states it is just to visit, get clothes, pay his rent. He does not know when his rent is due. He states his thigh wound is OK. Then he states the nurse removed several worms from the wound yesterday. He wears compression hose and these are dirty and in laundry. Will need a 2nd pair. Family History: Unchanged from Admission Social History: Unchanged from Admission Past Medical History: Unchanged from Admission Objective Active Medications: Acetaminophen (Tylenol Tab*) 650 mg PO Q4H PRN PRN Reason: FEVER/PAIN Last Admin: 12/17/18 05:29 Dose: 650 mg Albuterol (Ventolin Hfa Inhaler*) 2 puff INH Q6H PRN PRN Reason: SHORTNESS OF BREATH Diazepam (Valium Tab(*)) 5 mg PO Q8H PRN PRN Reason: ANXIETY Last Admin: 12/17/18 01:43 Dose: 5 mg Diltiazem HCl (Cardizem Cd Cap*) 120 mg PO QAM [facility] Last Admin: 12/17/18 09:33 Dose: 120 mg Vancomycin HCl 1,000 mg/ (Sodium Chloride) 250 mls @ 166.667 mls/hr IVPB Q12H [facility] Last Admin: 12/16/18 23:04 Dose: 166.667 mls/hr Melatonin (Melatonin) 3 mg PO BEDTIME PRN PRN Reason: SLEEP Last Admin: 12/15/18 20:44 Dose: 3 mg Metoprolol Tartrate (Lopressor Iv*) 5 mg IV Q6H PRN PRN Reason: HEART RATE Last Admin: 12/16/18 07:20 Dose: 5 mg Rivaroxaban (Xarelto(*)) 15 mg PO BID [facility] Stop: 01/04/19 21:01 Last Admin: 12/17/18 09:32 Dose: 15 mg Vital Signs - 8 hr 12/17/18 12/17/18 12/17/18 04:16 07:00 08:00 Temperature 36.3 C Respiratory Rate Blood Pressure 146/76 (mmHg) O2 Sat by Pulse 100 Oximetry Oxygen Devices in Use Now: None Appearance: alert, conversant Eyes: No Scleral Icterus Neck: NL Appearance and Movements; NL JVP Respiratory: Symmetrical Chest Expansion and Respiratory Effort, Clear to Auscultation Cardiovascular: NL Sounds; No Murmurs; No JVD, RRR, - - tachy Extremities: - - 2+ edema bilat LE Skin: - - dressing RT groin, not taken down, minimal erythema surrounds Lines/Tubes/Other Access: Clean, Dry and Intact Peripheral IV Nutrition: Taking PO's Result Diagrams: 12/15/18 05:20 12/17/18 06:52 Microbiology and Other Data: Microbiology 12/15/18 17:20 Skin and Soft Tissue MRSA/MSSA (PCR - Final Hip Right Mrsa Positive S.aureus Positive Gram Stain - Final Wound Culture - Final MRSA 12/14/18 20:12 Skin and Soft Tissue MRSA/MSSA (PCR - Final Thigh Right Mrsa Positive S.aureus Positive Gram Stain - Final Wound Culture - Final MRSA Assess/Plan/Problems-Billing Assessment: Mr. Hernandes is a 73 yo M with PMH of HTN, afib, DM2, HLD, lung cancer, and RLE sarcoma s/p resection; who was sent to the ED by his PCP for concern for DVT and was additionally found to have right hip cellulitis. - Patient Problems (1) Cellulitis of right hip Current Visit: Yes Status: Acute Priority: High Code(s): L03.115 - CELLULITIS OF RIGHT LOWER LIMB SNOMED Code(s): 18588150285893759 Comment: - S/p sarcoma resection in September, now with infected surgical site - CT shows 5x5x9 cm abscess with cellutlitis, myositis, and fasciitis - Wound culture growing MRSA - Appreciate ID consult; recommends CT, Zosyn, vanco, possible debridement - Appreciate Surgery consult; recommends abx, packing and gauze dressing (2) DVT (deep venous thrombosis) Current Visit: Yes Status: Acute Priority: Medium Code(s): I82.409 - ACUTE EMBOLISM AND THOMBOS UNSP DEEP VN UNSP LOWER EXTREMITY SNOMED Code(s): 653315544 Comment: - using TEDS may help prevent post-phlebitic syndrome - US shows occlusive peroneal DVT - Continue Xarelto (3) Diabetes mellitus Current Visit: Yes Status: Acute Priority: Low Code(s): E11.9 - TYPE 2 DIABETES MELLITUS WITHOUT COMPLICATIONS SNOMED Code(s): 04277674 Comment: - Previously diet controlled - A1c 5.5%, so not an active issue (4) Afib Current Visit: No Status: Chronic Priority: Medium Code(s): I48.91 - UNSPECIFIED ATRIAL FIBRILLATION SNOMED Code(s): 10821010 Comment: - Rate controlled - Continue diltiazem, Xarelto Status and Disposition: Inpatient. Lacks capacity to make his own medical decisions and cannot leave AMA. Anticipate d/c home when medically stable, timeframe unknown.
--- NOTE | 2018-12-17 11:46 | PN ---
Progress Note - Progress Note Date of Service: 12/17/18 SOAP: Subjective: [] no complaints, walking in [place] Objective: [] Temp Pulse Resp BP Pulse Ox 97.3 F 54 19 146/76 100 12/17/18 07:00 12/17/18 03:00 12/17/18 08:00 12/17/18 07:00 12/17/18 07:00 Laboratory Last Values WBC 5.4 10^3/uL (3.5-10.8) 12/15/18 05:20 RBC 3.72 10^6 /uL (4.18-5.48) L 12/15/18 05:20 Hgb 11.3 g/dL (14.0-18.0) L 12/15/18 05:20 Hct 34 % (42-52) L 12/15/18 05:20 MCV 91 fL (80-94) 12/15/18 05:20 MCH 30 pg (27-31) 12/15/18 05:20 MCHC 34 g/dL (31-36) 12/15/18 05:20 RDW 14 % (10-15) 12/15/18 05:20 Plt Count 279 10^3/uL (150-450) 12/15/18 05:20 MPV 7.5 fL (7.4-10.4) 12/15/18 05:20 Neut % (Auto) 71.5 % 12/15/18 05:20 Lymph % (Auto) 14.4 % 12/15/18 05:20 [place] % (Auto) 8.2 % 12/15/18 05:20 Eos % (Auto) 5.1 % 12/15/18 05:20 Baso % (Auto) 0.8 % 12/15/18 05:20 Absolute Neuts (auto) 3.9 10^3/ul (1.5-7.7) 12/15/18 05:20 Absolute Lymphs (auto) 0.8 10^3/ul (1.0-4.8) L 12/15/18 05:20 Absolute Monos (auto) 0.4 10^3/ul (0-0.8) 12/15/18 05:20 Absolute Eos (auto) 0.3 10^3/ul (0-0.6) 12/15/18 05:20 Absolute Basos (auto) 0.0 10^3/ul (0-0.2) 12/15/18 05:20 Absolute Nucleated RBC 0.0 10^3/ul 12/15/18 05:20 Nucleated RBC % 0.0 12/15/18 05:20 INR (Anticoag Therapy) 2.23 (0.82-1.09) H 12/14/18 18:17 APTT 43.9 seconds (26.0-38.0) H 12/14/18 18:17 Sodium 140 mmol/L (135-145) 12/17/18 06:52 Potassium 3.6 mmol/L (3.5-5.0) 12/17/18 06:52 Chloride 103 mmol/L (101-111) 12/17/18 06:52 Carbon Dioxide 30 mmol/L (22-32) 12/17/18 06:52 Anion Gap 7 mmol/L (2-11) 12/17/18 06:52 BUN 7 mg/dL (6-24) 12/17/18 06:52 Creatinine 0.76 mg/dL (0.67-1.17) 12/17/18 06:52 Est GFR ( Amer) 122.0 (>60) 12/17/18 06:52 Est GFR (Non-Af Amer) 100.8 (>60) 12/17/18 06:52 BUN/Creatinine Ratio 9.2 (8-20) 12/17/18 06:52 Glucose 116 mg/dL (70-100) H 12/17/18 06:52 Hemoglobin A1c 5.5 % (4.0-5.6) 12/15/18 05:20 Calcium 9.5 mg/dL (8.6-10.3) 12/17/18 06:52 Total Bilirubin 0.50 mg/dL (0.2-1.0) 12/14/18 18:17 AST 15 U/L (13-39) 12/14/18 18:17 ALT 9 U/L (7-52) 12/14/18 18:17 Alkaline Phosphatase 78 U/L (34-104) 12/14/18 18:17 C-Reactive Protein 54.22 mg/L (<8.01) H 12/14/18 18:17 Total Protein 6.8 g/dL (6.4-8.9) 12/14/18 18:17 Albumin 3.6 g/dL (3.2-5.2) 12/14/18 18:17 Globulin 3.2 g/dL (2-4) 12/14/18 18:17 Albumin/Globulin Ratio 1.1 (1-3) 12/14/18 18:17 Vancomycin Trough 10.6 mcg/mL 12/16/18 10:39 refused exam Assessment: []SSI Plan: []cont current tx plan
[2018-12-17] MEDS: Vancomycin(*) 1,000 MG in NS 0.9% 250 ML* 250 ML IVPB SCH (12:27)
[2018-12-18] MEDS: Vancomycin(*) 1,000 MG in NS 0.9% 250 ML* 250 ML IVPB SCH ×3 (00:06→22:59)
[2018-12-18] MEDS: Diazepam TAB(*) 5 MG PO PRN ×3 (05:27→19:32)
[2018-12-18 07:04] LABS: ABS Basophils 0.1 10^3/ul (0-0.2); ABS Eosinophils 0.3 10^3/ul (0-0.6); ABS Lymphocytes 0.7 10^3/ul (1.0-4.8); ABS Monocytes 0.4 10^3/ul (0-0.8); ABS Neutrophils 3.5 10^3/ul (1.5-7.7); Eosinophil % 5.3 %; Hematocrit 35 % (42-52); Hemoglobin 12.2 g/dL (14.0-18.0); Lymphocyte % 14.7 %; Mean Corpuscular HGB Conc 35 g/dL (31-36); Mean Corpuscular Hemoglobin 31 pg (27-31); Mean Corpuscular Volume 90 fL (80-94); Mean Platelet Volume 7.1 fL (7.4-10.4); Platelet Count 362 10^3/uL (150-450); Red Blood Count 3.92 10^6 /uL (4.18-5.48); Red Cell Distribution Width 14 % (10-15)
[2018-12-18 07:22] LABS: Calcium 9.5 mg/dL (8.6-10.3); Potassium 3.6 mmol/L (3.5-5.0)
[2018-12-18] MEDS: Rivaroxaban TAB(*) 15 MG PO SCH ×2 (08:31→19:33)
[2018-12-18] MEDS: Diltiazem CD CAP* 120 MG PO SCH (08:31)
[2018-12-18] MEDS: Acetaminophen TAB* 325 MG PO PRN ×2 (11:29→16:18)
--- NOTE | 2018-12-18 16:57 | PN ---
Subjective Date of Service: 12/18/18 Interval History: Patient has no complaints. Earlier he refused exam by Dr. Escoto, but he denies this now. He wants to go home "and get some clothes." He says a friend is in another room on the floor. Family History: Unchanged from Admission Social History: Unchanged from Admission Past Medical History: Unchanged from Admission Objective Active Medications: Acetaminophen (Tylenol Tab*) 650 mg PO Q4H PRN PRN Reason: FEVER/PAIN Last Admin: 12/18/18 16:18 Dose: 650 mg Albuterol (Ventolin Hfa Inhaler*) 2 puff INH Q6H PRN PRN Reason: SHORTNESS OF BREATH Diazepam (Valium Tab(*)) 5 mg PO Q6H PRN PRN Reason: ANXIETY Last Admin: 12/18/18 12:20 Dose: 5 mg Diltiazem HCl (Cardizem Cd Cap*) 120 mg PO QAM [facility] Last Admin: 12/18/18 08:31 Dose: 120 mg Vancomycin HCl 1,000 mg/ (Sodium Chloride) 250 mls @ 166.667 mls/hr IVPB Q12H [facility] Last Admin: 12/18/18 12:22 Dose: 166.667 mls/hr Melatonin (Melatonin) 3 mg PO BEDTIME PRN PRN Reason: SLEEP Last Admin: 12/15/18 20:44 Dose: 3 mg Metoprolol Tartrate (Lopressor Iv*) 5 mg IV Q6H PRN PRN Reason: HEART RATE Last Admin: 12/16/18 07:20 Dose: 5 mg Pharmacy Consult (Vancomycin Per Pharmacy*) 1 note FOLLOW UP . PRN PRN Reason: PER PROTOCOL Rivaroxaban (Xarelto(*)) 15 mg PO BID [facility] Stop: 01/04/19 21:01 Last Admin: 12/18/18 08:31 Dose: 15 mg Vital Signs - 8 hr 12/18/18 12/18/18 12/18/18 11:10 12:20 14:20 Temperature 36.5 C Pulse Rate 100 Respiratory 16 18 18 Rate Blood Pressure 132/87 (mmHg) O2 Sat by Pulse 99 Oximetry 12/18/18 16:00 Temperature Pulse Rate 62 Respiratory Rate Blood Pressure 166/66 (mmHg) O2 Sat by Pulse 95 Oximetry Oxygen Devices in Use Now: None Appearance: alert, no distress Eyes: No Scleral Icterus Ears/Nose/Mouth/Throat: NL Teeth, Lips, Gums Neck: NL Appearance and Movements; NL JVP Respiratory: Symmetrical Chest Expansion and Respiratory Effort, Clear to Auscultation Cardiovascular: NL Sounds; No Murmurs; No JVD Abdominal: NL Sounds; No Tenderness; No Distention Skin: - - dressing not taken down Neurological: - - oriented to place, person Lines/Tubes/Other Access: Clean, Dry and Intact Peripheral IV Nutrition: Taking PO's Result Diagrams: 12/18/18 06:47 12/18/18 06:47 Microbiology and Other Data: Microbiology 12/15/18 17:20 Hip Right Skin and Soft Tissue MRSA/MSSA (PCR - Final 12/15/18 17:20 Hip Right Wound Culture - Final Mrsa Positive S.aureus Positive MRSA 12/14/18 20:12 Thigh Right Skin and Soft Tissue MRSA/MSSA (PCR - Final 12/14/18 20:12 Thigh Right Wound Culture - Final Mrsa Positive S.aureus Positive MRSA Assess/Plan/Problems-Billing Assessment: Mr. Hernandes is a 73 yo M with PMH of HTN, afib, DM2, HLD, lung cancer, and RLE sarcoma s/p resection; who was sent to the ED by his PCP for concern for DVT and was additionally found to have right hip cellulitis. - Patient Problems (1) Cellulitis of right hip Current Visit: Yes Status: Acute Priority: High Code(s): L03.115 - CELLULITIS OF RIGHT LOWER LIMB SNOMED Code(s): 37377578180019055 Comment: - S/p sarcoma resection in September, now with infected surgical site - Wound culture growing MRSA - Will have recheck by ID consult tomorrow, begin discharge planning - Appreciate Surgery consult; recommends abx, packing and gauze dressing (2) DVT (deep venous thrombosis) Current Visit: Yes Status: Acute Priority: Medium Code(s): I82.409 - ACUTE EMBOLISM AND THOMBOS UNSP DEEP VN UNSP LOWER EXTREMITY SNOMED Code(s): 313415361 Comment: - using TEDS - US shows occlusive peroneal DVT RLE - Continue Xarelto (3) Diabetes mellitus Current Visit: Yes Status: Acute Priority: Low Code(s): E11.9 - TYPE 2 DIABETES MELLITUS WITHOUT COMPLICATIONS SNOMED Code(s): 47791752 Comment: - Previously diet controlled - A1c 5.5%, so not an active issue (4) Afib Current Visit: No Status: Chronic Priority: Medium Code(s): I48.91 - UNSPECIFIED ATRIAL FIBRILLATION SNOMED Code(s): 34650088 Comment: - Rate controlled - Continue diltiazem, Xarelto (5) Confusion Current Visit: No Status: Acute Priority: Medium Code(s): R41.0 - DISORIENTATION, UNSPECIFIED SNOMED Code(s): 872751161 Comment: -Patient may need to be in adult home or SNF-rehab after discharge -Appears unsafe to be home alone -Psychiatry consulted, decided does not have capacity to leave hospital AMA. -Reviewed medical record, has has negative MRI brain, TSH, RPR, etc in last year. Status and Disposition: Inpatient. Lacks capacity to make his own medical decisions and cannot leave AMA. Anticipate d/c home when medically stable, timeframe unknown.
[2018-12-19 06:28] LABS: EGFR African American 129.8 (>60); EGFR Non-African American 107.3 (>60)
[2018-12-19] MEDS: Acetaminophen TAB* 325 MG PO PRN ×3 (06:33→20:29)
[2018-12-19] MEDS: Diazepam TAB(*) 5 MG PO PRN ×3 (06:33→20:29)
[2018-12-19] MEDS: Albuterol HFA INHALER* 8 gm MDI INH PRN ×3 (06:48→21:56)
[2018-12-19] MEDS: Diltiazem CD CAP* 120 MG PO SCH (09:49)
[2018-12-19] MEDS: Rivaroxaban TAB(*) 15 MG PO SCH ×2 (09:49→20:29)
[2018-12-19] MEDS: Vancomycin(*) 1,000 MG in NS 0.9% 250 ML* 250 ML IVPB SCH ×2 (11:24→23:18)
--- NOTE | 2018-12-19 15:29 | PN ---
Progress Note - Progress Note Date of Service: 12/19/18 SOAP: Subjective: CC: right leg infection HPI: 73 year old man with recent right thigh sarcoma resection with persistent wound in right thigh, admitted with cellulitis and abscess. Having dressing and wound packing changes daily. Previous pain with weight bearing is resolved. No fever, chills, or diarrhea. Objective: Vital Signs Temp 36.6 C 12/19/18 11:50 Pulse 112 12/19/18 11:50 Resp 18 12/19/18 14:04 BP 116/85 12/19/18 11:50 Pulse Ox 99 12/19/18 11:50 Intake & Output 12/18/18 12/19/18 12/19/18 18:59 06:59 18:59 Intake Total 720 570 Output Total 0 Balance 720 570 Intake: Oral 720 570 Output: Urine 0 Other: Estimated Void Medium Date of Last Bowel unknown Movement # Bowel Movements 0 # Voids 3 Gen:awake, no distress HEENT: no thrush MSK: in the right thigh incision there is a 2 mm opening with packing material present, some purulent drainage, no surrounding erythema Laboratory Results - last 24 hr 12/19/18 12/19/18 05:22 10:32 BUN 10 Creatinine 0.72 Est GFR ( Amer) 129.8 Est GFR (Non-Af Amer) 107.3 Vancomycin Trough 13.4 Assessment: 1. MRSA cellulitis, myositis, abscess right thigh; adjacent to proximal femur, acute osteomyelitis 2. resection sarcoma right thigh 3. cephalexin allergy Plan: vancomycin goal tr 10-15 day 11/21 with weekly cbc, cmp, crp, vancomycin trough
--- NOTE | 2018-12-19 16:08 | PN ---
Subjective Date of Service: 12/19/18 Interval History: Still wants to return home to get clothes Does not have capacity today to leave hospital Denies pain in or around area of myositis/cellulitis Family History: Unchanged from Admission Social History: Unchanged from Admission Past Medical History: Unchanged from Admission Objective Active Medications: Acetaminophen (Tylenol Tab*) 650 mg PO Q4H PRN PRN Reason: FEVER/PAIN Last Admin: 12/19/18 12:51 Dose: 650 mg Albuterol (Ventolin Hfa Inhaler*) 2 puff INH Q6H PRN PRN Reason: SHORTNESS OF BREATH Last Admin: 12/19/18 06:48 Dose: 2 puff Diazepam (Valium Tab(*)) 5 mg PO Q6H PRN PRN Reason: ANXIETY Last Admin: 12/19/18 11:23 Dose: 5 mg Diltiazem HCl (Cardizem Cd Cap*) 120 mg PO QAM [facility] Last Admin: 12/19/18 09:49 Dose: 120 mg Vancomycin HCl 1,000 mg/ (Sodium Chloride) 250 mls @ 166.667 mls/hr IVPB Q12H [facility] Last Admin: 12/19/18 11:24 Dose: 166.667 mls/hr Melatonin (Melatonin) 3 mg PO BEDTIME PRN PRN Reason: SLEEP Last Admin: 12/15/18 20:44 Dose: 3 mg Metoprolol Tartrate (Lopressor Iv*) 5 mg IV Q6H PRN PRN Reason: HEART RATE Last Admin: 12/16/18 07:20 Dose: 5 mg Pharmacy Consult (Vancomycin Per Pharmacy*) 1 note FOLLOW UP . PRN PRN Reason: PER PROTOCOL Rivaroxaban (Xarelto(*)) 15 mg PO BID [facility] Stop: 01/04/19 21:01 Last Admin: 12/19/18 09:49 Dose: 15 mg Vital Signs - 8 hr 12/19/18 12/19/18 12/19/18 09:00 10:54 11:23 Temperature 97.5 F Pulse Rate 72 Respiratory 16 18 16 Rate Blood Pressure 145/71 (mmHg) O2 Sat by Pulse 99 Oximetry 12/19/18 12/19/18 11:50 14:04 Temperature 97.9 F Pulse Rate 112 Respiratory 16 18 Rate Blood Pressure 116/85 (mmHg) O2 Sat by Pulse 99 Oximetry Oxygen Devices in Use Now: None Appearance: NAD, ambulating around the unit Eyes: No Scleral Icterus, PERRLA Ears/Nose/Mouth/Throat: NL Teeth, Lips, Gums, Clear Oropharnyx Neck: NL Appearance and Movements; NL JVP, Trachea Midline Respiratory: Symmetrical Chest Expansion and Respiratory Effort, Clear to Auscultation Cardiovascular: NL Sounds; No Murmurs; No JVD, RRR Abdominal: NL Sounds; No Tenderness; No Distention, No Hepatosplenomegaly Lymphatic: No Cervical Adenopathy Neurological: Alert and Oriented x 3 Result Diagrams: 12/18/18 06:47 12/19/18 05:22 Microbiology and Other Data: Microbiology 12/15/18 17:20 Hip Right Skin and Soft Tissue MRSA/MSSA (PCR - Final 12/15/18 17:20 Hip Right Wound Culture - Final Mrsa Positive S.aureus Positive MRSA 12/14/18 20:12 Thigh Right Skin and Soft Tissue MRSA/MSSA (PCR - Final 12/14/18 20:12 Thigh Right Wound Culture - Final Mrsa Positive S.aureus Positive MRSA Assess/Plan/Problems-Billing Assessment: Mr. Hernandes is a 73 yo M with PMH of HTN, afib, DM2, HLD, lung cancer, and RLE sarcoma s/p resection; who was sent to the ED by his PCP for concern for DVT and was additionally found to have right thigh cellulitis/myositis/abscess - Patient Problems (1) Cellulitis of right thigh Comment: s/p sarcoma resection in September now with cellulitios, myositis and possible underlying abscess +MRSA Daily packing and dressing change Vancomycin goal 10-15 (2) Afib Comment: - Rate controlled - Continue diltiazem, Xarelto (3) Confusion Comment: -Suspect patient may need to be in adult home or SNF-rehab after discharge -Will not be able to admin IV abx at home -Psychiatry consulted, decided does not have capacity to leave hospital AMA. - negative MRI brain, TSH, RPR, all with in the last year. (4) Diabetes mellitus Comment: - Previously diet controlled - A1c 5.5% (5) DVT (deep venous thrombosis) Comment: xarelto 15mg x 21 days then 20mg daily - US shows occlusive peroneal DVT RLE Status and Disposition: Inpatient. Lacks capacity to make his own medical decisions and cannot leave AMA. Anticipate d/c to [facility] when ready
[2018-12-20] MEDS: Acetaminophen TAB* 325 MG PO PRN ×2 (04:44→14:07)
[2018-12-20] MEDS: Diltiazem CD CAP* 120 MG PO SCH (08:24)
[2018-12-20] MEDS: Rivaroxaban TAB(*) 15 MG PO SCH ×2 (08:24→20:12)
[2018-12-20] MEDS: Vancomycin(*) 1,000 MG in NS 0.9% 250 ML* 250 ML IVPB SCH ×2 (11:41→22:36)
--- NOTE | 2018-12-20 15:09 | PN ---
Subjective Date of Service: 12/20/18 Interval History: OOB walking in [place] No complaints Denies pain Family History: Unchanged from Admission Social History: Unchanged from Admission Past Medical History: Unchanged from Admission Objective Active Medications: Acetaminophen (Tylenol Tab*) 650 mg PO Q4H PRN PRN Reason: FEVER/PAIN Last Admin: 12/20/18 14:07 Dose: 650 mg Albuterol (Ventolin Hfa Inhaler*) 2 puff INH Q6H PRN PRN Reason: SHORTNESS OF BREATH Last Admin: 12/19/18 21:56 Dose: 2 puff Diazepam (Valium Tab(*)) 5 mg PO Q6H PRN PRN Reason: ANXIETY Last Admin: 12/19/18 20:29 Dose: 5 mg Diltiazem HCl (Cardizem Cd Cap*) 120 mg PO QAM [facility] Last Admin: 12/20/18 08:24 Dose: 120 mg Vancomycin HCl 1,000 mg/ (Sodium Chloride) 250 mls @ 166.667 mls/hr IVPB Q12H [facility] Last Admin: 12/20/18 11:41 Dose: 166.667 mls/hr Melatonin (Melatonin) 3 mg PO BEDTIME PRN PRN Reason: SLEEP Last Admin: 12/15/18 20:44 Dose: 3 mg Metoprolol Tartrate (Lopressor Iv*) 5 mg IV Q6H PRN PRN Reason: HEART RATE Last Admin: 12/16/18 07:20 Dose: 5 mg Pharmacy Consult (Vancomycin Per Pharmacy*) 1 note FOLLOW UP . PRN PRN Reason: PER PROTOCOL Pharmacy Profile Note (Vancomycin Trough Check) 1 note FOLLOW UP 1030 ONE Stop: 12/22/18 10:31 Rivaroxaban (Xarelto(*)) 15 mg PO BID [facility] Stop: 01/04/19 21:01 Last Admin: 12/20/18 08:24 Dose: 15 mg Vital Signs - 8 hr 12/20/18 08:05 Temperature 97.3 F Pulse Rate 99 Respiratory 16 Rate Blood Pressure 137/68 (mmHg) O2 Sat by Pulse 100 Oximetry Oxygen Devices in Use Now: None Appearance: NAD Eyes: No Scleral Icterus, PERRLA Ears/Nose/Mouth/Throat: NL Teeth, Lips, Gums, Clear Oropharnyx Neck: NL Appearance and Movements; NL JVP Respiratory: Symmetrical Chest Expansion and Respiratory Effort, Clear to Auscultation Cardiovascular: NL Sounds; No Murmurs; No JVD, RRR Abdominal: NL Sounds; No Tenderness; No Distention Lymphatic: No Cervical Adenopathy Neurological: Alert and Oriented x 3 Result Diagrams: 12/18/18 06:47 12/19/18 05:22 Microbiology and Other Data: Microbiology 12/15/18 17:20 Hip Right Skin and Soft Tissue MRSA/MSSA (PCR - Final 12/15/18 17:20 Hip Right Wound Culture - Final Mrsa Positive S.aureus Positive MRSA 12/14/18 20:12 Thigh Right Skin and Soft Tissue MRSA/MSSA (PCR - Final 12/14/18 20:12 Thigh Right Wound Culture - Final Mrsa Positive S.aureus Positive MRSA Assess/Plan/Problems-Billing Assessment: Mr. Hernandes is a 73 yo M with PMH of HTN, afib, DM2, HLD, lung cancer, and RLE sarcoma s/p resection; who was sent to the ED by his PCP for concern for DVT and was additionally found to have right thigh cellulitis/myositis/abscess - Patient Problems (1) Cellulitis of right thigh Comment: s/p sarcoma resection in September now with cellulitis, myositis and possible underlying abscess +MRSA Daily packing and dressing change Vancomycin goal 10-15 PICC ordered (2) Afib Comment: - Rate controlled - Continue diltiazem, Xarelto (3) Confusion Comment: -Suspect patient may need to be in adult home or SNF-rehab after discharge -Will not be able to admin IV abx at home -Psychiatry consulted, decided does not have capacity to leave hospital AMA. - negative MRI brain, TSH, RPR, all with in the last year. (4) Diabetes mellitus Comment: - Previously diet controlled - A1c 5.5% (5) DVT (deep venous thrombosis) Comment: xarelto 15mg x 21 days then 20mg daily - US shows occlusive peroneal DVT RLE Status and Disposition: Inpatient. Lacks capacity to make his own medical decisions and cannot leave AMA. Anticipate d/c to [facility] when ready
[2018-12-20] MEDS: Albuterol HFA INHALER* 8 gm MDI INH PRN (16:22)
[2018-12-21] MEDS: Acetaminophen TAB* 325 MG PO PRN ×3 (03:21→16:03)
[2018-12-21] MEDS: Diazepam TAB(*) 5 MG PO PRN ×3 (05:25→22:37)
[2018-12-21] MEDS: Diltiazem CD CAP* 120 MG PO SCH (09:05)
[2018-12-21] MEDS: Rivaroxaban TAB(*) 15 MG PO SCH ×2 (09:05→22:37)
--- NOTE | 2018-12-21 10:13 | PN ---
Progress Note - Progress Note Date of Service: 12/21/18 SOAP: Subjective: CC: Right leg infection HPI: Mr. 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 S/P bedside I+D, wound packing is being changed daily. Denies fever, chills, shortness of breath , nausea, vomiting, diarrhea, or urinary symptoms. Pain in the right thigh has resolved. Objective: Vital Signs - 8 hr 12/21/18 12/21/18 03:15 05:25 Temperature 98.6 F Pulse Rate 86 Respiratory 20 20 Rate Blood Pressure 136/74 (mmHg) O2 Sat by Pulse 98 Oximetry Physical Exam: General: NAD, sitting up on the side of the bed Neurological: Alert and Oriented HEENT: Moist MM, no thrush Cardiovascular: Heart rate regular Respiratory: Lung sounds clear bilateral Abdominal: Bowel sounds present; ABD soft, non tender and non distended MSK: No tenderness with palpation of the right thigh or hip. Negative log roll on the leg. No pain with palpation or ROM of the right knee Skin: Right thigh with slight erythema, there is an I+D site with packing in place. The packing was removed. The wound was probes with a cotton tipped applicator, this probes about 8 cm towards 12 o'clock. There was serosang/ purulent drainage. There is a small pustule distal to the I+D site Laboratory Last Values WBC 5.0 10^3/uL (3.5-10.8) 12/18/18 06:47 RBC 3.92 10^6 /uL (4.18-5.48) L 12/18/18 06:47 Hgb 12.2 g/dL (14.0-18.0) L 12/18/18 06:47 Hct 35 % (42-52) L 12/18/18 06:47 MCV 90 fL (80-94) 12/18/18 06:47 MCH 31 pg (27-31) 12/18/18 06:47 MCHC 35 g/dL (31-36) 12/18/18 06:47 RDW 14 % (10-15) 12/18/18 06:47 Plt Count 362 10^3/uL (150-450) 12/18/18 06:47 MPV 7.1 fL (7.4-10.4) L 12/18/18 06:47 Neut % (Auto) 70.9 % 12/18/18 06:47 Lymph % (Auto) 14.7 % 12/18/18 06:47 Dickinson % (Auto) 7.9 % 12/18/18 06:47 Eos % (Auto) 5.3 % 12/18/18 06:47 Baso % (Auto) 1.2 % 12/18/18 06:47 Absolute Neuts (auto) 3.5 10^3/ul (1.5-7.7) 12/18/18 06:47 Absolute Lymphs (auto) 0.7 10^3/ul (1.0-4.8) L 12/18/18 06:47 Absolute Monos (auto) 0.4 10^3/ul (0-0.8) 12/18/18 06:47 Absolute Eos (auto) 0.3 10^3/ul (0-0.6) 12/18/18 06:47 Absolute Basos (auto) 0.1 10^3/ul (0-0.2) 12/18/18 06:47 Absolute Nucleated RBC 0.0 10^3/ul 12/18/18 06:47 Nucleated RBC % 0.0 12/18/18 06:47 INR (Anticoag Therapy) 2.23 (0.82-1.09) H 12/14/18 18:17 APTT 43.9 seconds (26.0-38.0) H 12/14/18 18:17 Sodium 140 mmol/L (135-145) 12/18/18 06:47 Potassium 3.6 mmol/L (3.5-5.0) 12/18/18 06:47 Chloride 104 mmol/L (101-111) 12/18/18 06:47 Carbon Dioxide 30 mmol/L (22-32) 12/18/18 06:47 Anion Gap 6 mmol/L (2-11) 12/18/18 06:47 BUN 10 mg/dL (6-24) 12/19/18 05:22 Creatinine 0.72 mg/dL (0.67-1.17) 12/19/18 05:22 Est GFR ( Amer) 129.8 (>60) 12/19/18 05:22 Est GFR (Non-Af Amer) 107.3 (>60) 12/19/18 05:22 BUN/Creatinine Ratio 10.0 (8-20) 12/18/18 06:47 Glucose 110 mg/dL (70-100) H 12/18/18 06:47 Hemoglobin A1c 5.5 % (4.0-5.6) 12/15/18 05:20 Calcium 9.5 mg/dL (8.6-10.3) 12/18/18 06:47 Total Bilirubin 0.50 mg/dL (0.2-1.0) 12/14/18 18:17 AST 15 U/L (13-39) 12/14/18 18:17 ALT 9 U/L (7-52) 12/14/18 18:17 Alkaline Phosphatase 78 U/L (34-104) 12/14/18 18:17 C-Reactive Protein 54.22 mg/L (<8.01) H 12/14/18 18:17 Total Protein 6.8 g/dL (6.4-8.9) 12/14/18 18:17 Albumin 3.6 g/dL (3.2-5.2) 12/14/18 18:17 Globulin 3.2 g/dL (2-4) 12/14/18 18:17 Albumin/Globulin Ratio 1.1 (1-3) 12/14/18 18:17 Vancomycin Trough 13.4 mcg/mL 12/19/18 10:32 Microbiology 12/15/18 17:20 Skin and Soft Tissue MRSA/MSSA (PCR - Final Hip Right Mrsa Positive S.aureus Positive Gram Stain - Final Wound Culture - Final MRSA 12/14/18 20:12 Skin and Soft Tissue MRSA/MSSA (PCR - Final Thigh Right Mrsa Positive S.aureus Positive Gram Stain - Final Wound Culture - Final MRSA Assessment: 1. MRSA cellulitis, myositis, abscess of the right thigh, and acute osteomyelitis. S/P bedside I+D with general surgery. The surrounding erythema is resolving, continues to have seropurulent drainage from the wound. Afebrile and no leukocytosis. 2. 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 3. Cephalexin allergy. Plan: Continue Vancomycin, trough 15-20. Day 7/28. Will need weekly labs while on IV ABX: CBC, CMP, CRP, and vanco trough. Will discuss with general surgery about looking at the wound again to see if it requires further I+D. Will add a CRP to tomorrows labs.
[2018-12-21] MEDS: Vancomycin(*) 1,000 MG in NS 0.9% 250 ML* 250 ML IVPB SCH ×2 (12:28→22:54)
[2018-12-21] MEDS: Albuterol HFA INHALER* 8 gm MDI INH PRN (16:30)
--- NOTE | 2018-12-21 16:51 | PN ---
Subjective Date of Service: 12/21/18 Interval History: [facility] Right thigh is "tender" Anxious because he wants to go outside and walk around (this has been recurring concern for him) Family History: Unchanged from Admission Social History: Unchanged from Admission Past Medical History: Unchanged from Admission Objective Active Medications: Acetaminophen (Tylenol Tab*) 650 mg PO Q4H PRN PRN Reason: FEVER/PAIN Last Admin: 12/21/18 16:03 Dose: 650 mg Albuterol (Ventolin Hfa Inhaler*) 2 puff INH Q6H PRN PRN Reason: SHORTNESS OF BREATH Last Admin: 12/20/18 16:22 Dose: 2 puff Diazepam (Valium Tab(*)) 5 mg PO Q6H PRN PRN Reason: ANXIETY Last Admin: 12/21/18 16:03 Dose: 5 mg Diltiazem HCl (Cardizem Cd Cap*) 120 mg PO QAM [facility] Last Admin: 12/21/18 09:05 Dose: 120 mg Vancomycin HCl 1,000 mg/ (Sodium Chloride) 250 mls @ 166.667 mls/hr IVPB Q12H [facility] Last Admin: 12/21/18 12:28 Dose: 166.667 mls/hr Melatonin (Melatonin) 3 mg PO BEDTIME PRN PRN Reason: SLEEP Last Admin: 12/15/18 20:44 Dose: 3 mg Metoprolol Tartrate (Lopressor Iv*) 5 mg IV Q6H PRN PRN Reason: HEART RATE Last Admin: 12/16/18 07:20 Dose: 5 mg Pharmacy Consult (Vancomycin Per Pharmacy*) 1 note FOLLOW UP . PRN PRN Reason: PER PROTOCOL Pharmacy Profile Note (Vancomycin Trough Check) 1 note FOLLOW UP 1030 ONE Stop: 12/22/18 10:31 Rivaroxaban (Xarelto(*)) 15 mg PO BID [facility] Stop: 01/04/19 21:01 Last Admin: 12/21/18 09:05 Dose: 15 mg Vital Signs - 8 hr 12/21/18 16:03 Respiratory 14 Rate Oxygen Devices in Use Now: None Appearance: NAD, older than stated age Eyes: No Scleral Icterus, PERRLA Ears/Nose/Mouth/Throat: NL Teeth, Lips, Gums, Clear Oropharnyx Neck: NL Appearance and Movements; NL JVP, Trachea Midline Respiratory: Symmetrical Chest Expansion and Respiratory Effort, Clear to Auscultation Cardiovascular: - - IRIR Abdominal: NL Sounds; No Tenderness; No Distention, No Hepatosplenomegaly Lymphatic: No Cervical Adenopathy Extremities: - - 2+ LE edema Skin: - - right thigh with erythema surrounding draining wound Neurological: Alert and Oriented x 3 Result Diagrams: 12/18/18 06:47 12/19/18 05:22 Microbiology and Other Data: Microbiology 12/15/18 17:20 Hip Right Skin and Soft Tissue MRSA/MSSA (PCR - Final 12/15/18 17:20 Hip Right Wound Culture - Final Mrsa Positive S.aureus Positive MRSA 12/14/18 20:12 Thigh Right Skin and Soft Tissue MRSA/MSSA (PCR - Final 12/14/18 20:12 Thigh Right Wound Culture - Final Mrsa Positive S.aureus Positive MRSA Assess/Plan/Problems-Billing Assessment: Mr. Hernandes is a 73 yo M with PMH of HTN, afib, DM2, HLD, lung cancer, and RLE sarcoma s/p resection; who was sent to the ED by his PCP for concern for DVT and was additionally found to have right thigh cellulitis/myositis/abscess - Patient Problems (1) Cellulitis of right thigh Comment: s/p sarcoma resection in September now with cellulitis, myositis and possible underlying abscess +MRSA Daily packing and dressing change Vancomycin goal 10-15 Appreciate ID and surgical assistance Needs PICC but agree with vascular access team that he lacks capacity to consent - HCP unable to be reached today. Vascular access not available again until Tuesday. IR rads available possibly if informed consent obtained (2) Afib Comment: - Rate controlled - Continue diltiazem, Xarelto (3) Confusion Comment: -patient needs to be in adult home or SNF-rehab after discharge -Will not be able to admin IV abx at home -Psychiatry consulted, decided does not have capacity to leave hospital AMA. - negative MRI brain, TSH, RPR, all with in the last year. (4) Diabetes mellitus Comment: - Previously diet controlled - A1c 5.5% (5) DVT (deep venous thrombosis) Comment: xarelto 15mg x 21 days then 20mg daily (day 01/14) - US shows occlusive peroneal DVT RLE Status and Disposition: Inpatient. Lacks capacity to make his own medical decisions and cannot leave AMA. Anticipate d/c to [facility] when ready
[2018-12-21] MEDS: Melatonin 3 MG TAB PO PRN (22:37)
[2018-12-22] MEDS: Diazepam TAB(*) 5 MG PO PRN ×2 (04:57→11:11)
[2018-12-22] MEDS: Acetaminophen TAB* 325 MG PO PRN ×2 (04:57→11:15)
[2018-12-22] MEDS: Diltiazem CD CAP* 120 MG PO SCH (09:43)
[2018-12-22] MEDS: Rivaroxaban TAB(*) 15 MG PO SCH (09:44)
[2018-12-22] MEDS ORDERED: Vancomycin Trough Check NOTE FOLLOW UP ONE (10:30)
[2018-12-22 11:13] VITALS: BP 119/80
[2018-12-22 11:29] LABS: C Reactive Protein 8.09 mg/L (<8.01); EGFR African American 104.4 (>60); EGFR Non-African American 86.3 (>60)
[2018-12-22 11:50] LABS: Vancomycin Trough 14.1 mcg/mL
[2018-12-22] MEDS: Vancomycin(*) 1,000 MG in NS 0.9% 250 ML* 250 ML IVPB SCH (12:20)
--- NOTE | 2018-12-22 14:04 | PN ---
Progress Note - Progress Note Date of Service: 12/22/18 SOAP: Subjective:denies pain R thigh [] Objective:asked by Ni Khan to reassess R thigh wound for possible extension of incision Vital Signs: Temp Pulse Resp BP Pulse Ox 98.0 F 118 16 119/80 100 12/22/18 11:12 12/22/18 11:12 12/22/18 11:12 12/22/18 11:12 12/22/18 11:12 R thigh:lateral aspect with healing linear incision with 1cm opening midportion; this probes in all directions but deepest cephalad for approx 6cm;drainage is serous,no obvious pus;minimal surrounding erythema Irrigated with NS and repacked with 1/2"plain nugauze and covered with 4x4's and abd pad;pt tolerated well [] Assessment:post surgical seroma and MRSA infection;open wound right thigh s/p resection of soft tissue sarcoma 10/19/18 in [place] followed by radiation therapy [] Plan:continue current wound care;would not extend incision now;recommend followup [place] [facility] [place]( consulted 12/15/18)on discharge if not returning for followup with surgeon in [place] []
--- NOTE | 2018-12-22 18:45 | DS ---
DISCHARGE SUMMARY AND ADMISSION TO SWING STATUS NOTE: DATE OF ADMISSION: 12/14/18 DATE OF DISCHARGE TO SWING STATUS: 12/22/18 DISPOSITION: To swing status. CONDITION: On transfer to swing status is stable. PRIMARY DIAGNOSES: 1. Right thigh cellulitis. 2. Myositis. 3. Concern for osteomyelitis. SECONDARY DIAGNOSES: Include: 1. Hypertension. 2. Atrial fibrillation. 3. Hyperlipidemia. 4. Gastroesophageal reflux disease. 5. Anxiety. 6. Diabetes. 7. Obstructive sleep apnea, not on therapy. 8. Sarcoma of the right lower extremity, status post resection. 9. Xqb-sypwv-sbyk lung cancer. 10. Long QT syndrome. MEDICATIONS: Medications at the time of conversion to swing status: 1. Acetaminophen 650 mg every 4 hours as needed. 2. Albuterol HFA 2 puffs every 6 hours as needed. 3. Diazepam 5 mg every 6 hours as needed for anxiety. 4. Diltiazem CD 120 mg in the morning. 5. Melatonin 3 mg at bedtime as needed for insomnia. 6. Metoprolol tartrate 5 mg IV every 6 hours p.r.n. for systolic blood pressure greater than 180. 7. Vancomycin 1250 mg q.12 hours. 8. Xarelto 15 mg twice daily for 21 days, then 20 mg in the evening. PERTINENT IMAGING: Right lower extremity CT, impression: Constellation of findings consistent with cellulitis, myositis, fasciitis, and loculated 5.4 x 5.1 x 9.3 cm abscess collection at the anterolateral skeletal muscle at the proximal right thigh with associated dermal sinus or near dermal extension. Small right hip and moderate right knee joint effusions. No compelling CT findings to indicate osteomyelitis. PERTINENT MICROBIOLOGY: Skin and soft tissue culture from area of right thigh draining sinus is positive for MRSA. HISTORY OF PRESENT ILLNESS AND HOSPITAL COURSE: This is a 73-year-old man with past medical history as outlined in the history of present illness who on the day of admission presented to the hospital after being found with new DVT of right lower extremity of his peroneal vein. On admission, it was also found with cellulitis an area of sarcoma resection of his right thigh and draining sinus as indicated above seen on CAT scan. Above findings were consistent with cellulitis, an area of nonhealing wound where the sarcoma was resected and radiation therapy as well as underlying myositis fasciitis. There was some concern for osteomyelitis. MRI was not performed. He was maintained on vancomycin with good clinical response; however, continued draining sinus. The patient will require at least 4 to 6 weeks of antibiotics in conjunction with ID recommended this followup. Also followed by surgical service, last seen on day of transfer to swing status, who did not recommend further incision or debridement of underlying suspicious collection. Surgical service at this point thought underlying fluid collection was more consistent with seroma status post sarcoma resection and not an abscess. The patient was also seen in consultation with psychiatry services, who did not find the patient to have capacity to leave the hospital against medical advice on 12/15/18. The patient continued to lack capacity at the time of his transfer to swing status on to leave against medical advice. The patient was started on Xarelto on 12/15 and received 15 mg twice daily for 21 days before conversion to 20 mg daily. CONTINUED FOLLOWUP: The patient should: 1. Continue management of right upper thigh wound and follow up with wound care clinic upon discharge. 2. Weekly CMP, CBC, ESR, or CRP and vancomycin trough with a goal of 10 to 15. 3. Follow up with infectious disease services upon discharge. 4. No other specific labs or vitals that are pending at the time of transfer to [facility]. Please see complete medical record for further details throughout this patient' s hospital stay prior to transfer to [facility]. TIME SPENT: Greater than 45 minutes were spent on the transfer of this patient to [facility]. As noted above, please note the patient formally lacks capacity to leave the hospital against medical advice at the time of this dictation. [id number]/[facility] #: [id number] [facility]
[2018-12-23] MEDS ORDERED: Vancomycin(*) 1,250 MG in NS 0.9% 250 ML* 250 ML IVPB SCH (00:30)
[2018-12-24] MEDS ORDERED: Vancomycin Trough Check NOTE FOLLOW UP ONE (12:00)
--- NOTE | 2018-12-26 22:15 | DS ---
CC: Dr. Del Valle; Dr. Farooq; [facility] DISCHARGE SUMMARY: DATE OF ADMISSION: 12/14/18 DATE OF DISCHARGE TO SWING STATUS: 12/22/18 DATE OF DISCHARGE: 12/27/18 CONSULTING INFECTIOUS DISEASE SPECIALIST: Dr. Del Valle. PRIMARY CARE PROVIDER: Dr. Farooq. DISCHARGE DIAGNOSES: 1. Right thigh cellulitis and myositis with concern for possible osteomyelitis. 2. Lower extremity deep venous thrombosis. SECONDARY DIAGNOSES: 1. Hypertension. 2. Atrial fibrillation. 3. Hyperlipidemia. 4. Gastroesophageal reflux disease. 5. Anxiety. 6. Type 2 diabetes. 7. Obstructive sleep apnea, not on therapy. 8. Sarcoma of the right lower extremity, status post resection. 9. Non-small cell lung cancer. 10. Long QT syndrome. MEDICATIONS AT THE TIME OF DISCHARGE: 1. Acetaminophen 650 mg p.o. q.4 hours p.r.n. pain or fever. 2. Albuterol 2 puffs inhaled q.6 hours p.r.n. shortness of breath or wheezing. 3. Diazepam 5 mg p.o. q.6 hours p.r.n. anxiety. 4. Cardizem CD 120 mg p.o. daily. 5. Melatonin 3 mg p.o. at bedtime as needed for insomnia. 6. Vancomycin 1250 mg IV q.12 hours, today is day 10 of . 7. Xarelto 15 mg twice a day for 21 days (started on 12/18/18) and after that convert to 20 mg daily . HOSPITAL COURSE: Mr. Hernandes is a 73-year-old male with a past medical history as stated above, who presented to the emergency room after being found to have a new DVT on the right lower extremity. Jaun kelly was also found to have cellulitis in the area of prior sarcoma resection of his right thigh with dr dorie minaya. There was concern for cellulitis, an area of nonhealing wound as well as underlying my ositis/fasciitis. He was seen by Infectious Disease and their impression is that the patient has MRS A cellulitis, myositis, abscess of the right thigh, and acute osteomyelitis, status post bedside I an d D with General Surgery. The recommendation was to continue vancomycin to complete 28 days, to have weekly CBC, CMP, CRP and vanco trough. For more details about his presentation, I refer you to Dr. Castro's discharge summary from 12/22/18. Of note is the fact that the patient was seen in consultation by Psychiatry and found not to have c apacity to leave the hospital against medical advice and he continued to lack capacity when he was tr ansferred to swing status. While on swing status, the patient had no significant changes in his cond ition and the plan is for him to receive a PICC line so he can continue his treatment. He will need followup with Dr. Del Valle as an outpatient. Surgery recommended to continue current wound care with normal saline irrigation, packing in the woun d and covering with 4x4s. 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 PHYSICAL EXAMINATION: Vital Signs: Temperature 97.3, heart rate is 83, respiratory rate is 16, oxyg en saturation 100% on room air, blood pressure is 148/83. General: The patient is an elderly gentle man, sitting up in a chair, in no acute distress. CVS: Normal S1, S2. Irregularly irregular. Ches t: Breath sounds present bilaterally with no added sounds. Neuro: The patient is alert and oriente d x3. Able to move all 4 extremities. Extremities: There is 2+ edema on the right lower extremity, but erythema has improved. DIET: Heart-healthy diet. ACTIVITIES: As tolerated. DISPOSITION: To [facility]. STATUS WHILE IN THE HOSPITAL: Swing status. CONDITION: Fair. Please keep in mind that this is a summarized version of this patient's complex hospital stay. If yo u need more information, please feel free to call me at or please obtain full medical r ecords. TIME SPENT: Approximately 50 minutes was spent to complete this discharge. [id number]/CPS #: [id number]
== END 2018-12-22 16:30 | disposition swing bed (61) | DRG 863 ==
LOC: ED 17:04 → MED 21:05 → OBSVTOIN 12-15 14:00
PROVIDERS: ADMIT Hospitalist; ATTEND Internal Medicine
DX: T81.49XA Infection following a procedure, other surgical site, initial encounter (principal); L03.115 Cellulitis of right lower limb; I82.401 Acute embolism and thrombosis of unspecified deep veins of right lower extremity; M60.003 Infective myositis, unspecified right leg; L02.415 Cutaneous abscess of right lower limb; M86.8X5 Other osteomyelitis, thigh; E11.51 Type 2 diabetes mellitus with diabetic peripheral angiopathy without gangrene; I48.91 Unspecified atrial fibrillation; I10 Essential (primary) hypertension; E78.00 Pure hypercholesterolemia, unspecified; K21.9 Gastro-esophageal reflux disease without esophagitis; N40.0 Benign prostatic hyperplasia without lower urinary tract symptoms; N20.0 Calculus of kidney; M81.0 Age-related osteoporosis without current pathological fracture; F41.9 Anxiety disorder, unspecified; F32.9 Major depressive disorder, single episode, unspecified; E11.36 Type 2 diabetes mellitus with diabetic cataract; E78.5 Hyperlipidemia, unspecified; B95.62 Methicillin resistant Staphylococcus aureus infection as the cause of diseases classified elsewhere; Y82.8 Other medical devices associated with adverse incidents; E11.69 Type 2 diabetes mellitus with other specified complication; G47.33 Obstructive sleep apnea (adult) (pediatric); R79.1 Abnormal coagulation profile; Z85.118 Personal history of other malignant neoplasm of bronchus and lung; Z85.820 Personal history of malignant melanoma of skin; Z85.830 Personal history of malignant neoplasm of bone; Z88.1 Allergy status to other antibiotic agents; Z88.8 Allergy status to other drugs, medicaments and biological substances; Z82.49 Family history of ischemic heart disease and other diseases of the circulatory system; Z83.3 Family history of diabetes mellitus; Z87.891 Personal history of nicotine dependence; Z91.14 Patient's other noncompliance with medication regimen; Y92.009 Unspecified place in unspecified non-institutional (private) residence as the place of occurrence of the external cause; Z79.01 Long term (current) use of anticoagulants
CPT/HCPCS: 36415; 80048; 80053; 80202; 82565; 83036; 84520; 85025; 85027; 85610; 85730; 86140; 87070; 87077; 87186; 87205; 87640; 87641; 93005; 94640; 99284; A9270-GY; J1630; J1650; J2543; J3370; J3480; J3490; Q9967

== ENCOUNTER 2018-12-22 16:37 | Inpatient (IN) | payer MEDICARE ==
[2018-12-22] MEDS ORDERED: Metoprolol Tartrate IV* 1 MG/ML 5 ML VIAL IV PRN (17:58)
[2018-12-22] MEDS ORDERED: Albuterol HFA INHALER* 8 gm MDI INH PRN (18:00)
[2018-12-22] MEDS ORDERED: Vancomycin per Pharmacy* NOTE FOLLOW UP PRN (18:00)
[2018-12-22] MEDS: Acetaminophen TAB* 325 MG PO PRN (19:30)
[2018-12-22] MEDS: Diazepam TAB(*) 5 MG PO PRN (20:24)
[2018-12-22] MEDS: Melatonin 3 MG TAB PO PRN (20:24)
[2018-12-22] MEDS: Rivaroxaban TAB(*) 15 MG PO SCH (20:24)
[2018-12-23] MEDS: Vancomycin(*) 1,250 MG in NS 0.9% 250 ML* 250 ML IVPB SCH ×2 (00:26→12:15)
[2018-12-23] MEDS: Acetaminophen TAB* 325 MG PO PRN ×3 (00:37→21:08)
[2018-12-23] MEDS: Diazepam TAB(*) 5 MG PO PRN ×4 (02:52→21:10)
[2018-12-23] MEDS: Rivaroxaban TAB(*) 15 MG PO SCH ×2 (08:43→21:08)
[2018-12-23] MEDS: Diltiazem CD CAP* 120 MG PO SCH (08:43)
[2018-12-24] MEDS: Vancomycin(*) 1,250 MG in NS 0.9% 250 ML* 250 ML IVPB SCH ×2 (00:53→13:12)
[2018-12-24] MEDS: Diazepam TAB(*) 5 MG PO PRN ×2 (08:19→22:05)
[2018-12-24] MEDS: Rivaroxaban TAB(*) 15 MG PO SCH ×2 (08:20→22:07)
[2018-12-24] MEDS: Diltiazem CD CAP* 120 MG PO SCH (08:20)
[2018-12-24] MEDS: Acetaminophen TAB* 325 MG PO PRN ×2 (08:20→22:06)
[2018-12-24] MEDS ORDERED: Vancomycin Trough Check NOTE FOLLOW UP ONE (12:00)
--- NOTE | 2018-12-24 14:05 | PN ---
Subjective Date of Service: 12/24/18 Interval History: Has a sitter.Per nursing slept well last night and less confused. Able to have a conversation.Denies any complaints Objective Active Medications: Acetaminophen (Tylenol Tab*) 650 mg PO Q4H PRN PRN Reason: FEVER/PAIN Last Admin: 12/24/18 08:20 Dose: 650 mg Albuterol (Ventolin Hfa Inhaler*) 2 puff INH Q6H PRN PRN Reason: SHORTNESS OF BREATH Last Admin: 12/24/18 11:38 Dose: 2 puff Diazepam (Valium Tab(*)) 5 mg PO Q6H PRN PRN Reason: ANXIETY Last Admin: 12/24/18 08:19 Dose: 5 mg Diltiazem HCl (Cardizem Cd Cap*) 120 mg PO DAILY [facility] Last Admin: 12/24/18 08:20 Dose: 120 mg Vancomycin HCl 1,250 mg/ (Sodium Chloride) 250 mls @ 166.667 mls/hr IVPB Q12H [facility] Last Admin: 12/24/18 13:12 Dose: 166.667 mls/hr Melatonin (Melatonin) 3 mg PO BEDTIME PRN PRN Reason: SLEEP Last Admin: 12/22/18 20:24 Dose: 3 mg Metoprolol Tartrate (Lopressor Iv*) 5 mg IV Q6H PRN PRN Reason: FOR HR > 120 Pharmacy Consult (Vancomycin Per Pharmacy*) 1 note FOLLOW UP . PRN PRN Reason: PER PROTOCOL Rivaroxaban (Xarelto(*)) 15 mg PO BID [facility] Stop: 01/04/19 21:01 Last Admin: 12/24/18 08:20 Dose: 15 mg Vital Signs - 8 hr 12/24/18 12/24/18 12/24/18 08:00 08:19 09:36 Temperature 98.0 F Pulse Rate 115 Respiratory 16 16 16 Rate Blood Pressure 151/90 (mmHg) O2 Sat by Pulse 98 Oximetry 12/24/18 11:42 Temperature Pulse Rate Respiratory 16 Rate Blood Pressure (mmHg) O2 Sat by Pulse Oximetry Oxygen Devices in Use Now: None Eyes: No Scleral Icterus Ears/Nose/Mouth/Throat: NL Teeth, Lips, Gums Neck: NL Appearance and Movements; NL JVP Respiratory: Symmetrical Chest Expansion and Respiratory Effort Cardiovascular: NL Sounds; No Murmurs; No JVD, - - irregularly irregular Abdominal: NL Sounds; No Tenderness; No Distention Extremities: - - 2+ Edema bilaterally R LE has ongoing erythema improved.L LE with edema.Non tender Neurological: Alert and Oriented x 3 Assess/Plan/Problems-Billing Assessment: - Patient Problems (1) Cellulitis of right thigh Current Visit: No Status: Acute Code(s): L03.115 - CELLULITIS OF RIGHT LOWER LIMB SNOMED Code(s): 66741529219746487 Comment: s/p sarcoma resection in September now with cellulitis, myositis and possible osteomyelitis +MRSA Daily packing and dressing change Vancomycin goal 10-15 Was followed by ID and surgery Surgery thought more c/w seroma than abscess after sarcoma resection. Discharged to swing status.Pl refer to d/c summary by Dr Castro for full details Poss underlying osteomyelitis Plan for 4-6 weeks of Vancomycin Pt recieving currently (2) DVT (deep venous thrombosis) Current Visit: No Status: Acute Priority: Medium Code(s): I82.409 - ACUTE EMBOLISM AND THOMBOS UNSP DEEP VN UNSP LOWER EXTREMITY SNOMED Code(s): 763522069 Comment: xarelto 15mg x 21 days then 20mg daily (day 01/14) - US shows occlusive peroneal DVT RLE (3) Confusion Current Visit: No Status: Acute Priority: Medium Code(s): R41.0 - DISORIENTATION, UNSPECIFIED SNOMED Code(s): 283676343 Comment: -patient needs to be in adult home or SNF-rehab after discharge -Will not be able to admin IV abx at home -Psychiatry consulted, decided does not have capacity to leave hospital AMA. - negative MRI brain, TSH, RPR, all with in the last year. -Swing status currently.Needs placement.D/W Case (4) Afib Current Visit: No Status: Chronic Priority: Medium Code(s): I48.91 - UNSPECIFIED ATRIAL FIBRILLATION SNOMED Code(s): 95628114 Comment: - Rate controlled - Continue diltiazem, Xarelto
[2018-12-25] MEDS: Vancomycin(*) 1,250 MG in NS 0.9% 250 ML* 250 ML IVPB SCH ×2 (00:59→12:34)
[2018-12-25] MEDS: Diltiazem CD CAP* 120 MG PO SCH (08:27)
[2018-12-25] MEDS: Rivaroxaban TAB(*) 15 MG PO SCH ×2 (08:27→21:49)
[2018-12-25] MEDS: Diazepam TAB(*) 5 MG PO PRN ×3 (08:27→21:48)
[2018-12-25] MEDS: Acetaminophen TAB* 325 MG PO PRN ×2 (08:28→14:06)
[2018-12-25 14:10] LABS: ABS Basophils 0.1 10^3/ul (0-0.2); ABS Eosinophils 0.3 10^3/ul (0-0.6); ABS Lymphocytes 0.9 10^3/ul (1.0-4.8); ABS Monocytes 0.5 10^3/ul (0-0.8); ABS Neutrophils 4.2 10^3/ul (1.5-7.7); Eosinophil % 4.4 %; Hematocrit 35 % (42-52); Hemoglobin 12.2 g/dL (14.0-18.0); Lymphocyte % 15.5 %; Mean Corpuscular HGB Conc 35 g/dL (31-36); Mean Corpuscular Hemoglobin 31 pg (27-31); Mean Corpuscular Volume 90 fL (80-94); Mean Platelet Volume 7.5 fL (7.4-10.4); Nucleated Red Blood Cells % 0.1; Platelet Count 315 10^3/uL (150-450); Red Blood Count 3.91 10^6 /uL (4.18-5.48); Red Cell Distribution Width 15 % (10-15)
[2018-12-25 14:48] LABS: BUN/Creatinine Ratio 13.3 (8-20); Calcium 9.3 mg/dL (8.6-10.3); EGFR African American 123.9 (>60); EGFR Non-African American 102.4 (>60); Potassium 3.9 mmol/L (3.5-5.0)
[2018-12-25] MEDS: Melatonin 3 MG TAB PO PRN (21:48)
[2018-12-26] MEDS: Vancomycin(*) 1,250 MG in NS 0.9% 250 ML* 250 ML IVPB SCH ×2 (00:56→12:48)
[2018-12-26] MEDS: Acetaminophen TAB* 325 MG PO PRN ×3 (07:19→18:43)
[2018-12-26] MEDS: Diazepam TAB(*) 5 MG PO PRN ×3 (07:19→18:43)
[2018-12-26] MEDS: Diltiazem CD CAP* 120 MG PO SCH (09:02)
[2018-12-26] MEDS: Rivaroxaban TAB(*) 15 MG PO SCH ×2 (09:02→21:31)
[2018-12-26] MEDS ORDERED: LORazepam INJ* 2 MG/ML 1 ML VIAL IV PUSH ONE (13:28)
[2018-12-26] MEDS ORDERED: Lorazepam PYXIS KEY PRN (13:28)
[2018-12-26] MEDS: Melatonin 3 MG TAB PO PRN (21:31)
--- NOTE | 2018-12-26 22:15 | DS ---
CC: Dr. Del Valle; Dr. Farooq; Yusuf Carlson * DISCHARGE SUMMARY: DATE OF ADMISSION: 12/14/18 DATE OF DISCHARGE TO SWING STATUS: 12/22/18 DATE OF DISCHARGE: 12/27/18 CONSULTING INFECTIOUS DISEASE SPECIALIST: Dr. Del Valle. PRIMARY CARE PROVIDER: Dr. Farooq. DISCHARGE DIAGNOSES: 1. Right thigh cellulitis and myositis with concern for possible osteomyelitis. 2. Lower extremity deep venous thrombosis. SECONDARY DIAGNOSES: 1. Hypertension. 2. Atrial fibrillation. 3. Hyperlipidemia. 4. Gastroesophageal reflux disease. 5. Anxiety. 6. Type 2 diabetes. 7. Obstructive sleep apnea, not on therapy. 8. Sarcoma of the right lower extremity, status post resection. 9. Non-small cell lung cancer. 10. Long QT syndrome. MEDICATIONS AT THE TIME OF DISCHARGE: 1. Acetaminophen 650 mg p.o. q.4 hours p.r.n. pain or fever. 2. Albuterol 2 puffs inhaled q.6 hours p.r.n. shortness of breath or wheezing. 3. Diazepam 5 mg p.o. q.6 hours p.r.n. anxiety. 4. Cardizem CD 120 mg p.o. daily. 5. Melatonin 3 mg p.o. at bedtime as needed for insomnia. 6. Vancomycin 1250 mg IV q.12 hours, today is day 10 of . 7. Xarelto 15 mg twice a day for 21 days (started on 12/18/18) and after that convert to 20 mg daily. HOSPITAL COURSE: Mr. Hernandes is a 73-year-old male with a past medical history as stated above, who presented to the emergency room after being found to have a new DVT on the right lower extremity. He was also found to have cellulitis in the area of prior sarcoma resection of his right thigh with draining sinus. There was concern for cellulitis, an area of nonhealing wound as well as underlying myositis/fasciitis. He was seen by Infectious Disease and their impression is that the patient has MRSA cellulitis, myositis, abscess of the right thigh, and acute osteomyelitis, status post bedside I and D with General Surgery. The recommendation was to continue vancomycin to complete 28 days, to have weekly CBC, CMP, CRP and vanco trough. For more details about his presentation, I refer you to Dr. Castro's discharge summary from 12/22/18. Of note is the fact that the patient was seen in consultation by Psychiatry and found not to have capacity to leave the hospital against medical advice and he continued to lack capacity when he was transferred to swing status. While on swing status, the patient had no significant changes in his condition and the plan is for him to receive a PICC line so he can continue his treatment. He will need followup with Dr. Del Valle as an outpatient. Surgery recommended to continue current wound care with normal saline irrigation , packing in the wound and covering with 4x4s. 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 PHYSICAL EXAMINATION: Vital Signs: Temperature 97.3, heart rate is 83, respiratory rate is 16, oxygen saturation 100% on room air, blood pressure is 148/83. General: The patient is an elderly gentleman, sitting up in a chair, in no acute distress. CVS: Normal S1, S2. Irregularly irregular. Chest: Breath sounds present bilaterally with no added sounds. Neuro: The patient is alert and oriented x3. Able to move all 4 extremities. Extremities: There is 2+ edema on the right lower extremity, but erythema has improved. DIET: Heart-healthy diet. ACTIVITIES: As tolerated. DISPOSITION: To [facility]. STATUS WHILE IN THE HOSPITAL: Swing status. CONDITION: Fair. Please keep in mind that this is a summarized version of this patient's complex hospital stay. If you need more information, please feel free to call me at [phone] or please obtain full medical records. TIME SPENT: Approximately 50 minutes was spent to complete this discharge. [id number]/CPS #: [id number] MARCUS
[2018-12-26] MEDS ORDERED: oxyCODONE TAB* 5 MG TAB PO ONE (23:00)
[2018-12-27] MEDS: Vancomycin(*) 1,250 MG in NS 0.9% 250 ML* 250 ML IVPB SCH (00:40)
[2018-12-27] MEDS: Rivaroxaban TAB(*) 15 MG PO SCH (07:18)
[2018-12-27] MEDS: Acetaminophen TAB* 325 MG PO PRN (07:18)
[2018-12-27] MEDS: Diltiazem CD CAP* 120 MG PO SCH (07:18)
[2018-12-27] MEDS: Diazepam TAB(*) 5 MG PO PRN (07:19)
[2018-12-27 09:20] VITALS: BP 138/83
--- NOTE | 2018-12-27 11:46 | PN ---
Progress Note - Progress Note Date of Service: 12/27/18 Note: S: Asked to see Mr. Fletcher prior to tx to SNF to address wound care issues. He denies pain ("occasional twinge"). O: Vital Signs - 8 hr 12/27/18 12/27/18 12/27/18 06:55 07:19 08:00 Temperature 97.6 F Pulse Rate 65 Respiratory 18 16 17 Rate Blood Pressure 138/83 (mmHg) O2 Sat by Pulse 100 Oximetry Gen: appears comfortable R thigh: open wound w/ moderate clear aurora drainage; probes in superior direction. No erythema or tenderness. 1/2" packing replaced w/ DSD cover A/P: chronic wound Right thigh s/p surgical excision of soft tissue sarcoma and s/p XRT. Cont current wound care; further direction per his team in [place].
[2018-12-27] MEDS ORDERED: Vancomycin Trough Check NOTE FOLLOW UP ONE (12:30)
== END 2018-12-27 11:40 | DRG 638 ==
LOC: MED 16:37
PROVIDERS: ADMIT Internal Medicine; ATTEND Internal Medicine
DX: E11.69 Type 2 diabetes mellitus with other specified complication (principal); C34.90 Malignant neoplasm of unspecified part of unspecified bronchus or lung; M86.151 Other acute osteomyelitis, right femur; L02.415 Cutaneous abscess of right lower limb; B95.62 Methicillin resistant Staphylococcus aureus infection as the cause of diseases classified elsewhere; I82.491 Acute embolism and thrombosis of other specified deep vein of right lower extremity; M60.9 Myositis, unspecified; R41.0 Disorientation, unspecified; I48.91 Unspecified atrial fibrillation; I10 Essential (primary) hypertension; E78.5 Hyperlipidemia, unspecified; K21.9 Gastro-esophageal reflux disease without esophagitis; F41.9 Anxiety disorder, unspecified; G47.33 Obstructive sleep apnea (adult) (pediatric); C76.51 Malignant neoplasm of right lower limb; I45.81 Long QT syndrome; Z79.01 Long term (current) use of anticoagulants
CPT/HCPCS: 36415; 71045; 80048; 80202; 85025; A9270-GY; J3370